=== PATIENT | male | born 1980 | race Two or more races ===

== ENCOUNTER 2018-06-10 12:41 | Emergency (ER) | payer MEDICAID ==
[~2018-06-10] VITALS: Ht 182.9 cm; Wt 82.0 kg
[2018-06-10] MEDS ORDERED: NOVOLIN 70/30 (13:50)
[2018-06-10 14:15] VITALS: BP 127/81
== END 2018-06-10 14:19 | disposition home or self-care (01) ==
LOC: ED 14:05
DX: G56.03 Carpal tunnel syndrome, bilateral upper limbs (principal); E11.65 Type 2 diabetes mellitus with hyperglycemia
CPT/HCPCS: 99283

== ENCOUNTER 2018-09-06 01:28 | Inpatient (IN) | payer MEDICAID ==
[~2018-09-06] VITALS: Ht 185.4 cm; Wt 76.1 kg
[~2018-09-06 01:28] MED LIST: NOVOLIN 70/30
[2018-09-06] MEDS ORDERED: SODIUM CHLORIDE 0.9% 1,000ML IVBOLUS ONE ×2 (01:30→05:00)
[2018-09-06] MEDS ORDERED: SODIUM CHLORIDE FLUSH 10ML SYR IVF ONE (01:30)
[2018-09-06] MEDS ORDERED: SODIUM BICARB 8.4%, 50ML SYRINGE ONE ×2 (01:36→14:07)
[2018-09-06] MEDS ORDERED: CALCIUM CHLORIDE 10%, 10ML SYR ONE (01:42)
[2018-09-06] MEDS ORDERED: DEXTROSE 50%, 50ML SYRINGE ONE (01:53)
[2018-09-06] MEDS ORDERED: ALBUTEROL 0.5%, 20ML ONE (01:54)
[2018-09-06] MEDS ORDERED: ALBUTEROL 0.5%, 20ML NPPB ONE (02:00)
[2018-09-06] MEDS ORDERED: CALCIUM CHLORIDE 10%, 10ML SYR IVPush ONE (02:00)
[2018-09-06] MEDS ORDERED: SODIUM BICARB 8.4%, 50ML SYRINGE IVPush ONE (02:00)
[2018-09-06 02:03] LABS: ALANINE AMINOTRANSFERASE 33 U/L (12-78); ALBUMIN 2.9 g/dL (3.4-5.0); ANION GAP 40 mmol/L (5-15); CALCIUM 8.1 mg/dL (8.5-10.1); CHLORIDE 84 mmol/L (98-107); CREATININE 4.02 mg/dL (0.7-1.3)
[2018-09-06 02:06] LABS: ALKALINE PHOSPHATASE 122 U/L (45-117); BILIRUBIN,TOTAL 0.5 mg/dL (0.2-1.0); CREATINE KINASE, TOTAL 136 U/L (39-308); TOTAL PROTEIN 6.2 g/dL (6.4-8.2)
[2018-09-06 02:13] LABS: ACETONE, SERUM Large (80mg/dL) mg/dL (Negative); MEAN CORPUSCULAR HEMOGLOBIN 30.2 pg (27.5-34.5); MEAN CORPUSCULAR HGB CONC 31.5 g/dL (33.2-36.2); MEAN CORPUSCULAR VOLUME 95.8 fL (81-97); MEAN PLATELET VOLUME 10.3 fL (7.4-10.4); PLATELET COUNT 254 x10^3/uL (130-400); RED BLOOD COUNT 4.47 x10^6/uL (4.38-5.82); RED CELL DISTRIBUTION WIDTH 15.3 % (9.4-14.8)
[2018-09-06 02:15] LABS: MICROSCOPIC NOT IND
[2018-09-06 02:16] LABS: CULTURE INDICATED? NO
[2018-09-06 02:30] LABS: BASOPHILS # (AUTO) 0.05 x10^3/uL (0-0.1); BASOPHILS % (AUTO) 0 % (0-1); EOSINOPHILS # (AUTO) 0.01 x10^3/uL (0-0.4); EOSINOPHILS % (AUTO) 0 % (1-7); LYMPHOCYTES # (AUTO) 1.49 x10^3/uL (1-3.4); LYMPHOCYTES % (AUTO) 7 % (22-44); MD SCAN; MONOCYTES # (AUTO) 1.09 x10^3/uL (0.2-0.8); MONOCYTES % (AUTO) 5 % (2-9); NEUTROPHILS # (AUTO) 19.33 x10^3/uL (1.8-6.8); NEUTROPHILS % (AUTO) 88 % (42-75)
[2018-09-06] MEDS ORDERED: MIDAZOLAM 1 MG/ML, 2ML IVPush ONE (02:30)
[2018-09-06] MEDS ORDERED: ETOMIDATE 20 MG/10 ML IVPush ONE (02:30)
[2018-09-06] MEDS ORDERED: ROCURONIUM 10 MG/ML,10ML IVPush ONE (02:30)
[2018-09-06] MEDS: MIDAZOLAM HCL 25 MG in SODIUM CHLORIDE 0.9% 245 ML IV PRN ×2 (02:46→06:45)
[2018-09-06] MEDS: REGULAR INSULIN 62.5 UNITS in SODIUM CHLORIDE 0.9% 249.375 ML IV PRN ×2 (02:49→03:14)
[2018-09-06 02:51] LABS: AMPHETAMINE SCREEN, URINE Positive (Negative); BARBITURATE SCREEN, URINE Negative (Negative); BENZODIAZEPINE SCREEN, URINE Negative (Negative); CANNABINOID SCREEN, URINE Negative (Negative); COCAINE SCREEN, URINE Negative (Negative); METHADONE SCREEN, URINE Negative (Negative); OPIATE SCREEN, URINE Negative (Negative)
[2018-09-06] MEDS ORDERED: REGULAR INSULIN 62.5 UNITS in SODIUM CHLORIDE 0.9% 249.375 ML IV PRN ×2 (03:11→08:30)
[2018-09-06] MEDS ORDERED: D5%-0.45% NACL 1,000 ML IV PRN (03:11)
[2018-09-06] MEDS ORDERED: ONDANSETRON 2MG/ML, 2ML IVPush PRN (03:30)
[2018-09-06 03:52] LABS: HEMOGLOBIN A1C 13.8 % (4.2-6.3)
[2018-09-06] MEDS: SODIUM CHLORIDE 0.9% 1,000 ML IV SCH ×3 (04:15→16:33)
[2018-09-06 04:54] LABS: MEAN CORPUSCULAR HEMOGLOBIN 29.5 pg (27.5-34.5); MEAN CORPUSCULAR HGB CONC 32.2 g/dL (33.2-36.2); MEAN CORPUSCULAR VOLUME 91.6 fL (81-97); MEAN PLATELET VOLUME 9.2 fL (7.4-10.4); PLATELET COUNT 313 x10^3/uL (130-400); RED BLOOD COUNT 4.53 x10^6/uL (4.38-5.82); RED CELL DISTRIBUTION WIDTH 14.3 % (9.4-14.8)
[2018-09-06 04:56] LABS: CHLORIDE 99 mmol/L (98-107); CREATININE 3.59 mg/dL (0.7-1.3)
[2018-09-06] MEDS ORDERED: NOREPINEPHRINE 4 MG in SODIUM CHLORIDE 0.9% 246 ML IV PRN (05:00)
[2018-09-06 05:05] LABS: CALCIUM 8.1 mg/dL (8.5-10.1)
[2018-09-06 05:06] LABS: ANION GAP 33 mmol/L (5-15)
[2018-09-06 05:16] LABS: BASOPHILS # (AUTO) 0.03 x10^3/uL (0-0.1); BASOPHILS % (AUTO) 0 % (0-1); EOSINOPHILS % (AUTO) 0 % (1-7); LYMPHOCYTES # (AUTO) 2.89 x10^3/uL (1-3.4); LYMPHOCYTES % (AUTO) 13 % (22-44); MD SCAN; MONOCYTES # (AUTO) 1.47 x10^3/uL (0.2-0.8); MONOCYTES % (AUTO) 7 % (2-9); NEUTROPHILS % (AUTO) 81 % (42-75)
[2018-09-06 06:15] VITALS: BP 95/55
[2018-09-06 07:02] VITALS: BP 87/43
[2018-09-06 07:54] LABS: ANION GAP 24 mmol/L (5-15); CALCIUM 8.3 mg/dL (8.5-10.1); CHLORIDE 108 mmol/L (98-107)
[2018-09-06] MEDS ORDERED: PHARMACY MAY ADJ FOR RENAL FX MC SCH (08:00)
[2018-09-06] MEDS ORDERED: PROPOFOL 0 ML IV ONE (08:05)
[2018-09-06] MEDS ORDERED: VANCOMYCIN PER PHARMACY MC PRN (08:30)
[2018-09-06] MEDS: PROPOFOL 100 ML IV PRN ×2 (08:57→13:58)
[2018-09-06] MEDS: ACETAMINOPHEN 325 MG TABLET PO PRN ×3 (08:58→17:50)
[2018-09-06] MEDS ORDERED: PHARMACOKINETIC MONITORING MC PRN (10:00)
[2018-09-06] MEDS ORDERED: VANCOMYCIN 1,400 MG in SODIUM CHLORIDE 0.9% 250 ML IV ONE (10:00)
[2018-09-06 11:48] LABS: ANION GAP 11 mmol/L (5-15); CALCIUM 8.3 mg/dL (8.5-10.1); CHLORIDE 114 mmol/L (98-107); CREATININE 2.84 mg/dL (0.7-1.3)
[2018-09-06] MEDS: LIDOCAINE-MPF 1%, 2ML ENDO PRN ×2 (13:02→17:36)
[2018-09-06] MEDS ORDERED: MORPHINE SULFATE 4 MG/ML, 1ML IVPush PRN (13:30)
[2018-09-06] MEDS ORDERED: ETOMIDATE 20 MG/10 ML ONE (15:16)
[2018-09-06] MEDS ORDERED: MIDAZOLAM 1 MG/ML, 5ML ONE (15:16)
[2018-09-06] MEDS ORDERED: ROCURONIUM 10MG/ML,5ML ONE (15:16)
[2018-09-06 15:56] LABS: ANION GAP 11 mmol/L (5-15); CALCIUM 8.4 mg/dL (8.5-10.1); CHLORIDE 117 mmol/L (98-107); CREATININE 2.42 mg/dL (0.7-1.3)
[2018-09-06] MEDS: MORPHINE SULFATE 4 MG/ML, 1ML IVPush PRN ×2 (16:43→17:39)
[2018-09-06] MEDS: DEXTROSE 5% 1,000 ML IV SCH (17:17)
[2018-09-06 19:58] LABS: ANION GAP 10 mmol/L (5-15); CALCIUM 8.4 mg/dL (8.5-10.1); CHLORIDE 118 mmol/L (98-107); CREATININE 2.04 mg/dL (0.7-1.3)
[2018-09-06] MEDS: PANTOPRAZOLE 40 MG IV IVPush SCH (23:04)
[2018-09-06 23:30] LABS: ANION GAP 9 mmol/L (5-15); CALCIUM 8.7 mg/dL (8.5-10.1); CHLORIDE 120 mmol/L (98-107); CREATININE 1.73 mg/dL (0.7-1.3)
[2018-09-07] MEDS ORDERED: DEXTROSE 4 GM TAB.CHEW PO PRN
[2018-09-07] MEDS ORDERED: DEXTROSE 50%, 50ML SYRINGE IVPush PRN
[2018-09-07] MEDS ORDERED: GLUCAGON 1 MG IM PRN
[2018-09-07] MEDS: PROPOFOL 100 ML IV PRN ×4 (00:21→22:18)
[2018-09-07] MEDS: INSULIN GLARGINE 100 UNITS/ML, PEN SQ-INSULIN SCH ×2 (00:26→13:38)
[2018-09-07 03:49] LABS: MEAN CORPUSCULAR HEMOGLOBIN 29.9 pg (27.5-34.5); MEAN CORPUSCULAR HGB CONC 33.7 g/dL (33.2-36.2); MEAN CORPUSCULAR VOLUME 88.6 fL (81-97); MEAN PLATELET VOLUME 8.5 fL (7.4-10.4); PLATELET COUNT 244 x10^3/uL (130-400); RED BLOOD COUNT 4.81 x10^6/uL (4.38-5.82)
[2018-09-07 03:52] LABS: ANION GAP 13 mmol/L (5-15); CALCIUM 8.6 mg/dL (8.5-10.1); CHLORIDE 117 mmol/L (98-107); CREATININE 1.56 mg/dL (0.7-1.3)
[2018-09-07 03:53] LABS: VANCOMYCIN,RANDOM 5.5 mcg/mL
[2018-09-07 04:20] LABS: MD YES
[2018-09-07 04:22] LABS: <PLATELET ESTIMATE> ADEQUATE; <PLT MORPHOLOGY> NORMAL PLT MORPH; <RBC MORPHOLOGY> NORMAL; BAND#(MANUAL) 0.16 x10^3/uL; BANDS%(MANUAL) 1 % (0-7); LYMPH#(MANUAL) 1.44 x10^3/uL (1-3.4); LYMPHS% (MANUAL) 9 % (22-44); MONOS#(MANUAL) 1.12 x10^3/uL (0.3-2.7); MONOS% (MANUAL) 7 % (2-9); SEG#(MANUAL) 13.28 x10^3/uL (1.8-6.8); SEGS% (MANUAL) 83 % (42-75)
[2018-09-07] MEDS: INSULIN LISPRO 100 UNITS/ML, PEN SQ-INSULIN SCH ×5 (06:28→22:17)
[2018-09-07] MEDS: DEXTROSE 5% 1,000 ML IV SCH (07:09)
[2018-09-07] MEDS: SODIUM CHLORIDE FLUSH 10ML SYR IVF SCH ×2 (09:04→19:57)
[2018-09-07] MEDS: PANTOPRAZOLE 40 MG IV IVPush SCH ×2 (09:04→19:57)
[2018-09-07 10:27] LABS: ANION GAP 12 mmol/L (5-15); CALCIUM 8.4 mg/dL (8.5-10.1); CHLORIDE 114 mmol/L (98-107)
[2018-09-07 10:28] LABS: CREATININE 1.57 mg/dL (0.7-1.3)
[2018-09-07] MEDS: SODIUM CHLORIDE 0.45% 1,000 ML IV SCH (13:38)
[2018-09-07 16:26] LABS: ANION GAP 10 mmol/L (5-15); CALCIUM 8.9 mg/dL (8.5-10.1); CHLORIDE 113 mmol/L (98-107); CREATININE 1.25 mg/dL (0.7-1.3)
[2018-09-07 21:46] LABS: ANION GAP 11 mmol/L (5-15); CALCIUM 8.7 mg/dL (8.5-10.1); CHLORIDE 107 mmol/L (98-107); CREATININE 1.14 mg/dL (0.7-1.3)
[2018-09-08] MEDS: INSULIN GLARGINE 100 UNITS/ML, PEN SQ-INSULIN SCH ×2 (00:58→11:36)
[2018-09-08] MEDS: INSULIN LISPRO 100 UNITS/ML, PEN SQ-INSULIN SCH ×6 (02:42→21:35)
[2018-09-08] MEDS: SODIUM CHLORIDE 0.45% 1,000 ML IV SCH ×2 (02:43→20:34)
[2018-09-08 03:50] LABS: MEAN CORPUSCULAR HEMOGLOBIN 29.5 pg (27.5-34.5); MEAN CORPUSCULAR HGB CONC 33.6 g/dL (33.2-36.2); MEAN CORPUSCULAR VOLUME 87.6 fL (81-97); MEAN PLATELET VOLUME 8.1 fL (7.4-10.4); PLATELET COUNT 210 x10^3/uL (130-400); RED CELL DISTRIBUTION WIDTH 14.1 % (9.4-14.8)
[2018-09-08 04:02] LABS: ALANINE AMINOTRANSFERASE 31 U/L (12-78); ALBUMIN 2.8 g/dL (3.4-5.0); ANION GAP 10 mmol/L (5-15); CALCIUM 8.8 mg/dL (8.5-10.1); CHLORIDE 105 mmol/L (98-107)
[2018-09-08 04:04] LABS: ALKALINE PHOSPHATASE 106 U/L (45-117); BILIRUBIN,TOTAL 0.9 mg/dL (0.2-1.0); TOTAL PROTEIN 6.6 g/dL (6.4-8.2)
[2018-09-08 04:26] LABS: BASOPHILS # (AUTO) 0.02 x10^3/uL (0-0.1); BASOPHILS % (AUTO) 0 % (0-1); EOSINOPHILS % (AUTO) 0 % (1-7); LYMPHOCYTES # (AUTO) 1.71 x10^3/uL (1-3.4); LYMPHOCYTES % (AUTO) 12 % (22-44); MD SCAN; MONOCYTES # (AUTO) 0.84 x10^3/uL (0.2-0.8); MONOCYTES % (AUTO) 6 % (2-9); NEUTROPHILS # (AUTO) 12.12 x10^3/uL (1.8-6.8); NEUTROPHILS % (AUTO) 83 % (42-75)
[2018-09-08] MEDS ORDERED: POTASSIUM PHOSPHATE 44 MEQ in SODIUM CHLORIDE 0.9% 500 ML IV ONE (08:00)
[2018-09-08] MEDS ORDERED: ALBUTEROL/IPRATROPIUM 2.5MG/0.5MG, 3 ML NPPB PRN (11:00)
[2018-09-08] MEDS: SODIUM CHLORIDE FLUSH 10ML SYR IVF SCH ×2 (11:33→21:00)
[2018-09-08] MEDS: ENOXAPARIN 40 MG/0.4 ML SQ SCH (14:30)
[2018-09-08 20:47] VITALS: BP 120/82
[2018-09-08 21:59] VITALS: BP 108/70
[2018-09-08] MEDS ORDERED: SODIUM CHLORIDE 0.45%, 1,000ML IVBOLUS ONE (22:30)
[2018-09-09 01:03] VITALS: BP 113/71
[2018-09-09] MEDS: INSULIN GLARGINE 100 UNITS/ML, PEN SQ-INSULIN SCH ×3 (01:28→23:26)
[2018-09-09] MEDS: SODIUM CHLORIDE 0.45% 1,000 ML IV SCH (05:23)
[2018-09-09 05:24] LABS: BASOPHILS # (AUTO) 0.04 x10^3/uL (0-0.1); BASOPHILS % (AUTO) 0 % (0-1); EOSINOPHILS # (AUTO) 0.02 x10^3/uL (0-0.4); EOSINOPHILS % (AUTO) 0 % (1-7); LYMPHOCYTES # (AUTO) 1.73 x10^3/uL (1-3.4); LYMPHOCYTES % (AUTO) 17 % (22-44); MD NO; MEAN CORPUSCULAR HEMOGLOBIN 29.6 pg (27.5-34.5); MEAN CORPUSCULAR HGB CONC 33.1 g/dL (33.2-36.2); MEAN CORPUSCULAR VOLUME 89.4 fL (81-97); MEAN PLATELET VOLUME 8.8 fL (7.4-10.4); MONOCYTES # (AUTO) 0.55 x10^3/uL (0.2-0.8); MONOCYTES % (AUTO) 5 % (2-9); NEUTROPHILS # (AUTO) 7.92 x10^3/uL (1.8-6.8); NEUTROPHILS % (AUTO) 77 % (42-75); PLATELET COUNT 184 x10^3/uL (130-400); RED BLOOD COUNT 5.01 x10^6/uL (4.38-5.82); RED CELL DISTRIBUTION WIDTH 13.7 % (9.4-14.8)
[2018-09-09] MEDS: INSULIN LISPRO 100 UNITS/ML, PEN SQ-INSULIN SCH ×4 (07:00→21:00)
[2018-09-09] MEDS: ENOXAPARIN 40 MG/0.4 ML SQ SCH (07:39)
[2018-09-09 07:48] VITALS: BP 107/71
[2018-09-09] MEDS: SODIUM CHLORIDE FLUSH 10ML SYR IVF SCH ×2 (08:13→21:53)
[2018-09-09 14:06] VITALS: BP 102/68
[2018-09-09 18:42] VITALS: BP 122/84
[2018-09-09] MEDS: ACETAMINOPHEN 325 MG TABLET PO PRN (22:22)
[2018-09-10 01:11] VITALS: BP 94/60
[2018-09-10] MEDS: INSULIN LISPRO 100 UNITS/ML, PEN SQ-INSULIN SCH ×4 (07:00→19:43)
[2018-09-10 07:17] VITALS: BP 124/79
[2018-09-10] MEDS: SODIUM CHLORIDE FLUSH 10ML SYR IVF SCH ×2 (09:00→19:31)
[2018-09-10] MEDS: ENOXAPARIN 40 MG/0.4 ML SQ SCH (09:05)
[2018-09-10] MEDS: INSULIN GLARGINE 100 UNITS/ML, PEN SQ-INSULIN SCH ×2 (11:00→22:43)
[2018-09-10] MEDS ORDERED: LIDOCAINE 2% VISCOUS, 100ML MM PRN ×2 (11:00)
[2018-09-10] MEDS ORDERED: LIDOCAINE 2% VISCOUS 15 ML UDC MM PRN (13:30)
[2018-09-10 13:50] VITALS: BP 109/73
[2018-09-10 19:03] VITALS: BP 112/75
[2018-09-11 03:42] VITALS: BP 113/80
[2018-09-11] MEDS: INSULIN LISPRO 100 UNITS/ML, PEN SQ-INSULIN SCH ×4 (07:00→19:56)
[2018-09-11] MEDS ORDERED: PLEASE ENTER HEIGHT AND WEIGHT MC SCH (07:00)
[2018-09-11] MEDS: ENOXAPARIN 40 MG/0.4 ML SQ SCH (07:35)
[2018-09-11] MEDS: SODIUM CHLORIDE FLUSH 10ML SYR IVF SCH ×2 (07:36→19:46)
[2018-09-11 08:30] VITALS: BP 113/76
[2018-09-11] MEDS: INSULIN GLARGINE 100 UNITS/ML, PEN SQ-INSULIN SCH ×2 (12:20→22:39)
[2018-09-11 14:30] VITALS: BP 101/58
[2018-09-11 19:41] VITALS: BP 118/76
[2018-09-12 00:46] VITALS: BP 116/73
[2018-09-12 05:45] LABS: BASOPHILS # (AUTO) 0.02 x10^3/uL (0-0.1); BASOPHILS % (AUTO) 0 % (0-1); EOSINOPHILS % (AUTO) 1 % (1-7); LYMPHOCYTES # (AUTO) 1.83 x10^3/uL (1-3.4); LYMPHOCYTES % (AUTO) 24 % (22-44); MD NO; MEAN CORPUSCULAR HEMOGLOBIN 29.8 pg (27.5-34.5); MEAN CORPUSCULAR HGB CONC 33.9 g/dL (33.2-36.2); MEAN CORPUSCULAR VOLUME 87.9 fL (81-97); MEAN PLATELET VOLUME 8.3 fL (7.4-10.4); MONOCYTES # (AUTO) 0.96 x10^3/uL (0.2-0.8); MONOCYTES % (AUTO) 12 % (2-9); NEUTROPHILS # (AUTO) 4.86 x10^3/uL (1.8-6.8); NEUTROPHILS % (AUTO) 63 % (42-75); PLATELET COUNT 293 x10^3/uL (130-400); RED BLOOD COUNT 4.41 x10^6/uL (4.38-5.82)
[2018-09-12 06:42] LABS: ALBUMIN 2.3 g/dL (3.4-5.0); ANION GAP 8 mmol/L (5-15); CALCIUM 8.2 mg/dL (8.5-10.1); CHLORIDE 108 mmol/L (98-107)
[2018-09-12 06:44] LABS: CREATININE 0.61 mg/dL (0.7-1.3)
[2018-09-12] MEDS: INSULIN LISPRO 100 UNITS/ML, PEN SQ-INSULIN SCH ×2 (07:00→11:00)
[2018-09-12] MEDS: ENOXAPARIN 40 MG/0.4 ML SQ SCH (08:10)
[2018-09-12] MEDS: SODIUM CHLORIDE FLUSH 10ML SYR IVF SCH (08:11)
[2018-09-12 08:30] VITALS: BP 127/80
[2018-09-12] MEDS ORDERED: LACTOBACILLUS 1GM/ PACKET PO SCH (09:00)
[2018-09-12] MEDS ORDERED: CIPROFLOXACIN 500 MG TABLET PO SCH (09:00)
[2018-09-12] MEDS ORDERED: KETOROLAC 30 MG/1 ML IVPush SCH (09:30)
[2018-09-12] MEDS: INSULIN GLARGINE 100 UNITS/ML, PEN SQ-INSULIN SCH (12:20)
[2018-09-12] MEDS ORDERED: INSU100I13 SQ-INSULIN (12:30)
[2018-09-12] MEDS ORDERED: ACID1GRA3 PO (12:30)
[2018-09-12] MEDS ORDERED: CIPR500T87 PO (12:30)
[2018-09-12] MEDS ORDERED: KETO10TA PO (12:31)
== END 2018-09-12 14:30 | disposition home or self-care (01) | DRG 208 ==
LOC: ED 02:30 → MERGE 02:31 → EDIP 02:31 → EDBD 02:31 → ED 02:38 → CCU 03:49 → 5SO 09-08 18:34 → 3NE 09-09 17:06 → DCLOUNGE 09-12 14:13
PROVIDERS: ADMIT Hospitalist; ATTEND Hospitalist
PROC: 5A1945Z Respiratory Ventilation, 24-96 Consecutive Hours (ICD-10-PCS; principal; 2018-09-06)
PROC: 02HV33Z Insertion of Infusion Device into Superior Vena Cava, Percutaneous Approach (ICD-10-PCS; 2018-09-06)
PROC: 0BH17EZ Insertion of Endotracheal Airway into Trachea, Via Natural or Artificial Opening (ICD-10-PCS; 2018-09-06)
PROC: BD11YZZ Fluoroscopy of Esophagus using Other Contrast (ICD-10-PCS; 2018-09-12)
DX: J96.00 Acute respiratory failure, unspecified whether with hypoxia or hypercapnia (principal); E11.10 Type 2 diabetes mellitus with ketoacidosis without coma; G92 Toxic encephalopathy; N17.0 Acute kidney failure with tubular necrosis; E87.0 Hyperosmolality and hypernatremia; E87.1 Hypo-osmolality and hyponatremia; R65.10 Systemic inflammatory response syndrome (SIRS) of non-infectious origin without acute organ dysfunction; Z99.11 Dependence on respirator [ventilator] status; E83.51 Hypocalcemia; E86.0 Dehydration; E87.5 Hyperkalemia; J02.9 Acute pharyngitis, unspecified; E87.8 Other disorders of electrolyte and fluid balance, not elsewhere classified; F15.10 Other stimulant abuse, uncomplicated; Z51.5 Encounter for palliative care; Z87.828 Personal history of other (healed) physical injury and trauma; Z91.19 Patient's noncompliance with other medical treatment and regimen; Z23 Encounter for immunization
CPT/HCPCS: 31500; 36415; 36556; 36600; 71045; 74220; 76770; 80047; 80048; 80053; 80074; 80202; 80307; 81003; 82010; 82040; 82550; 82803; 82805; 82947; 82962; 83036; 83690; 83735; 84100; 84478; 85025; 86803; 87040; 87070; 87077; 87081; 87147; 87205; 87806; 90656; 93005; 93306; 94002; 94003; 96374; 96375; 99291; G0378; J1650; J1815; J1885; J2250; J2704; J3370; J3490; J7070; C9113; G0475; J7030; J7040; J7050

== ENCOUNTER 2018-09-22 21:35 | Emergency (ER) | payer MEDICAID ==
[~2018-09-22] VITALS: Ht 185.4 cm; Wt 85.0 kg
[~2018-09-22 21:35] MED LIST changes: +ACID1GRA3 PO; +CIPR500T87 PO; +INSU100I13 SQ-INSULIN; +KETO10TA PO
[2018-09-22 22:26] LABS: BASOPHILS # (AUTO) 0.04 x10^3/uL (0-0.1); BASOPHILS % (AUTO) 0 % (0-1); EOSINOPHILS # (AUTO) 0.02 x10^3/uL (0-0.4); EOSINOPHILS % (AUTO) 0 % (1-7); LYMPHOCYTES # (AUTO) 2.06 x10^3/uL (1-3.4); LYMPHOCYTES % (AUTO) 21 % (22-44); MD NO; MEAN CORPUSCULAR HEMOGLOBIN 30.1 pg (27.5-34.5); MEAN CORPUSCULAR HGB CONC 34.1 g/dL (33.2-36.2); MEAN CORPUSCULAR VOLUME 88.3 fL (81-97); MEAN PLATELET VOLUME 7.5 fL (7.4-10.4); MONOCYTES # (AUTO) 0.66 x10^3/uL (0.2-0.8); MONOCYTES % (AUTO) 7 % (2-9); NEUTROPHILS # (AUTO) 7.28 x10^3/uL (1.8-6.8); NEUTROPHILS % (AUTO) 72 % (42-75); PLATELET COUNT 456 x10^3/uL (130-400); RED BLOOD COUNT 4.03 x10^6/uL (4.38-5.82); RED CELL DISTRIBUTION WIDTH 14.6 % (9.4-14.8)
[2018-09-22] MEDS ORDERED: ONDANSETRON ODT 4 MG ONE (22:28)
[2018-09-22] MEDS ORDERED: ONDANSETRON ODT 4 MG PO ONE (22:30)
[2018-09-22 22:39] LABS: ALANINE AMINOTRANSFERASE 57 U/L (12-78); ALBUMIN 2.8 g/dL (3.4-5.0); ANION GAP 10 mmol/L (5-15); CALCIUM 8.4 mg/dL (8.5-10.1); CHLORIDE 97 mmol/L (98-107)
[2018-09-22 22:41] LABS: TROPONIN I < 0.015 ng/mL (0.000-0.045)
[2018-09-22 22:43] LABS: ALKALINE PHOSPHATASE 119 U/L (45-117); BILIRUBIN,TOTAL 0.4 mg/dL (0.2-1.0); TOTAL PROTEIN 6.6 g/dL (6.4-8.2)
[2018-09-22 23:34] VITALS: BP 115/76
== END 2018-09-22 23:36 | disposition home or self-care (01) ==
LOC: ED 23:17
DX: R11.2 Nausea with vomiting, unspecified (principal); R19.7 Diarrhea, unspecified; R10.84 Generalized abdominal pain; R07.2 Precordial pain; E11.65 Type 2 diabetes mellitus with hyperglycemia
CPT/HCPCS: 36415; 71045; 80053; 82962; 83690; 83880; 84484; 85025; 93005; 99285; Q0162

== ENCOUNTER 2019-02-24 17:48 | Emergency (ER) | payer MEDICAID ==
[~2019-02-24] VITALS: Ht 182.9 cm; Wt 86.0 kg
[2019-02-24 18:01] VITALS: BP 124/73
[2019-02-24] MEDS ORDERED: PROPARACAINE OPHTH 0.5%, 15ML EACHEYE ONE (18:30)
[2019-02-24] MEDS ORDERED: FLUORESCEIN OPHTHALMIC 1 MG STRIP EACHEYE ONE (18:30)
--- NOTE | 2019-02-24 20:13 | NUR ---
pt not in lobby when called to room
--- NOTE | 2019-02-24 20:16 | NUR ---
pt called, not in lobby
--- NOTE | 2019-02-24 20:45 | NUR ---
not in lobby
== END 2019-02-24 20:47 | disposition left against medical advice (07) ==
LOC: ED 20:41
DX: H57.89 Other specified disorders of eye and adnexa (principal)
CPT/HCPCS: 99282

== ENCOUNTER 2019-03-22 05:42 | Emergency (ER) | payer MEDICAID ==
[~2019-03-22] VITALS: Ht 182.9 cm; Wt 91.0 kg
[2019-03-22 05:50] VITALS: BP 114/78
[2019-03-22 06:49] LABS: ALBUMIN 4.2 g/dL (3.4-5.0); ANION GAP 7 mmol/L (5-15); CALCIUM 9.8 mg/dL (8.5-10.1); CHLORIDE 95 mmol/L (98-107); CREATININE 1.22 mg/dL (0.7-1.3)
--- NOTE | 2019-03-22 06:55 | NUR ---
REPORT RECEIVED, CARE ASSUMED.
--- NOTE | 2019-03-22 08:11 | NUR ---
PT MOSTLY SLEEPING, AROUSES TO NAME. NO ACUTE DISTRESS NOTED. NO IV TO DC. REVIEWED DC INSTRUCTIONS WITH PT. UNDERSTANDING VERBALIZED. PT LEFT AMB. GAIT SLOW AND STEADY.
== END 2019-03-22 08:14 | disposition home or self-care (01) ==
LOC: ED 06:05
DX: F15.129 Other stimulant abuse with intoxication, unspecified (principal); E87.1 Hypo-osmolality and hyponatremia; E11.65 Type 2 diabetes mellitus with hyperglycemia
CPT/HCPCS: 80048; 82040; 82962; 83735; 99283

== ENCOUNTER 2019-04-28 12:14 | Emergency (ER) | payer OTHER, MEDICAID ==
[~2019-04-28] VITALS: Ht 182.9 cm; Wt 75.0 kg
[2019-04-28] MEDS ORDERED: INSU100C5 SQ-INSULIN (12:37)
[2019-04-28] MEDS ORDERED: GABA600T7 PO (12:37)
[2019-04-28] MEDS ORDERED: KEPPRA (12:37)
[2019-04-28 12:54] LABS: BASOPHILS % (AUTO) 0 % (0-1); EOSINOPHILS # (AUTO) 0.01 x10^3/uL (0-0.4); EOSINOPHILS % (AUTO) 0 % (1-7); LYMPHOCYTES % (AUTO) 7 % (22-44); MD NO; MEAN CORPUSCULAR HEMOGLOBIN 30.2 pg (27.5-34.5); MEAN CORPUSCULAR HGB CONC 32.9 g/dL (33.2-36.2); MEAN CORPUSCULAR VOLUME 91.7 fL (81-97); MEAN PLATELET VOLUME 7.7 fL (7.4-10.4); MONOCYTES # (AUTO) 0.78 x10^3/uL (0.2-0.8); MONOCYTES % (AUTO) 5 % (2-9); NEUTROPHILS # (AUTO) 14.34 x10^3/uL (1.8-6.8); NEUTROPHILS % (AUTO) 88 % (42-75); PLATELET COUNT 341 x10^3/uL (130-400); RED BLOOD COUNT 5.15 x10^6/uL (4.38-5.82); RED CELL DISTRIBUTION WIDTH 15.1 % (9.4-14.8)
[2019-04-28 13:03] LABS: ALBUMIN 3.8 g/dL (3.4-5.0); ANION GAP 5 mmol/L (5-15); CALCIUM 9.1 mg/dL (8.5-10.1); CHLORIDE 104 mmol/L (98-107); CREATININE 0.78 mg/dL (0.7-1.3)
--- NOTE | 2019-04-28 14:09 | NUR ---
PT LAYING ON GURNEY AWAKE & COMFORTABLE, WATCHING TV, RESPONDS APPROP TO STAFF, NAD, COMFORT MEASURES PROVIDED, WCSO AT BS, CALL LIGHT WITHIN REACH.
--- NOTE | 2019-04-28 14:56 | NUR ---
report given to Bushra
--- NOTE | 2019-04-28 15:06 | NUR ---
report from sabra franks. diet tray provided. no other needs at this time. awaiting further orders.
--- NOTE | 2019-04-28 15:13 | NUR ---
pt resting in room eating diet tray with devendra at bs. vss. no needs expressed. awaiting further orders.
[2019-04-28 16:28] VITALS: BP 111/74
--- NOTE | 2019-04-28 16:28 | NUR ---
pt resting in room with devendra at bs. vss. warm broth provided. dc instructions given and paperwork signed by devendra.
== END 2019-04-28 17:08 | disposition home or self-care (01) ==
LOC: ED 13:49
DX: E10.649 Type 1 diabetes mellitus with hypoglycemia without coma (principal); Z79.4 Long term (current) use of insulin; Z88.0 Allergy status to penicillin
CPT/HCPCS: 80048; 80307; 82040; 82962; 85025; 99283

== ENCOUNTER 2019-06-05 02:07 | Inpatient (IN) | payer MEDICAID ==
[~2019-06-05] VITALS: Ht 185.4 cm; Wt 78.2 kg
[2019-06-08 13:38] VITALS: BP 106/66
== END 2019-06-08 18:00 | disposition home or self-care (01) | DRG 683 ==
LOC: EDBD → MERGE 09:57 → ED 09:57 → OBSVTOIN 10:30 → EDIP 10:30 → INTOOBSV 10:30 → 3NE 11:19
PROVIDERS: ADMIT Internal Medicine; ATTEND Internal Medicine
DX: N17.9 Acute kidney failure, unspecified (principal); E46 Unspecified protein-calorie malnutrition; E11.65 Type 2 diabetes mellitus with hyperglycemia; E86.0 Dehydration; E87.5 Hyperkalemia; E87.6 Hypokalemia; F10.10 Alcohol abuse, uncomplicated; Y90.9 Presence of alcohol in blood, level not specified; Z63.8 Other specified problems related to primary support group; G40.909 Epilepsy, unspecified, not intractable, without status epilepticus; F15.10 Other stimulant abuse, uncomplicated; Z88.0 Allergy status to penicillin; Z68.22 Body mass index [BMI] 22.0-22.9, adult
CPT/HCPCS: 36415; 80048; 80053; 80069; 80307; 81003; 82947; 82962; 83735; 85025; 93005; 96361; 96374; 96375; 96376; G0378; J1815; J2405; J3411; J3475; J3480; J7030; J7050; J7120

== ENCOUNTER → 2019-12-22 | Outpatient (CLI) | payer OTHER ==
[~2019-12-22] MED LIST changes: +GABA600T7 PO; +INSU100C5 SQ-INSULIN; +INSU100V34 SQ-INSULIN; +KEPPRA
== END | disposition home or self-care (01) ==
LOC: RAD 10:04
PROVIDERS: ATTEND Internal Medicine Endocrinology, Diabetes & Metabolism
DX: S93.402A Sprain of unspecified ligament of left ankle, initial encounter (principal); M19.072 Primary osteoarthritis, left ankle and foot; E10.65 Type 1 diabetes mellitus with hyperglycemia; M79.89 Other specified soft tissue disorders; M25.78 Osteophyte, vertebrae; J00 Acute nasopharyngitis [common cold]; X58.XXXA Exposure to other specified factors, initial encounter; Y92.89 Other specified places as the place of occurrence of the external cause; Y93.89 Activity, other specified; Y99.8 Other external cause status

== ENCOUNTER 2020-02-01 13:20 | Inpatient (IN) | payer MEDICAID, OTHER ==
[~2020-02-01] VITALS: Ht 185.4 cm; Wt 88.5 kg
[2020-02-01] MEDS ORDERED: SODIUM CHLORIDE 0.9% 1,000ML IVBOLUS ONE ×3 (13:30→15:00)
[2020-02-01] MEDS ORDERED: PROMETHAZINE 25 MG/ML, 1ML IM ONE (13:30)
[2020-02-01 13:56] LABS: MEAN CORPUSCULAR HEMOGLOBIN 29.7 pg (27.5-34.5); MEAN CORPUSCULAR HGB CONC 33.4 g/dL (33.2-36.2); MEAN PLATELET VOLUME 8.8 fL (7.4-10.4); PH, VENOUS 7.215 pH (7.320-7.420); PLATELET COUNT 264 x10^3/uL (130-400); RED BLOOD COUNT 5.39 x10^6/uL (4.38-5.82); RED CELL DISTRIBUTION WIDTH 13.6 % (9.4-14.8)
[2020-02-01 13:57] LABS: FIO2 ROOM AIR %
[2020-02-01 14:08] LABS: ALANINE AMINOTRANSFERASE 73 U/L (12-78); ALBUMIN 4.6 g/dL (3.4-5.0); ANION GAP 24 mmol/L (5-15); CALCIUM 9.7 mg/dL (8.5-10.1); CHLORIDE 94 mmol/L (98-107); CREATININE 1.47 mg/dL (0.7-1.3)
--- NOTE | 2020-02-01 14:09 | NUR ---
TASK RN: PT MEDICATED PER EMAR FOR NAUSEA. EMESIS BAG DISPOSED. APPROX 150ML RED EMESIS NOTED. ERP AWARE
[2020-02-01 14:10] LABS: ALKALINE PHOSPHATASE 90 U/L (45-117); BILIRUBIN,TOTAL 0.8 mg/dL (0.2-1.0); TOTAL PROTEIN 8.7 g/dL (6.4-8.2)
[2020-02-01] MEDS ORDERED: PANTOPRAZOLE 40 MG IV ONE (14:16)
[2020-02-01] MEDS ORDERED: METOCLOPRAMIDE 5 MG/ML, 2ML IVPush ONE (14:30)
[2020-02-01 14:38] LABS: MD YES
[2020-02-01 14:39] LABS: ACETONE, SERUM Large (80mg/dL) (Negative)
[2020-02-01] MEDS ORDERED: METOCLOPRAMIDE 5 MG/ML, 2ML ONE (14:40)
[2020-02-01] MEDS ORDERED: D5%-0.45NACL+KCL 20MEQ 1,000 ML IV SCH (14:42)
--- NOTE | 2020-02-01 14:44 | NUR ---
TBADM ICU FOR DKA. LAW IN ROOM FOR REEVAL. VOMITING EVEN AFTER MEDS. MORE MEDS ORDERED. UA SENT
[2020-02-01] MEDS ORDERED: LABETALOL 5MG/ML, 20ML IVPush PRN (15:00)
[2020-02-01] MEDS ORDERED: ACETAMINOPHEN 325 MG TABLET PO PRN (15:00)
[2020-02-01] MEDS ORDERED: POLYETHYLENE GLYCOL 17 GM PACKET PO PRN (15:00)
[2020-02-01] MEDS ORDERED: BISACODYL 10 MG SUPP PR PRN (15:00)
[2020-02-01] MEDS ORDERED: DOCUSATE 100 MG CAPSULE PO PRN (15:00)
[2020-02-01] MEDS ORDERED: ONDANSETRON 2MG/ML, 2ML IV PRN (15:00)
[2020-02-01 15:09] LABS: MICROSCOPIC NOT IND
--- NOTE | 2020-02-01 15:29 | NUR ---
REPORT TO SWETA HARTMAN
[2020-02-01 15:34] LABS: ALANINE AMINOTRANSFERASE 67 U/L (12-78); ALBUMIN 4.2 g/dL (3.4-5.0); ANION GAP 21 mmol/L (5-15); CALCIUM 8.8 mg/dL (8.5-10.1); CHLORIDE 100 mmol/L (98-107)
[2020-02-01 15:37] LABS: ALKALINE PHOSPHATASE 82 U/L (45-117); BILIRUBIN,TOTAL 0.9 mg/dL (0.2-1.0); CREATININE 1.53 mg/dL (0.7-1.3); TOTAL PROTEIN 7.9 g/dL (6.4-8.2)
[2020-02-01 15:40] LABS: CULTURE INDICATED? NO
[2020-02-01 15:43] LABS: BAND#(MANUAL) 1.26 x10^3/uL; BANDS%(MANUAL) 6 % (0-7); LYMPH#(MANUAL) 0.84 x10^3/uL (1-3.4); LYMPHS% (MANUAL) 4 % (22-44); MONOS#(MANUAL) 0.42 x10^3/uL (0.3-2.7); MONOS% (MANUAL) 2 % (2-9); SEG#(MANUAL) 18.48 x10^3/uL (1.8-6.8); SEGS% (MANUAL) 88 % (42-75)
[2020-02-01 15:44] LABS: <PLATELET ESTIMATE> ADEQUATE; <PLT MORPHOLOGY> NORMAL PLT MORPH; <RBC MORPHOLOGY> NORMAL
[2020-02-01] MEDS: REGULAR INSULIN 100 UNITS in SODIUM CHLORIDE 0.9% 99 ML IV PRN ×2 (16:18→23:01)
[2020-02-01] MEDS: PANTOPRAZOLE 40 MG IV IVPush SCH (16:30)
[2020-02-01] MEDS: SODIUM CHLORIDE 0.9% 1,000 ML IV SCH ×2 (17:27→23:00)
[2020-02-01] MEDS: ENOXAPARIN 40 MG/0.4 ML SQ SCH (17:30)
[2020-02-01 21:24] VITALS: BP 116/55
[2020-02-01 21:52] LABS: ANION GAP 15 mmol/L (5-15); CALCIUM 8.5 mg/dL (8.5-10.1); CHLORIDE 110 mmol/L (98-107); CREATININE 1.53 mg/dL (0.7-1.3)
[2020-02-02 00:41] LABS: ANION GAP 8 mmol/L (5-15); CALCIUM 8.7 mg/dL (8.5-10.1); CHLORIDE 113 mmol/L (98-107); CREATININE 1.49 mg/dL (0.7-1.3)
[2020-02-02 04:00] VITALS: BP 122/68
[2020-02-02 04:27] LABS: CALCIUM 8.8 mg/dL (8.5-10.1); CREATININE 1.48 mg/dL (0.7-1.3)
[2020-02-02 04:38] LABS: ANION GAP 6 mmol/L (5-15); CHLORIDE 115 mmol/L (98-107)
[2020-02-02] MEDS: PANTOPRAZOLE 40 MG IV IVPush SCH (05:15)
[2020-02-02] MEDS: SODIUM CHLORIDE 0.9% 1,000 ML IV SCH ×2 (08:10→18:54)
[2020-02-02] MEDS: METOCLOPRAMIDE 5 MG/ML, 2ML IVPush SCH ×3 (08:10→20:51)
[2020-02-02] MEDS: INSULIN LISPRO 100 UNITS/ML, PEN SQ-INSULIN SCH ×4 (08:14→20:54)
[2020-02-02] MEDS: INSULIN GLARGINE 100 UNITS/ML, PEN SQ-INSULIN SCH ×2 (08:15→20:52)
[2020-02-02] MEDS ORDERED: INSULIN GLARGINE 100 UNITS/ML, PEN SQ-INSULIN SCH (09:00)
[2020-02-02] MEDS ORDERED: PANTOPRAZOLE 40 MG IV IVPush SCH (09:00)
[2020-02-02 10:40] VITALS: BP 110/71
[2020-02-02 14:35] VITALS: BP 103/61
[2020-02-02] MEDS: ENOXAPARIN 40 MG/0.4 ML SQ SCH (16:32)
[2020-02-02 19:26] VITALS: BP 103/66
[2020-02-03] MEDS: SODIUM CHLORIDE 0.9% 1,000 ML IV SCH ×3 (01:28→23:59)
[2020-02-03 01:42] VITALS: BP 132/80
[2020-02-03] MEDS: METOCLOPRAMIDE 5 MG/ML, 2ML IVPush SCH ×4 (02:03→20:28)
[2020-02-03 05:21] LABS: BASOPHILS # (AUTO) 0.03 x10^3/uL (0-0.1); BASOPHILS % (AUTO) 0 % (0-1); EOSINOPHILS % (AUTO) 0 % (1-7); LYMPHOCYTES # (AUTO) 2.22 x10^3/uL (1-3.4); LYMPHOCYTES % (AUTO) 19 % (22-44); MD NO; MEAN CORPUSCULAR HEMOGLOBIN 29.8 pg (27.5-34.5); MEAN CORPUSCULAR HGB CONC 33.8 g/dL (33.2-36.2); MEAN CORPUSCULAR VOLUME 88.1 fL (81-97); MONOCYTES # (AUTO) 0.68 x10^3/uL (0.2-0.8); MONOCYTES % (AUTO) 6 % (2-9); NEUTROPHILS # (AUTO) 8.67 x10^3/uL (1.8-6.8); NEUTROPHILS % (AUTO) 75 % (42-75); PLATELET COUNT 221 x10^3/uL (130-400); RED BLOOD COUNT 4.33 x10^6/uL (4.38-5.82); RED CELL DISTRIBUTION WIDTH 13.3 % (9.4-14.8)
[2020-02-03 05:30] LABS: ANION GAP 6 mmol/L (5-15); CALCIUM 8.5 mg/dL (8.5-10.1); CHLORIDE 107 mmol/L (98-107)
[2020-02-03 05:33] LABS: CREATININE 1.04 mg/dL (0.7-1.3)
[2020-02-03 08:05] VITALS: BP 129/76
[2020-02-03] MEDS: INSULIN LISPRO 100 UNITS/ML, PEN SQ-INSULIN SCH ×4 (08:08→21:00)
[2020-02-03] MEDS: INSULIN GLARGINE 100 UNITS/ML, PEN SQ-INSULIN SCH ×2 (08:09→20:28)
[2020-02-03] MEDS: ENOXAPARIN 40 MG/0.4 ML SQ SCH (14:27)
[2020-02-03 14:47] VITALS: BP 108/70
[2020-02-03 18:43] VITALS: BP 115/66
[2020-02-04 01:46] VITALS: BP 124/80
[2020-02-04] MEDS: METOCLOPRAMIDE 5 MG/ML, 2ML IVPush SCH ×4 (01:59→20:30)
[2020-02-04 05:34] LABS: BASOPHILS # (AUTO) 0.02 x10^3/uL (0-0.1); BASOPHILS % (AUTO) 0 % (0-1); EOSINOPHILS # (AUTO) 0.02 x10^3/uL (0-0.4); EOSINOPHILS % (AUTO) 0 % (1-7); LYMPHOCYTES # (AUTO) 2.43 x10^3/uL (1-3.4); LYMPHOCYTES % (AUTO) 39 % (22-44); MD NO; MEAN CORPUSCULAR HEMOGLOBIN 29.4 pg (27.5-34.5); MEAN CORPUSCULAR HGB CONC 33.4 g/dL (33.2-36.2); MEAN CORPUSCULAR VOLUME 88.1 fL (81-97); MEAN PLATELET VOLUME 8.1 fL (7.4-10.4); MONOCYTES # (AUTO) 0.41 x10^3/uL (0.2-0.8); MONOCYTES % (AUTO) 7 % (2-9); NEUTROPHILS # (AUTO) 3.41 x10^3/uL (1.8-6.8); NEUTROPHILS % (AUTO) 54 % (42-75); PLATELET COUNT 208 x10^3/uL (130-400); RED BLOOD COUNT 4.49 x10^6/uL (4.38-5.82); RED CELL DISTRIBUTION WIDTH 13.3 % (9.4-14.8)
[2020-02-04 05:42] LABS: ANION GAP 6 mmol/L (5-15); CALCIUM 8.4 mg/dL (8.5-10.1); CHLORIDE 104 mmol/L (98-107)
[2020-02-04 05:44] LABS: CREATININE 0.75 mg/dL (0.7-1.3)
[2020-02-04] MEDS: INSULIN LISPRO 100 UNITS/ML, PEN SQ-INSULIN SCH ×5 (07:57→20:30)
[2020-02-04] MEDS: INSULIN GLARGINE 100 UNITS/ML, PEN SQ-INSULIN SCH ×2 (07:58→20:30)
[2020-02-04 09:24] VITALS: BP 111/70
[2020-02-04] MEDS: SODIUM CHLORIDE 0.9% 1,000 ML IV SCH (10:47)
[2020-02-04] MEDS: PANTOPRAZOLE 20MG TABLET PO SCH (12:30)
[2020-02-04 13:01] VITALS: BP 103/51
[2020-02-04] MEDS: ENOXAPARIN 40 MG/0.4 ML SQ SCH (15:02)
[2020-02-04 20:02] VITALS: BP 117/79
[2020-02-05] MEDS: PANTOPRAZOLE 20MG TABLET PO SCH (00:17)
[2020-02-05 01:30] VITALS: BP 119/74
[2020-02-05] MEDS: METOCLOPRAMIDE 5 MG/ML, 2ML IVPush SCH ×2 (01:48→07:44)
[2020-02-05 06:03] LABS: MEAN CORPUSCULAR HEMOGLOBIN 29.4 pg (27.5-34.5); MEAN CORPUSCULAR HGB CONC 33.3 g/dL (33.2-36.2); MEAN CORPUSCULAR VOLUME 88.3 fL (81-97); MEAN PLATELET VOLUME 7.7 fL (7.4-10.4); PLATELET COUNT 193 x10^3/uL (130-400); RED BLOOD COUNT 4.55 x10^6/uL (4.38-5.82); RED CELL DISTRIBUTION WIDTH 13.2 % (9.4-14.8)
[2020-02-05 06:17] LABS: ANION GAP 5 mmol/L (5-15); CALCIUM 8.5 mg/dL (8.5-10.1); CHLORIDE 106 mmol/L (98-107); CREATININE 0.67 mg/dL (0.7-1.3)
[2020-02-05 06:28] LABS: BASOPHILS # (AUTO) 0.02 x10^3/uL (0-0.1); BASOPHILS % (AUTO) 0 % (0-1); EOSINOPHILS # (AUTO) 0.05 x10^3/uL (0-0.4); EOSINOPHILS % (AUTO) 1 % (1-7); LYMPHOCYTES # (AUTO) 2.17 x10^3/uL (1-3.4); LYMPHOCYTES % (AUTO) 55 % (22-44); MD SCAN; MONOCYTES # (AUTO) 0.25 x10^3/uL (0.2-0.8); MONOCYTES % (AUTO) 7 % (2-9); NEUTROPHILS # (AUTO) 1.44 x10^3/uL (1.8-6.8); NEUTROPHILS % (AUTO) 37 % (42-75)
[2020-02-05] MEDS: INSULIN LISPRO 100 UNITS/ML, PEN SQ-INSULIN SCH ×2 (07:00→12:29)
[2020-02-05 07:33] VITALS: BP 128/83
[2020-02-05] MEDS: INSULIN GLARGINE 100 UNITS/ML, PEN SQ-INSULIN SCH (08:20)
[2020-02-05] MEDS ORDERED: PANT20TA3 PO (11:01)
[2020-02-05] MEDS ORDERED: ACET325T26 PO (11:01)
[2020-02-05] MEDS ORDERED: FLU VACC QS2019-20 36MOS UP/PF 0.5 ML IM-VACC ONE (12:00)
== END 2020-02-05 13:35 | disposition home or self-care (01) | DRG 377 ==
LOC: ED 13:31 → EDIP 14:39 → CCU 15:47 → 3N 02-02 09:46
PROVIDERS: ADMIT Internal Medicine; ATTEND Hospitalist
DX: K92.0 Hematemesis (principal); E10.10 Type 1 diabetes mellitus with ketoacidosis without coma; N17.0 Acute kidney failure with tubular necrosis; E87.1 Hypo-osmolality and hyponatremia; E87.5 Hyperkalemia; G40.909 Epilepsy, unspecified, not intractable, without status epilepticus; E87.6 Hypokalemia; E83.39 Other disorders of phosphorus metabolism; D72.828 Other elevated white blood cell count; L98.499 Non-pressure chronic ulcer of skin of other sites with unspecified severity; Z91.14 Patient's other noncompliance with medication regimen
CPT/HCPCS: 36415; 71045; 76700; 80048; 80053; 81003; 82010; 82803; 82962; 83036; 83690; 83735; 84100; 85025; 87081; 90686; 93005; 96374; 96375; G0378; J1650; J1815; J2405; J2550; C9113; J2765; J3480; J7030

== ENCOUNTER 2020-02-08 10:23 | Inpatient (IN) | payer MEDICAID, OTHER ==
[~2020-02-08] VITALS: Ht 180.3 cm; Wt 88.7 kg
[~2020-02-08 10:23] MED LIST changes: +ACET325T26 PO; +PANT20TA3 PO
[2020-02-08] MEDS ORDERED: SODIUM CHLORIDE 0.9% 1,000 ML IV ONE (10:28)
[2020-02-08] MEDS ORDERED: SODIUM CHLORIDE 0.9% 1,000ML IVBOLUS ONE ×3 (10:30→13:00)
[2020-02-08] MEDS ORDERED: SODIUM CHLORIDE FLUSH 10ML SYR IVF ONE (10:30)
[2020-02-08] MEDS ORDERED: ONDANSETRON 2MG/ML, 2ML IVPush ONE (10:30)
--- NOTE | 2020-02-08 10:40 | NUR ---
Code Cardiac called via code phone @[address] Michael All laborer rags members in house per code phone @1033 Cards Called @1035 Dr. Veronica came down from upstairs within 2 min
[2020-02-08] MEDS ORDERED: LIDOCAINE 1%, 20ML ONE (10:41)
[2020-02-08] MEDS ORDERED: BIVALIRUDIN 250 MG ONE (10:41)
[2020-02-08] MEDS ORDERED: VERAPAMIL 2.5 MG/ML, 2ML ONE (10:41)
[2020-02-08] MEDS ORDERED: HEPARIN 1,000 UNITS/ML, 10ML ONE (10:41)
[2020-02-08] MEDS ORDERED: MIDAZOLAM 1 MG/ML, 5ML ONE (10:41)
[2020-02-08] MEDS ORDERED: FENTANYL PF 100 MCG/2ML ONE (10:41)
--- NOTE | 2020-02-08 10:50 | NUR ---
Code Cardiac called @1034 per DEVAN Yap
[2020-02-08] MEDS ORDERED: SODIUM CHLORIDE FLUSH 10ML SYR IVF PRN (11:00)
[2020-02-08] MEDS ORDERED: PLEASE ENTER HEIGHT AND WEIGHT MC SCH (11:00)
[2020-02-08 11:03] LABS: MEAN CORPUSCULAR HEMOGLOBIN 29.7 pg (27.5-34.5); MEAN CORPUSCULAR HGB CONC 31.2 g/dL (33.2-36.2); MEAN CORPUSCULAR VOLUME 95.1 fL (81-97); MEAN PLATELET VOLUME 10.1 fL (7.4-10.4); PLATELET COUNT 307 x10^3/uL (130-400); RED BLOOD COUNT 4.29 x10^6/uL (4.38-5.82); RED CELL DISTRIBUTION WIDTH 14.3 % (9.4-14.8)
[2020-02-08 11:12] LABS: INTERNATIONAL NORMALIZED RATIO 1.05 (0.93-1.1); PROTHROMBIN TIME 11.1 Seconds (9.6-11.5)
[2020-02-08 11:14] LABS: ALANINE AMINOTRANSFERASE 34 U/L (12-78); ALBUMIN 3.3 g/dL (3.4-5.0); ANION GAP 37 mmol/L (5-15); CALCIUM 7.8 mg/dL (8.5-10.1); CHLORIDE 81 mmol/L (98-107); CREATININE 4.15 mg/dL (0.7-1.3)
--- NOTE | 2020-02-08 11:16 | NUR ---
CHINYERE SAINI FROM [facility]ISON d/t high blood sugar coffee ground emesis non compliant diabetic tx. per prison report pt's ekg was WDL vss was stable but per remsa arrival , pt's bp 81/40 pt's hr was tachy up to 130's . pt c/o pain at abdomen and chest ekg was done dr león called code cardiac. iv was started given 2 nd liter ns bolus bp is still low up to 74/41 dr inman at bedside laborer ship[facility] was ready pt was transferred to [facility] sterling ( critical care sup) at bed side pt was transferred to [facility] lab at 1054
[2020-02-08 11:19] LABS: ALKALINE PHOSPHATASE 75 U/L (45-117); BILIRUBIN,TOTAL 0.6 mg/dL (0.2-1.0); TOTAL PROTEIN 6.4 g/dL (6.4-8.2); TROPONIN I 0.027 ng/mL (0.000-0.045)
[2020-02-08] MEDS ORDERED: SODIUM CHLORIDE 0.9% 1,000 ML IV SCH (11:22)
[2020-02-08 11:27] LABS: MD YES
[2020-02-08] MEDS ORDERED: PANTOPRAZOLE 80 MG in SODIUM CHLORIDE 0.9% 50 ML IVPB ONE (11:29)
[2020-02-08 11:31] LABS: BAND#(MANUAL) 0.55 x10^3/uL; BANDS%(MANUAL) 2 % (0-7); LYMPH#(MANUAL) 2.48 x10^3/uL (1-3.4); LYMPHS% (MANUAL) 9 % (22-44); MONOS#(MANUAL) 2.48 x10^3/uL (0.3-2.7); MONOS% (MANUAL) 9 % (2-9); SEGS% (MANUAL) 80 % (42-75)
[2020-02-08 11:32] LABS: <PLATELET ESTIMATE> ADEQUATE; <PLT MORPHOLOGY> NORMAL PLT MORPH; POLYCHROMASIA 1+
[2020-02-08 11:32] LABS: PH, VENOUS 7.073 pH (7.320-7.420)
--- NOTE | 2020-02-08 11:34 | NUR ---
critical lab result reported to dr lenó and critical care sup ( ph 7.1 bicarb 6 glucose 1208 ph 7.07 PCO2 165 bicarb 4.6
[2020-02-08 11:35] LABS: GASTRIC OCCULT BLD POSITIVE (NEGATIVE); GASTRIC PH 2 (1-7)
[2020-02-08] MEDS ORDERED: PHENYLEPHRINE 10 MG/ML ONE (11:40)
[2020-02-08] MEDS: PANTOPRAZOLE 80 MG in SODIUM CHLORIDE 0.9% 100 ML IV SCH ×2 (12:00→12:29)
--- NOTE | 2020-02-08 12:08 | NUR ---
correct critical lab value of PCO2 16.2 per lab
[2020-02-08] MEDS ORDERED: INSU100I13 SQ (12:17)
[2020-02-08] MEDS ORDERED: GABA300C10 PO (12:17)
[2020-02-08] MEDS ORDERED: CEPH-368 PO (12:17)
[2020-02-08] MEDS ORDERED: MECO0.5P PO (12:18)
[2020-02-08] MEDS ORDERED: LEVE500T8 PO (12:18)
[2020-02-08] MEDS ORDERED: PANT40TA5 PO (12:18)
[2020-02-08] MEDS ORDERED: INSU100C5 SQ-INSULIN (12:18)
[2020-02-08] MEDS ORDERED: SULF1TAB24 PO (12:18)
--- NOTE | 2020-02-08 12:20 | NUR ---
home med rec was all updated per ferrara document
[2020-02-08] MEDS: REGULAR INSULIN 100 UNITS in SODIUM CHLORIDE 0.9% 99 ML IV PRN ×2 (12:30→20:51)
[2020-02-08 12:31] LABS: ACETONE, SERUM Large (80mg/dL) (Negative)
[2020-02-08 12:36] LABS: MICROSCOPIC NOT IND
[2020-02-08 12:38] LABS: CULTURE INDICATED? NO
[2020-02-08] MEDS: SODIUM CHLORIDE 0.9% 1,000 ML IV SCH ×4 (12:52→23:41)
[2020-02-08] MEDS: D5%-0.45NACL+KCL 20MEQ 1,000 ML IV SCH ×2 (12:52→20:53)
[2020-02-08] MEDS ORDERED: DOCUSATE 100 MG CAPSULE PO PRN (13:00)
[2020-02-08] MEDS ORDERED: LACTULOSE 10 GM/15 ML UDC PO PRN (13:00)
[2020-02-08] MEDS: HEPARIN 5,000 UNITS/ML, 1ML SQ SCH ×2 (13:34→20:36)
[2020-02-08] MEDS: ONDANSETRON 2MG/ML, 2ML IV PRN (17:37)
[2020-02-08] MEDS ORDERED: FAMOTIDINE 20 MG TABLET PO SCH (21:00)
[2020-02-09 00:22] LABS: ANION GAP 12 mmol/L (5-15); CALCIUM 7.6 mg/dL (8.5-10.1); CHLORIDE 107 mmol/L (98-107); CREATININE 1.53 mg/dL (0.7-1.3)
[2020-02-09 04:09] VITALS: BP 120/70
[2020-02-09] MEDS: HEPARIN 5,000 UNITS/ML, 1ML SQ SCH ×3 (04:50→20:15)
[2020-02-09] MEDS: D5%-0.45NACL+KCL 20MEQ 1,000 ML IV SCH (04:50)
[2020-02-09] MEDS: SODIUM CHLORIDE 0.9% 1,000 ML IV SCH (04:50)
[2020-02-09 04:58] LABS: MEAN CORPUSCULAR HEMOGLOBIN 29.5 pg (27.5-34.5); MEAN CORPUSCULAR HGB CONC 33.5 g/dL (33.2-36.2); MEAN PLATELET VOLUME 8.5 fL (7.4-10.4); PLATELET COUNT 301 x10^3/uL (130-400); RED BLOOD COUNT 4.23 x10^6/uL (4.38-5.82); RED CELL DISTRIBUTION WIDTH 13.6 % (9.4-14.8)
[2020-02-09 05:10] LABS: ANION GAP 14 mmol/L (5-15); CALCIUM 7.9 mg/dL (8.5-10.1); CHLORIDE 107 mmol/L (98-107); CREATININE 1.55 mg/dL (0.7-1.3)
[2020-02-09 05:48] LABS: BASOPHILS # (AUTO) 0.08 x10^3/uL (0-0.1); BASOPHILS % (AUTO) 1 % (0-1); EOSINOPHILS % (AUTO) 0 % (1-7); LYMPHOCYTES # (AUTO) 1.42 x10^3/uL (1-3.4); LYMPHOCYTES % (AUTO) 9 % (22-44); MD SCAN; MONOCYTES # (AUTO) 0.44 x10^3/uL (0.2-0.8); MONOCYTES % (AUTO) 3 % (2-9); NEUTROPHILS # (AUTO) 14.63 x10^3/uL (1.8-6.8); NEUTROPHILS % (AUTO) 88 % (42-75)
[2020-02-09] MEDS: ONDANSETRON 2MG/ML, 2ML IV PRN ×2 (06:39→13:25)
[2020-02-09] MEDS: INSULIN LISPRO 100 UNITS/ML, PEN SQ-INSULIN SCH ×4 (08:03→20:15)
[2020-02-09] MEDS: INSULIN GLARGINE 100 UNITS/ML, PEN SQ-INSULIN SCH ×2 (08:04→20:16)
[2020-02-09] MEDS ORDERED: SODIUM CHLORIDE 0.9% 1,000 ML IV SCH (12:52)
[2020-02-09 13:48] VITALS: BP 113/73
[2020-02-09] MEDS: METOCLOPRAMIDE 5 MG/ML, 2ML IVPush SCH ×2 (16:31→22:15)
[2020-02-09 19:26] VITALS: BP 128/76
[2020-02-10 00:36] VITALS: BP 133/75
[2020-02-10] MEDS: HEPARIN 5,000 UNITS/ML, 1ML SQ SCH ×2 (04:39→12:45)
[2020-02-10] MEDS: METOCLOPRAMIDE 5 MG/ML, 2ML IVPush SCH ×4 (04:39→23:12)
[2020-02-10 05:23] LABS: MEAN CORPUSCULAR HEMOGLOBIN 29.4 pg (27.5-34.5); MEAN CORPUSCULAR HGB CONC 33.6 g/dL (33.2-36.2); MEAN CORPUSCULAR VOLUME 87.2 fL (81-97); MEAN PLATELET VOLUME 8.3 fL (7.4-10.4); PLATELET COUNT 233 x10^3/uL (130-400); RED BLOOD COUNT 4.79 x10^6/uL (4.38-5.82); RED CELL DISTRIBUTION WIDTH 14.1 % (9.4-14.8)
[2020-02-10 05:31] LABS: CALCIUM 8.9 mg/dL (8.5-10.1); CREATININE 1.07 mg/dL (0.7-1.3)
[2020-02-10 05:48] LABS: MD YES
[2020-02-10 05:49] LABS: BAND#(MANUAL) 0.34 x10^3/uL; BANDS%(MANUAL) 3 % (0-7); LYMPH#(MANUAL) 1.36 x10^3/uL (1-3.4); LYMPHS% (MANUAL) 12 % (22-44); MONOS#(MANUAL) 0.45 x10^3/uL (0.3-2.7); MONOS% (MANUAL) 4 % (2-9); SEG#(MANUAL) 9.15 x10^3/uL (1.8-6.8); SEGS% (MANUAL) 81 % (42-75)
[2020-02-10 05:50] LABS: <PLATELET ESTIMATE> ADEQUATE; <PLT MORPHOLOGY> NORMAL PLT MORPH; <RBC MORPHOLOGY> NORMAL
[2020-02-10 06:31] LABS: ANION GAP 6 mmol/L (5-15); CHLORIDE 97 mmol/L (98-107)
[2020-02-10 08:13] VITALS: BP 125/79
[2020-02-10] MEDS: INSULIN GLARGINE 100 UNITS/ML, PEN SQ-INSULIN SCH ×2 (09:23→20:44)
[2020-02-10] MEDS: INSULIN LISPRO 100 UNITS/ML, PEN SQ-INSULIN SCH ×4 (09:23→20:44)
[2020-02-10] MEDS ORDERED: PROMETHAZINE 25 MG/ML, 1ML IM PRN (11:30)
[2020-02-10] MEDS: SODIUM CHLORIDE 0.9% 1,000 ML IV SCH (12:44)
[2020-02-10] MEDS: POTASSIUM CHLORIDE 20 MEQ TAB.ER.PRT PO ONE ×2 (12:45→14:37)
[2020-02-10 14:09] VITALS: BP 124/83
[2020-02-10] MEDS: OMEPRAZOLE 20 MG CAPSULE.DR PO SCH (18:15)
[2020-02-10] MEDS: SUCRALFATE 1 GM/10 ML UDC PO SCH ×2 (18:15→20:43)
[2020-02-10 20:01] VITALS: BP 136/81
[2020-02-10] MEDS: LEVETIRACETAM 500 MG TABLET PO SCH (20:43)
[2020-02-11] MEDS: SODIUM CHLORIDE 0.9% 1,000 ML IV SCH ×2 (00:03→13:39)
[2020-02-11 00:54] VITALS: BP 115/75
[2020-02-11] MEDS: METOCLOPRAMIDE 5 MG/ML, 2ML IVPush SCH ×5 (04:30→21:53)
[2020-02-11] MEDS: OMEPRAZOLE 20 MG CAPSULE.DR PO SCH ×2 (05:14→17:17)
[2020-02-11 05:46] LABS: BASOPHILS # (AUTO) 0.01 x10^3/uL (0-0.1); BASOPHILS % (AUTO) 0 % (0-1); EOSINOPHILS % (AUTO) 0 % (1-7); LYMPHOCYTES % (AUTO) 30 % (22-44); MD NO; MEAN CORPUSCULAR HEMOGLOBIN 29.4 pg (27.5-34.5); MEAN CORPUSCULAR HGB CONC 33.7 g/dL (33.2-36.2); MEAN PLATELET VOLUME 8.6 fL (7.4-10.4); MONOCYTES # (AUTO) 0.68 x10^3/uL (0.2-0.8); MONOCYTES % (AUTO) 10 % (2-9); NEUTROPHILS # (AUTO) 3.93 x10^3/uL (1.8-6.8); NEUTROPHILS % (AUTO) 59 % (42-75); PLATELET COUNT 218 x10^3/uL (130-400); RED BLOOD COUNT 4.76 x10^6/uL (4.38-5.82); RED CELL DISTRIBUTION WIDTH 13.5 % (9.4-14.8)
[2020-02-11 05:53] LABS: ANION GAP 8 mmol/L (5-15); CALCIUM 8.6 mg/dL (8.5-10.1); CHLORIDE 100 mmol/L (98-107)
[2020-02-11 05:56] LABS: ALANINE AMINOTRANSFERASE 25 U/L (12-78); ALKALINE PHOSPHATASE 75 U/L (45-117); CREATININE 0.99 mg/dL (0.7-1.3); TOTAL PROTEIN 6.6 g/dL (6.4-8.2)
[2020-02-11 07:15] VITALS: BP 127/78
[2020-02-11] MEDS: POTASSIUM CHLORIDE 20 MEQ TAB.ER.PRT PO SCH ×2 (08:00→16:46)
[2020-02-11] MEDS: SUCRALFATE 1 GM/10 ML UDC PO SCH ×5 (08:05→21:11)
[2020-02-11] MEDS: LEVETIRACETAM 500 MG TABLET PO SCH ×2 (08:05→21:08)
[2020-02-11] MEDS: INSULIN GLARGINE 100 UNITS/ML, PEN SQ-INSULIN SCH ×2 (08:06→21:09)
[2020-02-11] MEDS: INSULIN LISPRO 100 UNITS/ML, PEN SQ-INSULIN SCH ×4 (08:06→20:05)
[2020-02-11] MEDS ORDERED: DEXTROSE 4 GM TAB.CHEW PO PRN (12:30)
[2020-02-11] MEDS ORDERED: DEXTROSE 50%, 50ML SYRINGE IVPush PRN (12:30)
[2020-02-11] MEDS ORDERED: GLUCAGON 1 MG IM PRN (12:30)
[2020-02-11 13:28] VITALS: BP 125/87
[2020-02-11] MEDS: D5%-0.9% NACL+KCL 20MEQ 1,000 ML IV SCH (18:14)
[2020-02-11 18:54] VITALS: BP 113/75
[2020-02-11] MEDS: SODIUM CHLORIDE FLUSH 10ML SYR IVF SCH (21:09)
[2020-02-12 01:25] VITALS: BP 123/85
[2020-02-12] MEDS: D5%-0.9% NACL+KCL 20MEQ 1,000 ML IV SCH ×2 (03:50→16:05)
[2020-02-12] MEDS: METOCLOPRAMIDE 5 MG/ML, 2ML IVPush SCH ×4 (03:50→22:31)
[2020-02-12] MEDS: OMEPRAZOLE 20 MG CAPSULE.DR PO SCH (05:07)
[2020-02-12 05:46] LABS: BASOPHILS # (AUTO) 0.04 x10^3/uL (0-0.1); BASOPHILS % (AUTO) 1 % (0-1); EOSINOPHILS # (AUTO) 0.03 x10^3/uL (0-0.4); EOSINOPHILS % (AUTO) 0 % (1-7); LYMPHOCYTES % (AUTO) 30 % (22-44); MD NO; MEAN CORPUSCULAR HGB CONC 33.1 g/dL (33.2-36.2); MEAN CORPUSCULAR VOLUME 87.8 fL (81-97); MEAN PLATELET VOLUME 8.6 fL (7.4-10.4); MONOCYTES # (AUTO) 0.65 x10^3/uL (0.2-0.8); MONOCYTES % (AUTO) 10 % (2-9); NEUTROPHILS # (AUTO) 3.76 x10^3/uL (1.8-6.8); NEUTROPHILS % (AUTO) 59 % (42-75); PLATELET COUNT 239 x10^3/uL (130-400); RED BLOOD COUNT 4.92 x10^6/uL (4.38-5.82)
[2020-02-12 05:53] LABS: ANION GAP 5 mmol/L (5-15); CALCIUM 8.4 mg/dL (8.5-10.1); CHLORIDE 104 mmol/L (98-107)
[2020-02-12 05:57] LABS: ALANINE AMINOTRANSFERASE 22 U/L (12-78); ALKALINE PHOSPHATASE 72 U/L (45-117); TOTAL PROTEIN 6.4 g/dL (6.4-8.2)
[2020-02-12] MEDS: INSULIN LISPRO 100 UNITS/ML, PEN SQ-INSULIN SCH ×4 (07:00→22:32)
[2020-02-12] MEDS: SUCRALFATE 1 GM/10 ML UDC PO SCH ×3 (07:00→16:05)
[2020-02-12 07:24] VITALS: BP 124/82
[2020-02-12] MEDS: POTASSIUM CHLORIDE 20 MEQ TAB.ER.PRT PO SCH ×2 (08:00→16:07)
[2020-02-12] MEDS: INSULIN GLARGINE 100 UNITS/ML, PEN SQ-INSULIN SCH ×2 (08:06→22:32)
[2020-02-12] MEDS: LEVETIRACETAM 500 MG TABLET PO SCH ×2 (09:00→22:31)
[2020-02-12] MEDS ORDERED: MIDAZOLAM 1 MG/ML, 2ML ONE (10:03)
[2020-02-12] MEDS ORDERED: FENTANYL PF 100 MCG/2ML ONE ×2 (10:03→10:25)
[2020-02-12] MEDS ORDERED: ONDANSETRON 2MG/ML, 2ML ONE (10:08)
[2020-02-12] MEDS ORDERED: SUCCINYLCHOLINE 20 MG/ML, 10ML ONE (10:08)
[2020-02-12] MEDS ORDERED: DEXAMETHASONE 4 MG/ML, 1ML ONE (10:08)
[2020-02-12] MEDS ORDERED: PROPOFOL 10 MG/ML, 20ML ONE (10:08)
[2020-02-12] MEDS ORDERED: ONDANSETRON 2MG/ML, 2ML IV PRN (10:30)
[2020-02-12] MEDS ORDERED: HYDROmorphone 2 MG/ML, 1ML IVPush PRN (10:30)
[2020-02-12] MEDS ORDERED: OXYcodone 5 MG/5 ML ORAL.SOL UDC PO PRN (10:30)
[2020-02-12] MEDS ORDERED: MEPERIDINE/PF 25MG/ML,1ML IVPush PRN (10:30)
[2020-02-12] MEDS ORDERED: PROMETHAZINE 25 MG/ML, 1ML IV PRN (10:30)
[2020-02-12] MEDS ORDERED: EPHEDRINE 50 MG/ML, 1ML IVPush PRN (10:30)
[2020-02-12] MEDS ORDERED: ACETAMINOPHEN 325 MG TABLET PO PRN (10:30)
[2020-02-12] MEDS ORDERED: LABETALOL 5MG/ML, 20ML IV PRN (10:30)
[2020-02-12] MEDS ORDERED: FENTANYL PF 100 MCG/2ML IV PRN (10:30)
[2020-02-12] MEDS ORDERED: hydrALAzine 20 MG/ML, 1ML IV PRN (10:30)
[2020-02-12] MEDS: SODIUM CHLORIDE FLUSH 10ML SYR IVF SCH ×2 (10:35→21:00)
[2020-02-12] MEDS ORDERED: FLUCONAZOLE 200 MG/100 ML 100 ML IV ONE (11:30)
[2020-02-12 11:55] VITALS: BP 116/76
[2020-02-12] MEDS: PANTOPRAZOLE 40 MG IV IVPush SCH (13:02)
[2020-02-12 13:11] VITALS: BP 105/74
[2020-02-12 13:38] LABS: INTERNATIONAL NORMALIZED RATIO 1.01 (0.93-1.1); PROTHROMBIN TIME 10.7 Seconds (9.6-11.5)
[2020-02-12 19:22] VITALS: BP 93/62
[2020-02-13 00:27] VITALS: BP 100/68
[2020-02-13] MEDS: PANTOPRAZOLE 40 MG IV IVPush SCH ×2 (01:24→13:08)
[2020-02-13] MEDS ORDERED: D5%-0.9% NACL+KCL 20MEQ 1,000 ML IV SCH ×2 (02:00→17:30)
[2020-02-13] MEDS: METOCLOPRAMIDE 5 MG/ML, 2ML IVPush SCH ×4 (04:56→22:45)
[2020-02-13 05:37] LABS: BASOPHILS # (AUTO) 0.03 x10^3/uL (0-0.1); BASOPHILS % (AUTO) 0 % (0-1); EOSINOPHILS % (AUTO) 0 % (1-7); LYMPHOCYTES # (AUTO) 2.36 x10^3/uL (1-3.4); LYMPHOCYTES % (AUTO) 25 % (22-44); MD NO; MEAN CORPUSCULAR HEMOGLOBIN 29.2 pg (27.5-34.5); MEAN CORPUSCULAR HGB CONC 33.3 g/dL (33.2-36.2); MEAN CORPUSCULAR VOLUME 87.5 fL (81-97); MEAN PLATELET VOLUME 8.9 fL (7.4-10.4); MONOCYTES # (AUTO) 0.81 x10^3/uL (0.2-0.8); MONOCYTES % (AUTO) 9 % (2-9); NEUTROPHILS % (AUTO) 66 % (42-75); PLATELET COUNT 240 x10^3/uL (130-400); RED BLOOD COUNT 4.54 x10^6/uL (4.38-5.82); RED CELL DISTRIBUTION WIDTH 13.2 % (9.4-14.8)
[2020-02-13 05:48] LABS: ANION GAP 6 mmol/L (5-15); CALCIUM 8.3 mg/dL (8.5-10.1); CHLORIDE 104 mmol/L (98-107); CREATININE 0.83 mg/dL (0.7-1.3)
[2020-02-13] MEDS: SUCRALFATE 1 GM/10 ML UDC PO SCH ×3 (06:24→16:16)
[2020-02-13 06:53] VITALS: BP 98/60
[2020-02-13] MEDS: POTASSIUM CHLORIDE 20 MEQ TAB.ER.PRT PO SCH ×2 (08:00→16:17)
[2020-02-13] MEDS: LEVETIRACETAM 500 MG TABLET PO SCH ×2 (08:13→20:55)
[2020-02-13] MEDS: SODIUM CHLORIDE FLUSH 10ML SYR IVF SCH ×2 (08:13→20:55)
[2020-02-13] MEDS: INSULIN LISPRO 100 UNITS/ML, PEN SQ-INSULIN SCH ×4 (08:14→20:56)
[2020-02-13] MEDS: INSULIN GLARGINE 100 UNITS/ML, PEN SQ-INSULIN SCH ×2 (08:15→20:55)
[2020-02-13] MEDS ORDERED: FLUCONAZOLE 200 MG/100 ML 50 ML IV SCH (11:00)
[2020-02-13] MEDS: FLUCONAZOLE IV SCH (11:16)
[2020-02-13] MEDS: NS + 20MEQ KCL 1,000 ML IV SCH ×2 (12:32→20:55)
[2020-02-13 14:06] VITALS: BP 103/71
[2020-02-13 19:54] VITALS: BP 114/76
[2020-02-13] MEDS: ACETAMINOPHEN 325 MG TABLET PO PRN (20:55)
[2020-02-14 01:02] VITALS: BP 118/80
[2020-02-14] MEDS: PANTOPRAZOLE 40 MG IV IVPush SCH ×2 (01:29→13:08)
[2020-02-14] MEDS: NS + 20MEQ KCL 1,000 ML IV SCH ×2 (03:45→16:33)
[2020-02-14] MEDS: METOCLOPRAMIDE 5 MG/ML, 2ML IVPush SCH ×4 (03:51→22:50)
[2020-02-14 05:26] LABS: BASOPHILS # (AUTO) 0.02 x10^3/uL (0-0.1); BASOPHILS % (AUTO) 0 % (0-1); EOSINOPHILS # (AUTO) 0.02 x10^3/uL (0-0.4); EOSINOPHILS % (AUTO) 0 % (1-7); LYMPHOCYTES # (AUTO) 1.96 x10^3/uL (1-3.4); LYMPHOCYTES % (AUTO) 28 % (22-44); MD NO; MEAN CORPUSCULAR VOLUME 87.8 fL (81-97); MEAN PLATELET VOLUME 8.3 fL (7.4-10.4); MONOCYTES # (AUTO) 0.74 x10^3/uL (0.2-0.8); MONOCYTES % (AUTO) 11 % (2-9); NEUTROPHILS # (AUTO) 4.16 x10^3/uL (1.8-6.8); NEUTROPHILS % (AUTO) 60 % (42-75); PLATELET COUNT 295 x10^3/uL (130-400)
[2020-02-14 05:35] LABS: ANION GAP 5 mmol/L (5-15); CALCIUM 8.3 mg/dL (8.5-10.1); CHLORIDE 105 mmol/L (98-107); CREATININE 0.68 mg/dL (0.7-1.3)
[2020-02-14] MEDS: SUCRALFATE 1 GM/10 ML UDC PO SCH ×3 (06:01→16:33)
[2020-02-14] MEDS: INSULIN LISPRO 100 UNITS/ML, PEN SQ-INSULIN SCH ×4 (07:00→21:00)
[2020-02-14] MEDS: INSULIN GLARGINE 100 UNITS/ML, PEN SQ-INSULIN SCH ×2 (09:00→21:28)
[2020-02-14] MEDS: POTASSIUM CHLORIDE 20 MEQ TAB.ER.PRT PO SCH ×2 (10:51→11:57)
[2020-02-14] MEDS: LEVETIRACETAM 500 MG TABLET PO SCH ×2 (10:51→21:20)
[2020-02-14] MEDS: SODIUM CHLORIDE FLUSH 10ML SYR IVF SCH ×2 (10:52→21:21)
[2020-02-14 11:00] VITALS: BP 116/77
[2020-02-14] MEDS: FLUCONAZOLE IV SCH (13:08)
[2020-02-14] MEDS: ACETAMINOPHEN 325 MG TABLET PO PRN (16:33)
[2020-02-14 16:52] VITALS: BP 113/79
[2020-02-14] MEDS ORDERED: ACETAMINOPHEN 650 MG/20.3 ML UDC ONE (21:11)
[2020-02-14 21:30] VITALS: BP 118/69
[2020-02-15] MEDS: NS + 20MEQ KCL 1,000 ML IV SCH ×2 (00:47→10:31)
[2020-02-15] MEDS: PANTOPRAZOLE 40 MG IV IVPush SCH (00:47)
[2020-02-15 01:04] VITALS: BP 118/29
[2020-02-15] MEDS: METOCLOPRAMIDE 5 MG/ML, 2ML IVPush SCH ×4 (04:21→22:46)
[2020-02-15 04:56] LABS: BASOPHILS # (AUTO) 0.03 x10^3/uL (0-0.1); BASOPHILS % (AUTO) 1 % (0-1); EOSINOPHILS # (AUTO) 0.07 x10^3/uL (0-0.4); EOSINOPHILS % (AUTO) 1 % (1-7); LYMPHOCYTES # (AUTO) 2.07 x10^3/uL (1-3.4); LYMPHOCYTES % (AUTO) 28 % (22-44); MD NO; MEAN CORPUSCULAR HGB CONC 33.4 g/dL (33.2-36.2); MEAN CORPUSCULAR VOLUME 86.7 fL (81-97); MEAN PLATELET VOLUME 8.1 fL (7.4-10.4); MONOCYTES # (AUTO) 0.91 x10^3/uL (0.2-0.8); MONOCYTES % (AUTO) 12 % (2-9); NEUTROPHILS # (AUTO) 4.36 x10^3/uL (1.8-6.8); NEUTROPHILS % (AUTO) 59 % (42-75); PLATELET COUNT 317 x10^3/uL (130-400); RED BLOOD COUNT 4.47 x10^6/uL (4.38-5.82); RED CELL DISTRIBUTION WIDTH 13.1 % (9.4-14.8)
[2020-02-15 05:12] LABS: ALBUMIN 2.8 g/dL (3.4-5.0); ANION GAP 7 mmol/L (5-15); CALCIUM 8.5 mg/dL (8.5-10.1); CHLORIDE 105 mmol/L (98-107)
[2020-02-15 05:15] LABS: ALANINE AMINOTRANSFERASE 19 U/L (12-78); ALKALINE PHOSPHATASE 59 U/L (45-117); BILIRUBIN,TOTAL 0.6 mg/dL (0.2-1.0); TOTAL PROTEIN 6.2 g/dL (6.4-8.2)
[2020-02-15] MEDS: INSULIN LISPRO 100 UNITS/ML, PEN SQ-INSULIN SCH ×4 (07:33→21:53)
[2020-02-15] MEDS: SUCRALFATE 1 GM/10 ML UDC PO SCH ×3 (07:57→16:30)
[2020-02-15] MEDS: LEVETIRACETAM 500 MG TABLET PO SCH ×2 (07:57→20:13)
[2020-02-15] MEDS: POTASSIUM CHLORIDE 20 MEQ TAB.ER.PRT PO ONE ×2 (07:57→08:13)
[2020-02-15 08:00] VITALS: BP 101/81
[2020-02-15] MEDS: POTASSIUM CHLORIDE 20 MEQ TAB.ER.PRT PO SCH ×2 (08:13→16:30)
[2020-02-15] MEDS: SODIUM CHLORIDE FLUSH 10ML SYR IVF SCH ×2 (08:13→20:13)
[2020-02-15] MEDS: INSULIN GLARGINE 100 UNITS/ML, PEN SQ-INSULIN SCH ×2 (10:58→21:53)
[2020-02-15] MEDS: FLUCONAZOLE IV SCH (12:09)
[2020-02-15] MEDS ORDERED: POTASSIUM CHLORIDE 40 MEQ in SODIUM CHLORIDE 0.9% 500 ML IV ONE (15:30)
[2020-02-15 15:44] VITALS: BP 118/82
[2020-02-15] MEDS: PANTOPRAZOLE 40MG TABLET PO SCH (16:30)
[2020-02-15 19:00] VITALS: BP 125/79
[2020-02-15 21:31] LABS: TROPONIN I 0.158 ng/mL (0.000-0.045)
[2020-02-15] MEDS ORDERED: ASPIRIN 325 MG TABLET PO ONE (22:00)
[2020-02-15 23:42] VITALS: BP 108/71
[2020-02-16] MEDS ORDERED: NITROGLYCERIN 0.4 MG BOTTLE (25 TABS) SL PRN
[2020-02-16] MEDS: NS + 20MEQ KCL 1,000 ML IV SCH (02:50)
[2020-02-16 03:50] LABS: TROPONIN I 0.175 ng/mL (0.000-0.045)
[2020-02-16] MEDS: METOCLOPRAMIDE 5 MG/ML, 2ML IVPush SCH ×2 (04:49→10:39)
[2020-02-16] MEDS: PANTOPRAZOLE 40MG TABLET PO SCH (06:23)
[2020-02-16] MEDS: SUCRALFATE 1 GM/10 ML UDC PO SCH ×2 (06:23→10:39)
[2020-02-16 07:25] VITALS: BP 111/74
[2020-02-16] MEDS: POTASSIUM CHLORIDE 20 MEQ TAB.ER.PRT PO SCH ×2 (08:00→08:44)
[2020-02-16] MEDS: LEVETIRACETAM 500 MG TABLET PO SCH (08:43)
[2020-02-16] MEDS: INSULIN LISPRO 100 UNITS/ML, PEN SQ-INSULIN SCH ×2 (08:45→11:24)
[2020-02-16] MEDS: INSULIN GLARGINE 100 UNITS/ML, PEN SQ-INSULIN SCH (08:45)
[2020-02-16] MEDS: SODIUM CHLORIDE FLUSH 10ML SYR IVF SCH (08:46)
[2020-02-16 09:04] LABS: BASOPHILS # (AUTO) 0.03 x10^3/uL (0-0.1); BASOPHILS % (AUTO) 1 % (0-1); EOSINOPHILS # (AUTO) 0.09 x10^3/uL (0-0.4); EOSINOPHILS % (AUTO) 1 % (1-7); LYMPHOCYTES # (AUTO) 1.69 x10^3/uL (1-3.4); LYMPHOCYTES % (AUTO) 24 % (22-44); MD NO; MEAN CORPUSCULAR HGB CONC 32.8 g/dL (33.2-36.2); MEAN CORPUSCULAR VOLUME 88.6 fL (81-97); MEAN PLATELET VOLUME 7.6 fL (7.4-10.4); MONOCYTES # (AUTO) 0.92 x10^3/uL (0.2-0.8); MONOCYTES % (AUTO) 13 % (2-9); NEUTROPHILS # (AUTO) 4.28 x10^3/uL (1.8-6.8); NEUTROPHILS % (AUTO) 61 % (42-75); PLATELET COUNT 367 x10^3/uL (130-400)
[2020-02-16 09:12] LABS: ALBUMIN 2.6 g/dL (3.4-5.0); ANION GAP 5 mmol/L (5-15); CALCIUM 8.3 mg/dL (8.5-10.1); CHLORIDE 101 mmol/L (98-107)
[2020-02-16 09:18] LABS: ALANINE AMINOTRANSFERASE 16 U/L (12-78); ALKALINE PHOSPHATASE 58 U/L (45-117); BILIRUBIN,TOTAL 0.6 mg/dL (0.2-1.0); CREATININE 0.68 mg/dL (0.7-1.3); TROPONIN I 0.143 ng/mL (0.000-0.045)
[2020-02-16] MEDS ORDERED: FLUCONAZOLE 100 MG TABLET PO SCH (13:30)
[2020-02-16] MEDS ORDERED: SUCR1ORA5 PO (13:34)
[2020-02-16] MEDS ORDERED: INSU100I13 SQ-INSULIN (13:34)
[2020-02-16 13:47] VITALS: BP 98/60
[2020-02-16] MEDS ORDERED: FLUCONAZOLE 200 MG TABLET ONE (13:52)
[2020-02-16] MEDS ORDERED: FLUC100T4 PO (15:01)
[2020-02-16] MEDS ORDERED: INSU100C SQ-INSULIN (15:02)
[2020-02-16] MEDS ORDERED: OMEP-110 PO (15:03)
[2020-02-17] MEDS ORDERED: GABA300C10 PO (22:53)
[2020-02-17] MEDS ORDERED: SUCR1TAB PO (22:53)
[2020-02-17] MEDS ORDERED: INSU100C5 SQ-INSULIN (22:53)
[2020-02-17] MEDS ORDERED: INSU100I13 SC (22:53)
[2020-02-17] MEDS ORDERED: PANT40TA5 PO (22:53)
[2020-02-17] MEDS ORDERED: MECO0.5P PO (22:53)
[2020-02-17] MEDS ORDERED: LEVE500T22 PO (22:53)
[2020-02-17] MEDS ORDERED: ACET-1770 PO (22:53)
[2020-02-17] MEDS ORDERED: FLUC100T4 PO (22:53)
== END 2020-02-16 15:37 | disposition home or self-care (01) | DRG 280 ==
LOC: ED 11:07 → EDIP 11:17 → CCU 11:29 → 3N 02-09 09:55 → 3WST 02-14 08:11 → 3N 02-15 17:50 → 5SO 02-15 23:25
PROVIDERS: ADMIT Internal Medicine; ATTEND Family Medicine
PROC: 4A023N7 Measurement of Cardiac Sampling and Pressure, Left Heart, Percutaneous Approach (ICD-10-PCS; 2020-02-08)
PROC: B215YZZ Fluoroscopy of Left Heart using Other Contrast (ICD-10-PCS; 2020-02-08)
PROC: B211YZZ Fluoroscopy of Multiple Coronary Arteries using Other Contrast (ICD-10-PCS; 2020-02-08)
PROC: 02HV33Z Insertion of Infusion Device into Superior Vena Cava, Percutaneous Approach (ICD-10-PCS; 2020-02-08)
PROC: B548ZZA Ultrasonography of Superior Vena Cava, Guidance (ICD-10-PCS; 2020-02-08)
PROC: 0DB78ZX Excision of Stomach, Pylorus, Via Natural or Artificial Opening Endoscopic, Diagnostic (ICD-10-PCS; principal; 2020-02-12 10:00)
DX: I21.09 ST elevation (STEMI) myocardial infarction involving other coronary artery of anterior wall (principal); E10.10 Type 1 diabetes mellitus with ketoacidosis without coma; N17.0 Acute kidney failure with tubular necrosis; K85.90 Acute pancreatitis without necrosis or infection, unspecified; R57.1 Hypovolemic shock; K29.71 Gastritis, unspecified, with bleeding; E87.1 Hypo-osmolality and hyponatremia; R65.10 Systemic inflammatory response syndrome (SIRS) of non-infectious origin without acute organ dysfunction; B37.81 Candidal esophagitis; E87.5 Hyperkalemia; D72.828 Other elevated white blood cell count; E83.39 Other disorders of phosphorus metabolism; G40.909 Epilepsy, unspecified, not intractable, without status epilepticus; I10 Essential (primary) hypertension; K21.0 Gastro-esophageal reflux disease with esophagitis; Z20.828 Contact with and (suspected) exposure to other viral communicable diseases; D64.9 Anemia, unspecified; Z88.0 Allergy status to penicillin; Z79.4 Long term (current) use of insulin; Z91.19 Patient's noncompliance with other medical treatment and regimen; Z79.899 Other long term (current) drug therapy
CPT/HCPCS: 36415; 74018; 77001; 84145; 93458; 99285; J3490; 36556; 71045; 76937; 80047; 80048; 80053; 81003; 82010; 82271; 82803; 82962; 83690; 83735; 84100; 84484; 85025; 85610; 85730; 86705; 86706; 86850; 86900; 87040; 87081; 87340; 88305; 90935; 93005; 93306; 99156; C1769; C1894; G0378; J0583; J1100; J1644; J2250; J2405; J2550; J2704; J3010; J3480; C1751; C1887; C9113; J0330; J1450; J1642; J1815; J2370; J2765; J7030; J7040; Q9967

== ENCOUNTER 2020-02-17 20:31 | Inpatient (IN) | payer MEDICAID, OTHER ==
[~2020-02-17] VITALS: Ht 185.4 cm; Wt 80.3 kg
[~2020-02-17 20:31] MED LIST changes: +CEPH-368 PO; +FLUC100T4 PO; +GABA300C10 PO; +INSU100C SQ-INSULIN; +INSU100I13 SQ; +LEVE500T8 PO; +MECO0.5P PO; +OMEP-110 PO; +PANT40TA5 PO; +SUCR1ORA5 PO; +SULF1TAB24 PO
[2020-02-17] MEDS ORDERED: SODIUM CHLORIDE 0.9% 1,000ML IVBOLUS ONE ×2 (21:00→23:00)
[2020-02-17] MEDS ORDERED: PLEASE ENTER ALLERGIES MC SCH (21:00)
--- NOTE | 2020-02-17 21:14 | NUR ---
[facility] right sided chest pain. fsbg upon arrival 301. pt placed on all monitors. ekg done and piv attempted 3 times with no success. another rn at bedside to place piv. md at bedside
[2020-02-17 22:21] LABS: BASOPHILS # (AUTO) 0.05 x10^3/uL (0-0.1); BASOPHILS % (AUTO) 0 % (0-1); EOSINOPHILS # (AUTO) 0.01 x10^3/uL (0-0.4); EOSINOPHILS % (AUTO) 0 % (1-7); LYMPHOCYTES # (AUTO) 1.37 x10^3/uL (1-3.4); LYMPHOCYTES % (AUTO) 10 % (22-44); MD NO; MEAN CORPUSCULAR HEMOGLOBIN 29.4 pg (27.5-34.5); MEAN CORPUSCULAR HGB CONC 33.2 g/dL (33.2-36.2); MEAN CORPUSCULAR VOLUME 88.6 fL (81-97); MEAN PLATELET VOLUME 8.3 fL (7.4-10.4); MONOCYTES # (AUTO) 0.77 x10^3/uL (0.2-0.8); MONOCYTES % (AUTO) 6 % (2-9); NEUTROPHILS # (AUTO) 11.71 x10^3/uL (1.8-6.8); NEUTROPHILS % (AUTO) 84 % (42-75); PLATELET COUNT 475 x10^3/uL (130-400); RED BLOOD COUNT 4.97 x10^6/uL (4.38-5.82); RED CELL DISTRIBUTION WIDTH 13.6 % (9.4-14.8)
[2020-02-17 22:28] LABS: ALANINE AMINOTRANSFERASE 17 U/L (12-78); ALBUMIN 3.1 g/dL (3.4-5.0); ANION GAP 22 mmol/L (5-15); CHLORIDE 97 mmol/L (98-107); CREATININE 1.23 mg/dL (0.7-1.3)
[2020-02-17 22:31] LABS: ALKALINE PHOSPHATASE 75 U/L (45-117); BILIRUBIN,TOTAL 0.7 mg/dL (0.2-1.0); TOTAL PROTEIN 7.1 g/dL (6.4-8.2)
[2020-02-17] MEDS ORDERED: REGULAR INSULIN 100 UNITS in SODIUM CHLORIDE 0.9% 99 ML IV PRN ×2 (22:34→22:49)
[2020-02-17] MEDS ORDERED: D5%-0.45NACL+KCL 20MEQ 1,000 ML IV SCH (22:49)
[2020-02-17] MEDS ORDERED: SODIUM CHLORIDE 0.9% 1,000 ML IV SCH (22:49)
[2020-02-17] MEDS ORDERED: INSU100I13 SC (22:53)
[2020-02-17] MEDS ORDERED: PANT40TA5 PO (22:53)
[2020-02-17] MEDS ORDERED: GABA300C10 PO (22:53)
[2020-02-17] MEDS ORDERED: INSU100C5 SQ-INSULIN (22:53)
[2020-02-17] MEDS ORDERED: SUCR1TAB PO (22:53)
[2020-02-17] MEDS ORDERED: FLUC100T4 PO (22:53)
[2020-02-17] MEDS ORDERED: ACET-1770 PO (22:53)
[2020-02-17] MEDS ORDERED: MECO0.5P PO (22:53)
[2020-02-17] MEDS ORDERED: LEVE500T22 PO (22:53)
[2020-02-17] MEDS ORDERED: hydrALAzine 20 MG/ML, 1ML IVPush PRN (23:00)
[2020-02-17] MEDS ORDERED: ONDANSETRON 2MG/ML, 2ML IV PRN (23:00)
[2020-02-17 23:15] LABS: O2 FLOW ROOM AIR L/min
[2020-02-17 23:25] LABS: ANION GAP 24 mmol/L (5-15); CALCIUM 8.6 mg/dL (8.5-10.1); CHLORIDE 100 mmol/L (98-107); CREATININE 1.11 mg/dL (0.7-1.3)
[2020-02-17] MEDS ORDERED: FLUCONAZOLE 100MG/50ML 100 MG in BAG 1 EACH IV SCH (23:30)
[2020-02-18] MEDS: LEVETIRACETAM 500 MG in SODIUM CHLORIDE 0.9% 100 ML IV SCH ×3 (00:13→23:30)
[2020-02-18 00:25] VITALS: BP 117/77
[2020-02-18] MEDS ORDERED: FLUCONAZOLE MC SCH (00:30)
[2020-02-18] MEDS: PANTOPRAZOLE 40 MG IV IVPush SCH ×2 (01:01→12:34)
[2020-02-18 01:18] LABS: MICROSCOPIC AUTO
[2020-02-18 01:27] LABS: AMPHETAMINE SCREEN, URINE Negative (Negative); BARBITURATE SCREEN, URINE Negative (Negative); BENZODIAZEPINE SCREEN, URINE Negative (Negative); CANNABINOID SCREEN, URINE Negative (Negative); COCAINE SCREEN, URINE Negative (Negative); METHADONE SCREEN, URINE Negative (Negative); OPIATE SCREEN, URINE Negative (Negative)
[2020-02-18 02:08] VITALS: BP 117/77
[2020-02-18 03:36] LABS: ANION GAP 19 mmol/L (5-15); CALCIUM 8.1 mg/dL (8.5-10.1); CHLORIDE 107 mmol/L (98-107); CREATININE 1.11 mg/dL (0.7-1.3)
[2020-02-18 04:00] VITALS: BP 90/57
[2020-02-18] MEDS ORDERED: SODIUM BICARBONATE 1 MEQ/ML, 50ML VIAL IVPush ONE (06:00)
[2020-02-18] MEDS: FLUCONAZOLE 200 MG/100 ML 100 ML IV SCH (06:42)
[2020-02-18] MEDS: SUCRALFATE 1 GM/10 ML UDC PO SCH ×3 (07:00→16:09)
[2020-02-18 07:45] LABS: ANION GAP 12 mmol/L (5-15); CALCIUM 8.2 mg/dL (8.5-10.1); CHLORIDE 109 mmol/L (98-107)
[2020-02-18] MEDS ORDERED: PANTOPRAZOLE 40 MG IV IVPush SCH (09:00)
[2020-02-18] MEDS ORDERED: SUCRALFATE 1 GM TABLET PO SCH (09:00)
[2020-02-18 11:30] LABS: CHLORIDE 112 mmol/L (98-107)
[2020-02-18 11:35] LABS: ANION GAP 8 mmol/L (5-15); CREATININE 1.11 mg/dL (0.7-1.3)
[2020-02-18] MEDS: SODIUM CHLORIDE 0.9% 1,000 ML IV SCH ×2 (14:29→21:33)
[2020-02-18] MEDS: INSULIN GLARGINE 100 UNITS/ML, PEN SQ-INSULIN SCH ×2 (14:49→21:33)
[2020-02-18] MEDS: INSULIN LISPRO 100 UNITS/ML, PEN SQ-INSULIN SCH ×2 (16:00→21:34)
[2020-02-18 19:24] VITALS: BP 99/64
[2020-02-18] MEDS: PANTOPRAZOLE 40MG TABLET PO SCH (19:59)
[2020-02-19 01:02] VITALS: BP 97/60
[2020-02-19] MEDS: SODIUM CHLORIDE 0.9% 1,000 ML IV SCH ×2 (04:45→15:43)
[2020-02-19 06:31] LABS: ANION GAP 7 mmol/L (5-15); CALCIUM 7.9 mg/dL (8.5-10.1); CHLORIDE 108 mmol/L (98-107); CREATININE 0.91 mg/dL (0.7-1.3)
[2020-02-19] MEDS: FLUCONAZOLE 200 MG/100 ML 100 ML IV SCH (06:37)
[2020-02-19] MEDS: INSULIN LISPRO 100 UNITS/ML, PEN SQ-INSULIN SCH ×4 (07:00→20:09)
[2020-02-19 07:11] VITALS: BP 103/58
[2020-02-19] MEDS ORDERED: DEXTROSE 50%, 50ML SYRINGE IVPush PRN (07:30)
[2020-02-19] MEDS ORDERED: GLUCAGON 1 MG IM PRN (07:30)
[2020-02-19] MEDS ORDERED: DEXTROSE 4 GM TAB.CHEW PO PRN (07:30)
[2020-02-19] MEDS: SUCRALFATE 1 GM/10 ML UDC PO SCH ×3 (08:01→15:43)
[2020-02-19] MEDS: SODIUM CHLORIDE FLUSH 10ML SYR IVF SCH ×2 (08:01→20:02)
[2020-02-19] MEDS: INSULIN GLARGINE 100 UNITS/ML, PEN SQ-INSULIN SCH ×2 (09:00→20:09)
[2020-02-19] MEDS: PANTOPRAZOLE 40MG TABLET PO SCH ×2 (10:16→20:01)
[2020-02-19] MEDS: LEVETIRACETAM 500 MG in SODIUM CHLORIDE 0.9% 100 ML IV SCH ×2 (11:22→23:45)
[2020-02-19 15:39] VITALS: BP 116/71
[2020-02-19 19:00] VITALS: BP 112/71
[2020-02-20 01:27] VITALS: BP 113/76
[2020-02-20 04:23] LABS: BASOPHILS # (AUTO) 0.03 x10^3/uL (0-0.1); BASOPHILS % (AUTO) 0 % (0-1); EOSINOPHILS # (AUTO) 0.02 x10^3/uL (0-0.4); EOSINOPHILS % (AUTO) 0 % (1-7); LYMPHOCYTES # (AUTO) 2.25 x10^3/uL (1-3.4); LYMPHOCYTES % (AUTO) 32 % (22-44); MD NO; MEAN CORPUSCULAR HEMOGLOBIN 29.3 pg (27.5-34.5); MEAN CORPUSCULAR HGB CONC 33.1 g/dL (33.2-36.2); MEAN CORPUSCULAR VOLUME 88.5 fL (81-97); MEAN PLATELET VOLUME 7.7 fL (7.4-10.4); MONOCYTES # (AUTO) 0.56 x10^3/uL (0.2-0.8); MONOCYTES % (AUTO) 8 % (2-9); NEUTROPHILS # (AUTO) 4.13 x10^3/uL (1.8-6.8); NEUTROPHILS % (AUTO) 59 % (42-75); PLATELET COUNT 423 x10^3/uL (130-400); RED BLOOD COUNT 4.04 x10^6/uL (4.38-5.82); RED CELL DISTRIBUTION WIDTH 13.9 % (9.4-14.8)
[2020-02-20 04:31] LABS: ANION GAP 6 mmol/L (5-15); CALCIUM 8.1 mg/dL (8.5-10.1); CHLORIDE 105 mmol/L (98-107)
[2020-02-20] MEDS: FLUCONAZOLE 200 MG/100 ML 100 ML IV SCH (06:34)
[2020-02-20 06:51] VITALS: BP 118/76
[2020-02-20] MEDS: SUCRALFATE 1 GM/10 ML UDC PO SCH ×3 (07:34→16:24)
[2020-02-20] MEDS: INSULIN LISPRO 100 UNITS/ML, PEN SQ-INSULIN SCH ×4 (07:47→20:42)
[2020-02-20] MEDS: SODIUM CHLORIDE FLUSH 10ML SYR IVF SCH ×2 (09:00→20:30)
[2020-02-20] MEDS: INSULIN GLARGINE 100 UNITS/ML, PEN SQ-INSULIN SCH ×2 (09:46→20:42)
[2020-02-20] MEDS: SODIUM CHLORIDE 0.9% 1,000 ML IV SCH (09:46)
[2020-02-20] MEDS: PANTOPRAZOLE 40MG TABLET PO SCH ×2 (09:46→20:30)
[2020-02-20] MEDS: LEVETIRACETAM 500 MG in SODIUM CHLORIDE 0.9% 100 ML IV SCH (11:35)
[2020-02-20 12:57] VITALS: BP 96/57
[2020-02-20 18:39] VITALS: BP 102/64
[2020-02-20] MEDS: LEVETIRACETAM 500 MG TABLET PO SCH (20:30)
[2020-02-21 01:12] VITALS: BP 105/69
[2020-02-21 05:18] LABS: BASOPHILS # (AUTO) 0.04 x10^3/uL (0-0.1); BASOPHILS % (AUTO) 1 % (0-1); EOSINOPHILS # (AUTO) 0.01 x10^3/uL (0-0.4); EOSINOPHILS % (AUTO) 0 % (1-7); LYMPHOCYTES # (AUTO) 2.54 x10^3/uL (1-3.4); LYMPHOCYTES % (AUTO) 40 % (22-44); MD NO; MEAN CORPUSCULAR HEMOGLOBIN 29.2 pg (27.5-34.5); MEAN CORPUSCULAR HGB CONC 33.1 g/dL (33.2-36.2); MEAN CORPUSCULAR VOLUME 88.1 fL (81-97); MEAN PLATELET VOLUME 7.5 fL (7.4-10.4); MONOCYTES # (AUTO) 0.47 x10^3/uL (0.2-0.8); MONOCYTES % (AUTO) 7 % (2-9); NEUTROPHILS # (AUTO) 3.24 x10^3/uL (1.8-6.8); NEUTROPHILS % (AUTO) 52 % (42-75); PLATELET COUNT 403 x10^3/uL (130-400); RED BLOOD COUNT 4.15 x10^6/uL (4.38-5.82)
[2020-02-21 05:30] LABS: ANION GAP 4 mmol/L (5-15); CALCIUM 8.4 mg/dL (8.5-10.1); CHLORIDE 105 mmol/L (98-107)
[2020-02-21] MEDS: SODIUM CHLORIDE 0.9% 1,000 ML IV SCH (06:09)
[2020-02-21] MEDS: FLUCONAZOLE 200 MG/100 ML 100 ML IV SCH (06:09)
[2020-02-21 06:44] VITALS: BP 119/78
[2020-02-21] MEDS: SUCRALFATE 1 GM/10 ML UDC PO SCH ×2 (07:17→11:25)
[2020-02-21] MEDS: INSULIN LISPRO 100 UNITS/ML, PEN SQ-INSULIN SCH ×2 (07:18→11:00)
[2020-02-21] MEDS: LEVETIRACETAM 500 MG TABLET PO SCH (08:46)
[2020-02-21] MEDS: PANTOPRAZOLE 40MG TABLET PO SCH (08:46)
[2020-02-21] MEDS: INSULIN GLARGINE 100 UNITS/ML, PEN SQ-INSULIN SCH (08:49)
[2020-02-21] MEDS: SODIUM CHLORIDE FLUSH 10ML SYR IVF SCH (08:50)
[2020-02-21 13:45] VITALS: BP 101/66
[2020-02-21] MEDS ORDERED: FLUC100T4 PO (14:31)
[2020-02-21] MEDS ORDERED: INSU100I13 SQ-INSULIN (14:31)
== END 2020-02-21 15:42 | disposition home or self-care (01) | DRG 639 ==
LOC: ED 21:16 → MERGE 21:16 → 5SO 02-18 00:25 → ED 02-18 01:09 → EDIP 02-18 01:10 → 5SO 02-18 02:02 → 3N 02-18 15:14
PROVIDERS: ADMIT Internal Medicine; ATTEND Hospitalist
DX: E10.10 Type 1 diabetes mellitus with ketoacidosis without coma (principal); E86.0 Dehydration; R13.10 Dysphagia, unspecified; G40.909 Epilepsy, unspecified, not intractable, without status epilepticus; E87.5 Hyperkalemia; D72.828 Other elevated white blood cell count; K21.0 Gastro-esophageal reflux disease with esophagitis; Z91.19 Patient's noncompliance with other medical treatment and regimen; Z87.19 Personal history of other diseases of the digestive system
CPT/HCPCS: 36415; 71045; 80048; 80053; 80307; 81001; 82803; 82947; 82962; 83036; 83690; 83735; 83930; 84100; 85025; 93005; 96361; 96374; G0378; J1815; J1953; C9113; J1450; J3480; J7030

== ENCOUNTER 2020-02-23 15:26 | Inpatient (IN) | payer MEDICAID, OTHER ==
[~2020-02-23] VITALS: Ht 185.4 cm; Wt 83.6 kg
[~2020-02-23 15:26] MED LIST changes: +ACET-1770 PO; +INSU100I13 SC; +LEVE500T22 PO; +SUCR1TAB PO
[2020-02-23] MEDS ORDERED: INSU100V8 SQ (15:49)
[2020-02-23] MEDS ORDERED: MECO1POW4 PO (15:49)
--- NOTE | 2020-02-23 15:52 | NUR ---
PER REPORT FROM THIS IS AN ONGOING ISSUE WITH PT. STATED HE HAS BEEN REFUSING HIS MEDICATION FOR WEEKS AND "NOT EATING CORRECTLY. PT GETS ADMITTED TO THE HOSPITAL BACK ON THE RIGHT TRACK THEN DOES IT ALL OVER AGAIN." REPORT TO PRIMARY RN ASHER.
[2020-02-23] MEDS ORDERED: SODIUM CHLORIDE 0.9% 1,000ML IVBOLUS ONE ×4 (16:00→22:30)
[2020-02-23] MEDS ORDERED: REGULAR INSULIN 100 UNITS in SODIUM CHLORIDE 0.9% 99 ML IV PRN (16:01)
[2020-02-23 16:25] LABS: ALANINE AMINOTRANSFERASE 24 U/L (12-78); ALBUMIN 3.3 g/dL (3.4-5.0); ANION GAP 16 mmol/L (5-15); CALCIUM 9.4 mg/dL (8.5-10.1); CHLORIDE 97 mmol/L (98-107); CREATININE 1.04 mg/dL (0.7-1.3)
[2020-02-23 16:27] LABS: ALKALINE PHOSPHATASE 74 U/L (45-117); BILIRUBIN,TOTAL 0.6 mg/dL (0.2-1.0); TOTAL PROTEIN 7.1 g/dL (6.4-8.2)
[2020-02-23] MEDS ORDERED: LACTULOSE 10 GM/15 ML UDC PO PRN (16:30)
[2020-02-23] MEDS ORDERED: LABETALOL 5MG/ML, 20ML IVPush PRN (16:30)
[2020-02-23] MEDS ORDERED: ENALAPRILAT 1.25 MG/ML, 2ML IVPush PRN (16:30)
[2020-02-23] MEDS ORDERED: ONDANSETRON 2MG/ML, 2ML IV PRN (16:30)
[2020-02-23 16:38] LABS: O2 FLOW ROOM AIR L/min
[2020-02-23 16:47] LABS: ACETONE, SERUM Moderate(40mg/dL) (Negative)
--- NOTE | 2020-02-23 16:50 | NUR ---
REPORT OF PT FROM DEVAN FAIRCHILD. IV ACCESS ATTEMPTED X 4. VASCULAR ACCESS DIFFICULT AT THIS TIME. WAS ABLE TO PLACE AN EXTERNAL JUGULAR CATHETER. CHANGE NUMBER OPERATOR LINSEY NOTIFIED OF NEED FOR ANOTHER IV. PER PT, US IV USUALLY INDICATED. YELLOW LAB SLIP SENT TO PHARMACY AT THIS TIME FOR INSULIN DRIP. AWAITING MEDS TO ARRIVE.
--- NOTE | 2020-02-23 16:56 | NUR ---
REPORT OF PT TO DEVAN WOODSON. ALL QUESTIONS ANSWERED. PER CHINTAN, THEY WILL START 2ND IV UPSTAIRS. AWAITING INSULIN DRIP FROM PHARMACY AT THIS TIME.
--- NOTE | 2020-02-23 17:22 | NUR ---
PT MEDICATED PER JAN. UPDATE OF REPORT CALLED TO DEVAN WOODSON. ALL QUESTIONS ANSWERED. TECH PAGED FOR TRANSPORT OF PT FROM ED TO FLOOR AT THIS TIME.
--- NOTE | 2020-02-23 18:01 | NUR ---
PT TRANSPORTED TO ICU IN [facility] WITH FARRUKH SAMUELS, AT THIS TIME.
[2020-02-23] MEDS: HEPARIN 5,000 UNITS/ML, 1ML SQ SCH (18:04)
[2020-02-23] MEDS: SODIUM CHLORIDE 0.9% 1,000 ML IV SCH ×2 (18:05→22:02)
[2020-02-23 19:32] LABS: BASOPHILS # (AUTO) 0.05 x10^3/uL (0-0.1); BASOPHILS % (AUTO) 1 % (0-1); EOSINOPHILS % (AUTO) 0 % (1-7); LYMPHOCYTES % (AUTO) 14 % (22-44); MD NO; MEAN CORPUSCULAR HEMOGLOBIN 28.9 pg (27.5-34.5); MEAN CORPUSCULAR HGB CONC 32.6 g/dL (33.2-36.2); MEAN CORPUSCULAR VOLUME 88.6 fL (81-97); MEAN PLATELET VOLUME 8.2 fL (7.4-10.4); MONOCYTES # (AUTO) 0.22 x10^3/uL (0.2-0.8); MONOCYTES % (AUTO) 3 % (2-9); NEUTROPHILS # (AUTO) 7.21 x10^3/uL (1.8-6.8); NEUTROPHILS % (AUTO) 83 % (42-75); PLATELET COUNT 471 x10^3/uL (130-400); RED BLOOD COUNT 4.77 x10^6/uL (4.38-5.82); RED CELL DISTRIBUTION WIDTH 13.9 % (9.4-14.8)
[2020-02-23 20:23] LABS: ANION GAP 16 mmol/L (5-15); CALCIUM 8.7 mg/dL (8.5-10.1); CHLORIDE 102 mmol/L (98-107); CREATININE 1.01 mg/dL (0.7-1.3)
[2020-02-23] MEDS: D5%-0.45NACL+KCL 20MEQ 1,000 ML IV SCH (22:01)
[2020-02-23 23:31] LABS: MICROSCOPIC AUTO
[2020-02-23 23:35] LABS: CULTURE INDICATED? NO
[2020-02-24 00:47] LABS: BASOPHILS # (AUTO) 0.03 x10^3/uL (0-0.1); BASOPHILS % (AUTO) 0 % (0-1); EOSINOPHILS % (AUTO) 0 % (1-7); LYMPHOCYTES # (AUTO) 2.38 x10^3/uL (1-3.4); LYMPHOCYTES % (AUTO) 31 % (22-44); MD NO; MEAN CORPUSCULAR HEMOGLOBIN 29.2 pg (27.5-34.5); MEAN CORPUSCULAR HGB CONC 33.3 g/dL (33.2-36.2); MEAN CORPUSCULAR VOLUME 87.5 fL (81-97); MEAN PLATELET VOLUME 7.4 fL (7.4-10.4); MONOCYTES # (AUTO) 0.55 x10^3/uL (0.2-0.8); MONOCYTES % (AUTO) 7 % (2-9); NEUTROPHILS # (AUTO) 4.72 x10^3/uL (1.8-6.8); NEUTROPHILS % (AUTO) 61 % (42-75); PLATELET COUNT 441 x10^3/uL (130-400); RED BLOOD COUNT 3.54 x10^6/uL (4.38-5.82); RED CELL DISTRIBUTION WIDTH 14.2 % (9.4-14.8)
[2020-02-24 00:56] LABS: ANION GAP 8 mmol/L (5-15); CALCIUM 7.4 mg/dL (8.5-10.1); CHLORIDE 109 mmol/L (98-107); CREATININE 0.84 mg/dL (0.7-1.3)
[2020-02-24] MEDS: HEPARIN 5,000 UNITS/ML, 1ML SQ SCH ×3 (01:04→16:55)
[2020-02-24] MEDS ORDERED: PANTOPRAZOLE 40 MG IV IVPush SCH (02:00)
[2020-02-24] MEDS: D5%-0.45NACL+KCL 20MEQ 1,000 ML IV SCH (04:02)
[2020-02-24 04:34] LABS: ANION GAP 6 mmol/L (5-15); CALCIUM 7.5 mg/dL (8.5-10.1); CHLORIDE 108 mmol/L (98-107); CREATININE 0.82 mg/dL (0.7-1.3)
[2020-02-24 06:32] LABS: BASOPHILS # (AUTO) 0.06 x10^3/uL (0-0.1); BASOPHILS % (AUTO) 1 % (0-1); EOSINOPHILS % (AUTO) 0 % (1-7); LYMPHOCYTES # (AUTO) 2.93 x10^3/uL (1-3.4); LYMPHOCYTES % (AUTO) 39 % (22-44); MD NO; MEAN CORPUSCULAR HEMOGLOBIN 29.7 pg (27.5-34.5); MEAN CORPUSCULAR HGB CONC 33.7 g/dL (33.2-36.2); MEAN CORPUSCULAR VOLUME 88.2 fL (81-97); MEAN PLATELET VOLUME 8.7 fL (7.4-10.4); MONOCYTES # (AUTO) 0.44 x10^3/uL (0.2-0.8); MONOCYTES % (AUTO) 6 % (2-9); NEUTROPHILS # (AUTO) 4.06 x10^3/uL (1.8-6.8); NEUTROPHILS % (AUTO) 54 % (42-75); PLATELET COUNT 422 x10^3/uL (130-400); RED CELL DISTRIBUTION WIDTH 14.1 % (9.4-14.8)
[2020-02-24] MEDS: INSULIN LISPRO 100 UNITS/ML, PEN SQ-INSULIN SCH ×4 (07:00→21:11)
[2020-02-24] MEDS: SODIUM CHLORIDE 0.9% 1,000 ML IV SCH ×2 (07:13→16:53)
[2020-02-24 08:00] LABS: ANION GAP 5 mmol/L (5-15); CALCIUM 7.8 mg/dL (8.5-10.1); CHLORIDE 108 mmol/L (98-107); CREATININE 0.85 mg/dL (0.7-1.3)
[2020-02-24] MEDS: GABAPENTIN 300 MG CAPSULE PO SCH ×3 (08:42→21:00)
[2020-02-24] MEDS: INSULIN GLARGINE 100 UNITS/ML, PEN SQ-INSULIN SCH ×3 (08:43→21:12)
[2020-02-24] MEDS: LEVETIRACETAM 500 MG TABLET PO SCH ×2 (08:43→21:10)
[2020-02-24] MEDS: PANTOPRAZOLE 40MG TABLET PO SCH ×3 (08:43→16:53)
[2020-02-24] MEDS: FLUCONAZOLE 200 MG/100 ML 100 ML IV SCH ×2 (09:20→21:12)
[2020-02-24 09:43] VITALS: BP 105/65
[2020-02-24 12:35] LABS: CHLORIDE 106 mmol/L (98-107)
[2020-02-24 12:39] LABS: ANION GAP 9 mmol/L (5-15); CALCIUM 7.8 mg/dL (8.5-10.1); CREATININE 0.91 mg/dL (0.7-1.3)
[2020-02-24] MEDS ORDERED: D5%-0.45NACL+KCL 20MEQ 1,000 ML IV SCH (16:01)
[2020-02-24 16:09] LABS: ANION GAP 5 mmol/L (5-15); CALCIUM 7.6 mg/dL (8.5-10.1); CHLORIDE 105 mmol/L (98-107); CREATININE 0.83 mg/dL (0.7-1.3)
[2020-02-24 18:23] VITALS: BP 108/63
[2020-02-24 20:00] LABS: ANION GAP 7 mmol/L (5-15); CALCIUM 7.8 mg/dL (8.5-10.1); CHLORIDE 106 mmol/L (98-107); CREATININE 0.98 mg/dL (0.7-1.3)
[2020-02-25] VITALS (7 sets, daily range): BP systolic 106–135; BP diastolic 62–79
[2020-02-25 00:36] LABS: ANION GAP 6 mmol/L (5-15); CALCIUM 8.2 mg/dL (8.5-10.1); CHLORIDE 109 mmol/L (98-107); CREATININE 0.77 mg/dL (0.7-1.3)
[2020-02-25] MEDS: HEPARIN 5,000 UNITS/ML, 1ML SQ SCH ×3 (00:55→16:17)
[2020-02-25] MEDS: SODIUM CHLORIDE 0.9% 1,000 ML IV SCH (00:55)
[2020-02-25] MEDS ORDERED: GLUCAGON 1 MG IM PRN (04:30)
[2020-02-25] MEDS ORDERED: DEXTROSE 4 GM TAB.CHEW PO PRN (04:30)
[2020-02-25] MEDS ORDERED: DEXTROSE 50%, 50ML SYRINGE IVPush PRN (04:30)
[2020-02-25] MEDS: PANTOPRAZOLE 40MG TABLET PO SCH ×3 (04:33→16:17)
[2020-02-25] MEDS: D5%-0.45% NACL 1,000 ML IV SCH ×2 (05:08→11:47)
[2020-02-25 05:33] LABS: ANION GAP 6 mmol/L (5-15); CHLORIDE 108 mmol/L (98-107); CREATININE 0.85 mg/dL (0.7-1.3)
[2020-02-25] MEDS: INSULIN LISPRO 100 UNITS/ML, PEN SQ-INSULIN SCH ×4 (07:00→22:16)
[2020-02-25] MEDS ORDERED: POTASSIUM CHLORIDE 20 MEQ TAB.ER.PRT PO ONE (08:00)
[2020-02-25 08:38] LABS: ANION GAP 6 mmol/L (5-15); CALCIUM 7.8 mg/dL (8.5-10.1); CHLORIDE 107 mmol/L (98-107); CREATININE 0.76 mg/dL (0.7-1.3)
[2020-02-25] MEDS: SODIUM CHLORIDE FLUSH 10ML SYR IVF SCH ×2 (08:48→21:00)
[2020-02-25] MEDS: GABAPENTIN 300 MG CAPSULE PO SCH ×2 (08:48→21:00)
[2020-02-25] MEDS: LEVETIRACETAM 500 MG TABLET PO SCH ×2 (08:49→22:14)
[2020-02-25] MEDS: INSULIN GLARGINE 100 UNITS/ML, PEN SQ-INSULIN SCH (08:49)
[2020-02-25] MEDS ORDERED: POTASSIUM CHLORIDE 40 MEQ in SODIUM CHLORIDE 0.9% 500 ML IV ONE (09:30)
[2020-02-25] MEDS: SUCRALFATE 1 GM/10 ML UDC PO SCH ×2 (16:17→22:13)
[2020-02-25] MEDS ORDERED: INSULIN GLARGINE 100 UNITS/ML, PEN SQ-INSULIN SCH (21:00)
[2020-02-25] MEDS: FLUCONAZOLE 200 MG TABLET PO SCH (21:00)
[2020-02-25 22:53] LABS: TROPONIN I < 0.015 ng/mL (0.000-0.045)
[2020-02-25] MEDS ORDERED: MAGNESIUM SULFATE PMX 2GM/50ML 50 ML IV ONE (23:30)
[2020-02-26 00:26] VITALS: BP 120/76
[2020-02-26] MEDS: HEPARIN 5,000 UNITS/ML, 1ML SQ SCH ×3 (01:24→16:05)
[2020-02-26] MEDS ORDERED: MAGNESIUM SULFATE PMX 2GM/50ML 50 ML IV ONE (06:00)
[2020-02-26] MEDS: PANTOPRAZOLE 40MG TABLET PO SCH ×2 (06:27→16:06)
[2020-02-26] MEDS: SUCRALFATE 1 GM/10 ML UDC PO SCH ×4 (06:27→21:00)
[2020-02-26 06:50] VITALS: BP 119/72
[2020-02-26] MEDS: INSULIN LISPRO 100 UNITS/ML, PEN SQ-INSULIN SCH ×4 (07:00→21:00)
[2020-02-26] MEDS: LEVETIRACETAM 500 MG TABLET PO SCH ×2 (08:57→21:00)
[2020-02-26] MEDS: GABAPENTIN 300 MG CAPSULE PO SCH ×2 (08:57→21:00)
[2020-02-26] MEDS: FLUCONAZOLE 200 MG TABLET PO SCH (08:57)
[2020-02-26] MEDS: SODIUM CHLORIDE FLUSH 10ML SYR IVF SCH ×2 (08:59→21:00)
[2020-02-26] MEDS: INSULIN GLARGINE 100 UNITS/ML, PEN SQ-INSULIN SCH ×2 (08:59→21:00)
[2020-02-26] MEDS ORDERED: ALUMINUM/MAG/SIMETHICONE 30 ML UDC PO PRN (13:00)
[2020-02-26 14:01] VITALS: BP 115/77
[2020-02-26 19:10] VITALS: BP 111/68
[2020-02-27 00:06] VITALS: BP 112/61
[2020-02-27] MEDS: HEPARIN 5,000 UNITS/ML, 1ML SQ SCH ×2 (00:30→09:07)
[2020-02-27] MEDS: PANTOPRAZOLE 40MG TABLET PO SCH (06:00)
[2020-02-27] MEDS: INSULIN LISPRO 100 UNITS/ML, PEN SQ-INSULIN SCH ×2 (07:00→11:00)
[2020-02-27 07:01] VITALS: BP 110/74
[2020-02-27] MEDS: SUCRALFATE 1 GM/10 ML UDC PO SCH ×2 (07:41→11:34)
[2020-02-27] MEDS ORDERED: INSULIN GLARGINE 100 UNITS/ML, PEN SQ-INSULIN SCH (09:00)
[2020-02-27] MEDS: FLUCONAZOLE 200 MG TABLET PO SCH (09:07)
[2020-02-27] MEDS: GABAPENTIN 300 MG CAPSULE PO SCH (09:07)
[2020-02-27] MEDS: SODIUM CHLORIDE FLUSH 10ML SYR IVF SCH (09:07)
[2020-02-27] MEDS: LEVETIRACETAM 500 MG TABLET PO SCH (09:08)
[2020-02-27] MEDS ORDERED: FLUC100T4 PO (11:04)
[2020-02-27] MEDS ORDERED: PANT40TA5 PO (11:04)
[2020-02-27] MEDS ORDERED: INSU100V8 SQ (11:04)
[2020-02-27 13:18] VITALS: BP 117/72
== END 2020-02-27 14:52 | DRG 638 ==
LOC: ED 16:12 → EDIP 16:15 → CCU 17:52 → 3N 02-24 09:40
PROVIDERS: ADMIT Internal Medicine; ATTEND Internal Medicine
DX: E10.10 Type 1 diabetes mellitus with ketoacidosis without coma (principal); E87.1 Hypo-osmolality and hyponatremia; K22.10 Ulcer of esophagus without bleeding; B37.81 Candidal esophagitis; E87.5 Hyperkalemia; K21.0 Gastro-esophageal reflux disease with esophagitis; G56.00 Carpal tunnel syndrome, unspecified upper limb; G40.909 Epilepsy, unspecified, not intractable, without status epilepticus; I25.2 Old myocardial infarction; Z79.4 Long term (current) use of insulin; Z91.19 Patient's noncompliance with other medical treatment and regimen; Z88.0 Allergy status to penicillin
CPT/HCPCS: 36415; 36600; 71045; 80048; 80053; 81001; 82010; 82533; 82803; 82962; 83735; 84100; 84145; 84484; 85025; 87081; 93005; 96361; 96374; 96375; G0378; J1644; J2405; J3480; C9113; J1450; J1815; J3475; J7030; J7040

== ENCOUNTER 2020-02-28 11:06 | Inpatient (IN) | payer MEDICAID, OTHER ==
[~2020-02-28] VITALS: Ht 185.4 cm; Wt 78.4 kg
[~2020-02-28 11:06] MED LIST changes: +INSU100V8 SQ; +MECO1POW4 PO
--- NOTE | 2020-02-28 11:22 | NUR ---
IV ATTEMPTED X1 PER DEVAN PENALOZA
[2020-02-28] MEDS ORDERED: SODIUM CHLORIDE FLUSH 10ML SYR IVF ONE (11:30)
[2020-02-28] MEDS ORDERED: SODIUM CHLORIDE 0.9% 1,000ML IVBOLUS ONE ×3 (11:30→16:30)
--- NOTE | 2020-02-28 11:40 | NUR ---
PT INFORMED OF NEED FOR URINE SPECIMEN. URINAL PROVIDED.
[2020-02-28 11:47] LABS: PH, VENOUS 7.276 pH (7.320-7.420)
[2020-02-28 11:49] LABS: BASOPHILS % (AUTO) 0 % (0-1); EOSINOPHILS % (AUTO) 0 % (1-7); LYMPHOCYTES # (AUTO) 0.95 x10^3/uL (1-3.4); LYMPHOCYTES % (AUTO) 7 % (22-44); MD NO; MEAN CORPUSCULAR HEMOGLOBIN 29.3 pg (27.5-34.5); MEAN CORPUSCULAR HGB CONC 32.8 g/dL (33.2-36.2); MEAN CORPUSCULAR VOLUME 89.3 fL (81-97); MEAN PLATELET VOLUME 8.7 fL (7.4-10.4); MONOCYTES # (AUTO) 0.07 x10^3/uL (0.2-0.8); MONOCYTES % (AUTO) 1 % (2-9); NEUTROPHILS # (AUTO) 13.06 x10^3/uL (1.8-6.8); NEUTROPHILS % (AUTO) 93 % (42-75); PLATELET COUNT 393 x10^3/uL (130-400); RED BLOOD COUNT 4.51 x10^6/uL (4.38-5.82); RED CELL DISTRIBUTION WIDTH 15.3 % (9.4-14.8)
[2020-02-28 12:02] LABS: ALANINE AMINOTRANSFERASE 24 U/L (12-78); ALBUMIN 3.5 g/dL (3.4-5.0); ANION GAP 20 mmol/L (5-15); CALCIUM 9.4 mg/dL (8.5-10.1); CHLORIDE 96 mmol/L (98-107); CREATININE 1.14 mg/dL (0.7-1.3)
[2020-02-28 12:03] LABS: ALKALINE PHOSPHATASE 76 U/L (45-117); TOTAL PROTEIN 7.3 g/dL (6.4-8.2)
[2020-02-28 12:09] LABS: ACETONE, SERUM Large (80mg/dL) (Negative)
[2020-02-28] MEDS ORDERED: REGULAR INSULIN 100 UNITS in SODIUM CHLORIDE 0.9% 99 ML IV PRN ×2 (12:54→13:28)
[2020-02-28] MEDS ORDERED: LACTATED RINGERS 1,000 ML IVBOLUS ONE (13:00)
[2020-02-28 13:12] LABS: MICROSCOPIC NOT IND
--- NOTE | 2020-02-28 13:12 | NUR ---
RECEIVED REPORT FROM DEVAN JAFFE.
--- NOTE | 2020-02-28 13:12 | NUR ---
PT REPORT TO DEVAN AGGARWAL. PT CARE TRANSFERRED.
[2020-02-28 13:13] LABS: CULTURE INDICATED? NO
--- NOTE | 2020-02-28 13:24 | NUR ---
MD TO BEDSIDE, PT LAYING IN BED, RESPIRATIONS EVEN AND UNLABORED, NO SIGNS OF DISTRESS. LAW ENFORCEMENT REMAINS AT BEDSIDE.
[2020-02-28] MEDS ORDERED: D5%-0.45NACL+KCL 20MEQ 1,000 ML IV SCH (13:28)
[2020-02-28] MEDS ORDERED: DEXTROSE 50%, 50ML SYRINGE IVPush PRN (13:30)
[2020-02-28] MEDS ORDERED: hydrALAzine 20 MG/ML, 1ML IVPush PRN (13:30)
[2020-02-28] MEDS ORDERED: DEXTROSE 4 GM TAB.CHEW PO PRN (13:30)
[2020-02-28] MEDS ORDERED: ONDANSETRON 2MG/ML, 2ML IV PRN (13:30)
[2020-02-28] MEDS ORDERED: HYDROcodone/APAP 5/325 TABLET PO PRN (13:30)
[2020-02-28] MEDS ORDERED: MORPHINE SULFATE 4 MG/ML, 1ML IVPush PRN (13:30)
[2020-02-28] MEDS ORDERED: GLUCAGON 1 MG IM PRN (13:30)
[2020-02-28] MEDS ORDERED: ONDANSETRON ODT 4 MG PO PRN (13:30)
[2020-02-28] MEDS ORDERED: ACETAMINOPHEN 325 MG TABLET PO PRN (13:30)
--- NOTE | 2020-02-28 13:49 | NUR ---
Break RN. Insulin gtt requested from pharmacy. U/S at bedside. Pt resting in bed, remains on monitors. Will follow orders.
--- NOTE | 2020-02-28 14:47 | NUR ---
PT LAYING IN BED, RESPIRATIONS EVEN AND UNLABORED. PT VOMITTED DARK GREEN LIQUID. HOB ELEVATED TO HELP PROTECT AIRWAY. PT MEDICATED TO MAR. OFFICERS REMAIN AT BEDSIDE.
--- NOTE | 2020-02-28 14:57 | NUR ---
REPORT GIVEN TO DEVAN FAULKNER.
--- NOTE | 2020-02-28 15:13 | NUR ---
PT STATES SOB AFTER VOMITTING, RESPIRATORY RATE 30, PT COMPLAINT WITH TAKING DEEP BREATHS, O2 STAT REMAINS ABOVE 90. PT SITTING UP HIGHER BED.
[2020-02-28 15:22] LABS: ANION GAP 22 mmol/L (5-15); CALCIUM 9.1 mg/dL (8.5-10.1); CHLORIDE 101 mmol/L (98-107); CREATININE 1.11 mg/dL (0.7-1.3)
--- NOTE | 2020-02-28 15:40 | NUR ---
pt eyes closed, respirations even and unlabored, no signs of distress, resting respiratory rate is 27.
--- NOTE | 2020-02-28 16:19 | NUR ---
Piv placed in patient and flushes without difficulty.
[2020-02-28] MEDS ORDERED: CALCIUM GLUCONATE 4.6 MEQ/10 ML IVPush ONE (16:30)
[2020-02-28] MEDS: SODIUM CHLORIDE 0.9% 1,000 ML IV SCH ×2 (16:58→20:05)
[2020-02-28] MEDS: FLUCONAZOLE 200 MG/100 ML 100 ML IV SCH (16:59)
[2020-02-28] MEDS: SUCRALFATE 1 GM TABLET PO SCH ×2 (16:59→20:48)
[2020-02-28] MEDS ORDERED: CALCIUM GLUCONATE 4.6 MEQ in SODIUM CHLORIDE 0.9% 100 ML IV ONE (17:00)
[2020-02-28] MEDS: PANTOPRAZOLE 40 MG IV IVPush SCH ×2 (17:07→20:44)
[2020-02-28 17:33] LABS: MICROSCOPIC NOT IND
[2020-02-28] MEDS ORDERED: SODIUM CHLORIDE 0.9%, 500ML IVBOLUS ONE (19:00)
[2020-02-28 19:14] LABS: ANION GAP 16 mmol/L (5-15); CALCIUM 8.7 mg/dL (8.5-10.1); CHLORIDE 107 mmol/L (98-107); CREATININE 1.15 mg/dL (0.7-1.3)
[2020-02-28 19:18] LABS: TROPONIN I < 0.015 ng/mL (0.000-0.045)
[2020-02-28] MEDS: SODIUM CHLORIDE FLUSH 10ML SYR IVF SCH (20:44)
[2020-02-28] MEDS: LEVETIRACETAM 500 MG TABLET PO SCH (20:48)
[2020-02-28] MEDS: GABAPENTIN 300 MG CAPSULE PO SCH (20:48)
[2020-02-28 23:28] LABS: ANION GAP 5 mmol/L (5-15); CALCIUM 8.7 mg/dL (8.5-10.1); CHLORIDE 111 mmol/L (98-107); CREATININE 1.11 mg/dL (0.7-1.3)
[2020-02-29] MEDS ORDERED: INSULIN GLARGINE 100 UNITS/ML, PEN SQ-INSULIN SCH (00:30)
[2020-02-29 01:23] LABS: TROPONIN I < 0.015 ng/mL (0.000-0.045)
[2020-02-29 03:27] LABS: ANION GAP 8 mmol/L (5-15); CALCIUM 8.5 mg/dL (8.5-10.1); CHLORIDE 109 mmol/L (98-107)
[2020-02-29 03:28] LABS: CREATININE 0.99 mg/dL (0.7-1.3)
[2020-02-29 07:59] LABS: ANION GAP 10 mmol/L (5-15); CALCIUM 8.6 mg/dL (8.5-10.1); CHLORIDE 108 mmol/L (98-107); CREATININE 0.96 mg/dL (0.7-1.3)
[2020-02-29] MEDS: INSULIN LISPRO 100 UNITS/ML, PEN SQ-INSULIN SCH ×4 (08:50→21:00)
[2020-02-29] MEDS: SODIUM CHLORIDE FLUSH 10ML SYR IVF SCH ×2 (08:51→20:59)
[2020-02-29] MEDS: PANTOPRAZOLE 40 MG IV IVPush SCH ×2 (08:56→20:59)
[2020-02-29] MEDS: GABAPENTIN 300 MG CAPSULE PO SCH ×2 (08:57→20:15)
[2020-02-29] MEDS: LEVETIRACETAM 500 MG TABLET PO SCH ×2 (08:57→20:14)
[2020-02-29] MEDS: SUCRALFATE 1 GM TABLET PO SCH ×3 (08:57→20:15)
[2020-02-29] MEDS ORDERED: D5%-0.45NACL+KCL 20MEQ 1,000 ML IV SCH (13:28)
[2020-02-29] MEDS: FLUCONAZOLE 200 MG/100 ML 100 ML IV SCH (14:16)
[2020-02-29 15:47] VITALS: BP 105/56
[2020-02-29 18:57] VITALS: BP 114/72
[2020-02-29] MEDS: INSULIN GLARGINE 100 UNITS/ML, PEN SQ-INSULIN SCH (21:00)
[2020-03-01 01:28] VITALS: BP 121/76
[2020-03-01 04:30] LABS: BASOPHILS # (AUTO) 0.03 x10^3/uL (0-0.1); BASOPHILS % (AUTO) 0 % (0-1); EOSINOPHILS # (AUTO) 0.03 x10^3/uL (0-0.4); EOSINOPHILS % (AUTO) 0 % (1-7); LYMPHOCYTES # (AUTO) 2.53 x10^3/uL (1-3.4); LYMPHOCYTES % (AUTO) 33 % (22-44); MD NO; MEAN CORPUSCULAR HGB CONC 34.1 g/dL (33.2-36.2); MEAN CORPUSCULAR VOLUME 87.8 fL (81-97); MEAN PLATELET VOLUME 7.7 fL (7.4-10.4); MONOCYTES # (AUTO) 0.54 x10^3/uL (0.2-0.8); MONOCYTES % (AUTO) 7 % (2-9); NEUTROPHILS # (AUTO) 4.48 x10^3/uL (1.8-6.8); NEUTROPHILS % (AUTO) 59 % (42-75); PLATELET COUNT 315 x10^3/uL (130-400); RED BLOOD COUNT 3.84 x10^6/uL (4.38-5.82); RED CELL DISTRIBUTION WIDTH 16.1 % (9.4-14.8)
[2020-03-01 04:45] LABS: ALBUMIN 2.6 g/dL (3.4-5.0); ANION GAP 3 mmol/L (5-15); CALCIUM 8.4 mg/dL (8.5-10.1); CHLORIDE 104 mmol/L (98-107)
[2020-03-01 04:49] LABS: ALANINE AMINOTRANSFERASE 18 U/L (12-78); ALKALINE PHOSPHATASE 57 U/L (45-117); BILIRUBIN,TOTAL 0.6 mg/dL (0.2-1.0); CREATININE 0.86 mg/dL (0.7-1.3); TOTAL PROTEIN 5.7 g/dL (6.4-8.2)
[2020-03-01] MEDS: INSULIN LISPRO 100 UNITS/ML, PEN SQ-INSULIN SCH ×4 (07:00→21:21)
[2020-03-01 08:11] VITALS: BP 120/69
[2020-03-01] MEDS: GABAPENTIN 300 MG CAPSULE PO SCH ×2 (09:00→21:13)
[2020-03-01] MEDS: SODIUM CHLORIDE FLUSH 10ML SYR IVF SCH ×2 (09:00→21:19)
[2020-03-01] MEDS: SUCRALFATE 1 GM TABLET PO SCH ×3 (09:00→21:13)
[2020-03-01] MEDS: LEVETIRACETAM 500 MG TABLET PO SCH ×2 (09:00→21:19)
[2020-03-01] MEDS: PANTOPRAZOLE 40 MG IV IVPush SCH ×2 (09:19→21:19)
[2020-03-01] MEDS: INSULIN GLARGINE 100 UNITS/ML, PEN SQ-INSULIN SCH ×2 (09:20→21:20)
[2020-03-01] MEDS: FLUCONAZOLE 200 MG/100 ML 100 ML IV SCH (14:00)
[2020-03-01 14:16] VITALS: BP 122/74
[2020-03-01 19:37] VITALS: BP 113/73
[2020-03-02 01:05] VITALS: BP 96/61
[2020-03-02 06:30] LABS: BASOPHILS # (AUTO) 0.03 x10^3/uL (0-0.1); BASOPHILS % (AUTO) 1 % (0-1); EOSINOPHILS # (AUTO) 0.02 x10^3/uL (0-0.4); EOSINOPHILS % (AUTO) 0 % (1-7); LYMPHOCYTES # (AUTO) 2.32 x10^3/uL (1-3.4); LYMPHOCYTES % (AUTO) 37 % (22-44); MD NO; MEAN CORPUSCULAR HEMOGLOBIN 29.5 pg (27.5-34.5); MEAN CORPUSCULAR HGB CONC 33.2 g/dL (33.2-36.2); MEAN CORPUSCULAR VOLUME 88.8 fL (81-97); MEAN PLATELET VOLUME 7.8 fL (7.4-10.4); MONOCYTES # (AUTO) 0.49 x10^3/uL (0.2-0.8); MONOCYTES % (AUTO) 8 % (2-9); NEUTROPHILS # (AUTO) 3.34 x10^3/uL (1.8-6.8); NEUTROPHILS % (AUTO) 54 % (42-75); PLATELET COUNT 292 x10^3/uL (130-400); RED BLOOD COUNT 4.02 x10^6/uL (4.38-5.82)
[2020-03-02 06:40] LABS: ALANINE AMINOTRANSFERASE 20 U/L (12-78); ALBUMIN 2.6 g/dL (3.4-5.0); ANION GAP 7 mmol/L (5-15); CALCIUM 8.6 mg/dL (8.5-10.1); CHLORIDE 102 mmol/L (98-107)
[2020-03-02 06:43] LABS: ALKALINE PHOSPHATASE 59 U/L (45-117); BILIRUBIN,TOTAL 0.5 mg/dL (0.2-1.0); CREATININE 0.82 mg/dL (0.7-1.3); TOTAL PROTEIN 5.9 g/dL (6.4-8.2)
[2020-03-02] MEDS: INSULIN LISPRO 100 UNITS/ML, PEN SQ-INSULIN SCH ×2 (07:00→11:41)
[2020-03-02 07:04] VITALS: BP 96/61
[2020-03-02] MEDS: SODIUM CHLORIDE FLUSH 10ML SYR IVF SCH (07:56)
[2020-03-02] MEDS: GABAPENTIN 300 MG CAPSULE PO SCH (07:57)
[2020-03-02] MEDS: INSULIN GLARGINE 100 UNITS/ML, PEN SQ-INSULIN SCH (07:57)
[2020-03-02] MEDS: PANTOPRAZOLE 40 MG IV IVPush SCH (07:57)
[2020-03-02] MEDS: LEVETIRACETAM 500 MG TABLET PO SCH (07:57)
[2020-03-02] MEDS: SUCRALFATE 1 GM TABLET PO SCH (07:57)
[2020-03-02] MEDS ORDERED: POTASSIUM CHLORIDE 40 MEQ in SODIUM CHLORIDE 0.9% 500 ML IV ONE (13:00)
[2020-03-02] MEDS: FLUCONAZOLE 200 MG/100 ML 100 ML IV SCH (13:33)
[2020-03-02 13:58] VITALS: BP 113/72
[2020-03-02] MEDS ORDERED: POTASSIUM CHLORIDE 20 MEQ TAB.ER.PRT PO ONE (14:00)
[2020-03-02] MEDS ORDERED: POTASSIUM CHLORIDE 10% 40 MEQ/30 ML UDC PO ONE (16:45)
== END 2020-03-02 15:08 | DRG 638 ==
LOC: ED 11:16 → EDIP 12:53 → CCU 16:34 → 3N 02-29 11:04
PROVIDERS: ADMIT Internal Medicine; ATTEND Hospitalist
DX: E10.10 Type 1 diabetes mellitus with ketoacidosis without coma (principal); E87.1 Hypo-osmolality and hyponatremia; K92.0 Hematemesis; R65.10 Systemic inflammatory response syndrome (SIRS) of non-infectious origin without acute organ dysfunction; D64.9 Anemia, unspecified; D72.829 Elevated white blood cell count, unspecified; E87.5 Hyperkalemia; G40.909 Epilepsy, unspecified, not intractable, without status epilepticus; Z79.4 Long term (current) use of insulin; Z82.49 Family history of ischemic heart disease and other diseases of the circulatory system; Z83.3 Family history of diabetes mellitus; Z86.718 Personal history of other venous thrombosis and embolism; Z91.14 Patient's other noncompliance with medication regimen; Z90.49 Acquired absence of other specified parts of digestive tract; Z90.89 Acquired absence of other organs; Z88.0 Allergy status to penicillin; Z80.8 Family history of malignant neoplasm of other organs or systems
CPT/HCPCS: 36415; 71045; 80048; 80053; 81003; 82010; 82533; 82803; 82962; 83036; 83690; 83735; 84100; 84484; 85014; 85018; 85025; 87081; 93005; 99291; G0378; J0610; C9113; J1450; J1815; J3480; J7030; J7120

== ENCOUNTER 2020-03-17 21:45 | Emergency (ER) | payer MEDICAID, OTHER ==
[~2020-03-17] VITALS: Ht 185.4 cm; Wt 70.5 kg
[2020-03-17] MEDS ORDERED: SODIUM CHLORIDE 0.9% 1,000ML IVBOLUS ONE (22:00)
[2020-03-17 22:32] LABS: PH, VENOUS 7.392 pH (7.320-7.420)
[2020-03-17 22:35] LABS: BASOPHILS # (AUTO) 0.05 x10^3/uL (0-0.1); BASOPHILS % (AUTO) 1 % (0-1); EOSINOPHILS # (AUTO) 0.03 x10^3/uL (0-0.4); EOSINOPHILS % (AUTO) 1 % (1-7); LYMPHOCYTES # (AUTO) 2.44 x10^3/uL (1-3.4); LYMPHOCYTES % (AUTO) 42 % (22-44); MD NO; MEAN CORPUSCULAR HEMOGLOBIN 29.5 pg (27.5-34.5); MEAN CORPUSCULAR HGB CONC 33.2 g/dL (33.2-36.2); MEAN PLATELET VOLUME 8.7 fL (7.4-10.4); MONOCYTES # (AUTO) 0.38 x10^3/uL (0.2-0.8); MONOCYTES % (AUTO) 7 % (2-9); NEUTROPHILS # (AUTO) 2.85 x10^3/uL (1.8-6.8); NEUTROPHILS % (AUTO) 50 % (42-75); PLATELET COUNT 335 x10^3/uL (130-400); RED BLOOD COUNT 4.46 x10^6/uL (4.38-5.82)
[2020-03-17 22:46] LABS: ALANINE AMINOTRANSFERASE 22 U/L (12-78); ALBUMIN 3.6 g/dL (3.4-5.0); ANION GAP 7 mmol/L (5-15); CALCIUM 8.9 mg/dL (8.5-10.1); CHLORIDE 95 mmol/L (98-107)
[2020-03-17 22:49] LABS: ALKALINE PHOSPHATASE 78 U/L (45-117); BILIRUBIN,TOTAL 0.3 mg/dL (0.2-1.0); CREATININE 1.02 mg/dL (0.7-1.3); TOTAL PROTEIN 7.4 g/dL (6.4-8.2)
[2020-03-17 22:56] VITALS: BP 139/89
--- NOTE | 2020-03-17 22:57 | NUR ---
PT RESTING ON [facility] WITH X2 MANAGER ONLINE AT BS. MONITORING IN PLACE.
[2020-03-17] MEDS ORDERED: INSULIN REGULAR 100 UNITS/ML, 3ML VIAL IVPush ONE (23:00)
[2020-03-17] MEDS ORDERED: INSULIN SINGLE DOSE, ER ONE (23:02)
--- NOTE | 2020-03-17 23:08 | NUR ---
PT MEDICATED PER JAN. PROVIDED WARM BLANKET, DENIES FURTHER NEEDS AT THIS TIME.
== END 2020-03-18 01:10 | disposition home or self-care (01) ==
LOC: ED 22:42
DX: E11.65 Type 2 diabetes mellitus with hyperglycemia (principal); R09.89 Other specified symptoms and signs involving the circulatory and respiratory systems; Z72.9 Problem related to lifestyle, unspecified
CPT/HCPCS: 71045; 80053; 82803; 82962; 83690; 83930; 85025; 96361; 96374; 99284; J1815; J7030

== ENCOUNTER 2020-03-26 23:46 | Inpatient (IN) | payer OTHER, MEDICAID ==
[~2020-03-26] VITALS: Ht 182.9 cm; Wt 79.3 kg
[2020-03-27] MEDS ORDERED: SODIUM CHLORIDE 0.9% 1,000ML IVBOLUS ONE
[2020-03-27] MEDS ORDERED: ONDANSETRON 2MG/ML, 2ML IVPush ONE
[2020-03-27] MEDS ORDERED: ONDANSETRON 2MG/ML, 2ML ONE (00:03)
--- NOTE | 2020-03-27 00:19 | NUR ---
FSBS GREATER THAN 600.
--- NOTE | 2020-03-27 00:35 | NUR ---
LICENSED PROSTHETIST AT BEDSIDE.
--- NOTE | 2020-03-27 00:39 | NUR ---
PER TRANSCRIBING OPERATORS SUPERVISOR UNABLE TO DRAW AT THIS TIME, WILL RETURN FOR BLOOD DRAW.
--- NOTE | 2020-03-27 00:54 | NUR ---
EDGE GLUER AT BEDSIDE.
[2020-03-27 01:16] LABS: MEAN CORPUSCULAR HEMOGLOBIN 29.5 pg (27.5-34.5); MEAN CORPUSCULAR HGB CONC 32.5 g/dL (33.2-36.2); MEAN CORPUSCULAR VOLUME 90.8 fL (81-97); MEAN PLATELET VOLUME 9.4 fL (7.4-10.4); PLATELET COUNT 282 x10^3/uL (130-400); RED CELL DISTRIBUTION WIDTH 16.7 % (9.4-14.8)
[2020-03-27 01:25] LABS: ALANINE AMINOTRANSFERASE 23 U/L (12-78); ANION GAP 19 mmol/L (5-15); CALCIUM 8.8 mg/dL (8.5-10.1); CHLORIDE 99 mmol/L (98-107); CREATININE 1.39 mg/dL (0.7-1.3)
[2020-03-27 01:29] LABS: ALKALINE PHOSPHATASE 80 U/L (45-117); BILIRUBIN,TOTAL 0.9 mg/dL (0.2-1.0); TOTAL PROTEIN 7.5 g/dL (6.4-8.2); TROPONIN I < 0.015 ng/mL (0.000-0.045)
[2020-03-27] MEDS ORDERED: SODIUM CHLORIDE 0.9% 1,000 ML IV ONE (01:44)
[2020-03-27 01:47] LABS: ACETONE, SERUM Large (80mg/dL) (Negative)
[2020-03-27 01:48] LABS: BASOPHILS # (AUTO) 0.07 x10^3/uL (0-0.1); BASOPHILS % (AUTO) 0 % (0-1); EOSINOPHILS # (AUTO) 0.02 x10^3/uL (0-0.4); EOSINOPHILS % (AUTO) 0 % (1-7); LYMPHOCYTES # (AUTO) 1.74 x10^3/uL (1-3.4); LYMPHOCYTES % (AUTO) 8 % (22-44); MD SCAN; MONOCYTES # (AUTO) 1.46 x10^3/uL (0.2-0.8); MONOCYTES % (AUTO) 6 % (2-9); NEUTROPHILS # (AUTO) 19.64 x10^3/uL (1.8-6.8); NEUTROPHILS % (AUTO) 86 % (42-75)
[2020-03-27] MEDS ORDERED: D5%-0.45NACL+KCL 20MEQ 1,000 ML IV SCH (01:50)
[2020-03-27] MEDS ORDERED: SODIUM CHLORIDE 0.9% 1,000 ML IV SCH (01:50)
[2020-03-27] MEDS ORDERED: hydrALAzine 20 MG/ML, 1ML IVPush PRN (02:00)
[2020-03-27] MEDS ORDERED: REGULAR INSULIN 100 UNITS in SODIUM CHLORIDE 0.9% 99 ML IV PRN (02:00)
[2020-03-27] MEDS: REGULAR INSULIN 100 UNITS in SODIUM CHLORIDE 0.9% 99 ML IV PRN ×2 (02:06→03:08)
[2020-03-27] MEDS ORDERED: LEVETIRACETAM 500 MG in SODIUM CHLORIDE 0.9% 100 ML IV SCH (02:30)
[2020-03-27] MEDS ORDERED: PANTOPRAZOLE 40 MG IV IVPush SCH (02:30)
[2020-03-27 02:50] LABS: ANION GAP 20 mmol/L (5-15); CHLORIDE 102 mmol/L (98-107); CREATININE 1.36 mg/dL (0.7-1.3)
[2020-03-27] MEDS ORDERED: PANTOPRAZOLE 40 MG IV ONE (02:52)
--- NOTE | 2020-03-27 03:17 | NUR ---
CALL TO PHARMACY TO REQUEST KEPPRA INFUSION.
--- NOTE | 2020-03-27 03:44 | NUR ---
LEFT VM MESSAGE FOR HOSPITALIST TO RETURN CALL.
--- NOTE | 2020-03-27 04:04 | NUR ---
ATTEMPTED TO CALL ON-CALL HOSPITALIST FOR UPDATE ON LABS AND PT TACHY SUSTAINING AT 130'S, NO ANSWER AT THIS TIME. DISCUSSED WITH ERP, PER DR. JUDE ALFOSNO TO INCREASE RATE ON MAINTENANCE FLUIDS TO 250ML, AND CONTINUE INSULIN DRIP.
--- NOTE | 2020-03-27 04:16 | NUR ---
CALL TO HOSPITALIST DR. COTTON FOR UPDATE ON PT TO REPORT HR 130'S AND IF BLOOD GAS NEEDED. PER DR. OCTTON CONTINUE FLUIDS AT MAINTENANCE RATE AND ORDER VENOUS BLOOD GAS WITH NEXT BMP. ORDER PLACED AND VERIFIED.
--- NOTE | 2020-03-27 04:59 | NUR ---
FSBS 369, NO CHANGE PER PROTOCOL AT THIS TIME.
--- NOTE | 2020-03-27 05:55 | NUR ---
PT SLEEPING, AROUSABLE TO VERBAL COMMAND. HOURLY ROUNDING, GUARDS AT BEDSIDE.
[2020-03-27 06:14] LABS: PH, VENOUS 7.357 pH (7.320-7.420)
[2020-03-27 06:15] LABS: O2 FLOW ROOM AIR L/min
[2020-03-27 06:28] LABS: CALCIUM 8.5 mg/dL (8.5-10.1); CHLORIDE 110 mmol/L (98-107)
[2020-03-27 06:31] LABS: ANION GAP 12 mmol/L (5-15); CREATININE 1.36 mg/dL (0.7-1.3)
--- NOTE | 2020-03-27 07:02 | NUR ---
BEDSIDE REPORT GIVEN TO JOSIAS HARTMAN.
--- NOTE | 2020-03-27 07:08 | NUR ---
REPORT RECEIVED FROM MARCO ANTONIO HARTMAN.
--- NOTE | 2020-03-27 07:38 | NUR ---
REPORT GIVEN TO ONOFRE ADHIKARI RN. ALL QUESTIONS ANSWERED.
[2020-03-27 08:09] VITALS: BP 91/52
[2020-03-27] MEDS: SODIUM CHLORIDE 0.9% 1,000 ML IV SCH ×2 (08:28→18:35)
[2020-03-27] MEDS: PANTOPRAZOLE 40MG TABLET PO SCH ×2 (08:29→16:00)
[2020-03-27] MEDS: GABAPENTIN 300 MG CAPSULE PO SCH ×2 (08:30→20:42)
[2020-03-27] MEDS ORDERED: LEVETIRACETAM 500 MG TABLET PO SCH (09:00)
[2020-03-27] MEDS: LEVETIRACETAM 100 MG/ML ORAL SOL PO SCH ×3 (10:02→20:45)
[2020-03-27] MEDS: INSULIN GLARGINE 100 UNITS/ML, PEN SQ-INSULIN SCH ×2 (10:02→20:42)
[2020-03-27] MEDS: INSULIN LISPRO 100 UNITS/ML, PEN SQ-INSULIN SCH ×4 (10:02→20:41)
[2020-03-27] MEDS: SUCRALFATE 1 GM TABLET PO SCH ×2 (11:00→16:00)
[2020-03-27 12:20] VITALS: BP 111/73
[2020-03-27 12:41] LABS: MICROSCOPIC NOT IND
[2020-03-27 20:03] VITALS: BP 108/66
[2020-03-28 01:34] VITALS: BP 110/75
[2020-03-28] MEDS: SODIUM CHLORIDE 0.9% 1,000 ML IV SCH (04:31)
[2020-03-28] MEDS: PANTOPRAZOLE 40MG TABLET PO SCH ×3 (04:43→20:53)
[2020-03-28 05:56] LABS: BASOPHILS # (AUTO) 0.04 x10^3/uL (0-0.1); BASOPHILS % (AUTO) 0 % (0-1); EOSINOPHILS # (AUTO) 0.01 x10^3/uL (0-0.4); EOSINOPHILS % (AUTO) 0 % (1-7); LYMPHOCYTES # (AUTO) 1.78 x10^3/uL (1-3.4); LYMPHOCYTES % (AUTO) 13 % (22-44); MD NO; MEAN CORPUSCULAR HEMOGLOBIN 29.4 pg (27.5-34.5); MEAN CORPUSCULAR HGB CONC 32.7 g/dL (33.2-36.2); MEAN CORPUSCULAR VOLUME 89.8 fL (81-97); MEAN PLATELET VOLUME 8.5 fL (7.4-10.4); MONOCYTES # (AUTO) 0.68 x10^3/uL (0.2-0.8); MONOCYTES % (AUTO) 5 % (2-9); NEUTROPHILS # (AUTO) 11.66 x10^3/uL (1.8-6.8); NEUTROPHILS % (AUTO) 82 % (42-75); PLATELET COUNT 263 x10^3/uL (130-400); RED BLOOD COUNT 4.26 x10^6/uL (4.38-5.82); RED CELL DISTRIBUTION WIDTH 16.5 % (9.4-14.8)
[2020-03-28 06:00] LABS: ANION GAP 5 mmol/L (5-15); CALCIUM 8.3 mg/dL (8.5-10.1); CHLORIDE 107 mmol/L (98-107); CREATININE 0.93 mg/dL (0.7-1.3)
[2020-03-28] MEDS: SUCRALFATE 1 GM TABLET PO SCH (06:38)
[2020-03-28 06:51] VITALS: BP 137/86
[2020-03-28] MEDS: INSULIN LISPRO 100 UNITS/ML, PEN SQ-INSULIN SCH ×4 (07:00→20:52)
[2020-03-28] MEDS ORDERED: ACETAMINOPHEN 325 MG TABLET PO PRN (07:30)
[2020-03-28] MEDS: INSULIN GLARGINE 100 UNITS/ML, PEN SQ-INSULIN SCH ×2 (08:06→20:53)
[2020-03-28] MEDS: LEVETIRACETAM 100 MG/ML ORAL SOL PO SCH ×2 (08:06→20:52)
[2020-03-28] MEDS: GABAPENTIN 300 MG CAPSULE PO SCH ×2 (08:07→20:52)
[2020-03-28] MEDS: LACTOBACILLUS CHEW TABLET PO SCH ×3 (08:08→20:52)
[2020-03-28] MEDS: ENOXAPARIN 40 MG/0.4 ML SQ SCH ×2 (08:08→08:10)
[2020-03-28] MEDS: SUCRALFATE 1 GM/10 ML UDC PO SCH ×3 (10:58→20:53)
[2020-03-28 12:11] VITALS: BP 121/75
[2020-03-28 18:21] VITALS: BP 119/78
[2020-03-29 01:19] VITALS: BP 127/79
[2020-03-29] MEDS: ENOXAPARIN 40 MG/0.4 ML SQ SCH (03:22)
[2020-03-29 06:01] LABS: BASOPHILS # (AUTO) 0.01 x10^3/uL (0-0.1); BASOPHILS % (AUTO) 0 % (0-1); EOSINOPHILS # (AUTO) 0.01 x10^3/uL (0-0.4); EOSINOPHILS % (AUTO) 0 % (1-7); LYMPHOCYTES # (AUTO) 1.99 x10^3/uL (1-3.4); LYMPHOCYTES % (AUTO) 24 % (22-44); MD NO; MEAN CORPUSCULAR HEMOGLOBIN 29.5 pg (27.5-34.5); MEAN CORPUSCULAR VOLUME 89.3 fL (81-97); MEAN PLATELET VOLUME 8.6 fL (7.4-10.4); MONOCYTES % (AUTO) 7 % (2-9); NEUTROPHILS # (AUTO) 5.55 x10^3/uL (1.8-6.8); NEUTROPHILS % (AUTO) 68 % (42-75); PLATELET COUNT 252 x10^3/uL (130-400); RED BLOOD COUNT 4.54 x10^6/uL (4.38-5.82); RED CELL DISTRIBUTION WIDTH 16.1 % (9.4-14.8)
[2020-03-29 06:04] LABS: % IRON SATURATION 70 % (20-55); IRON LEVEL 176 mcg/dL (65-175); TOTAL IRON BINDING CAPACITY 251 mcg/dL (250-450)
[2020-03-29] MEDS: SODIUM CHLORIDE 0.9% 1,000 ML IV SCH ×2 (06:24→20:19)
[2020-03-29 06:52] VITALS: BP 135/82
[2020-03-29] MEDS: INSULIN LISPRO 100 UNITS/ML, PEN SQ-INSULIN SCH ×4 (07:00→20:18)
[2020-03-29] MEDS: LEVETIRACETAM 100 MG/ML ORAL SOL PO SCH ×2 (08:13→19:55)
[2020-03-29] MEDS: GABAPENTIN 300 MG CAPSULE PO SCH ×2 (08:13→19:55)
[2020-03-29] MEDS: LACTOBACILLUS CHEW TABLET PO SCH ×3 (08:13→19:55)
[2020-03-29] MEDS ORDERED: CHLORHEXIDINE 15 ML UDC ONE (08:24)
[2020-03-29] MEDS ORDERED: FENTANYL PF 100 MCG/2ML ONE ×2 (08:59→09:41)
[2020-03-29] MEDS ORDERED: MIDAZOLAM 1 MG/ML, 2ML ONE (08:59)
[2020-03-29] MEDS ORDERED: PROPOFOL 10 MG/ML, 20ML ONE (09:00)
[2020-03-29] MEDS ORDERED: SUCCINYLCHOLINE 20 MG/ML, 10ML ONE (09:00)
[2020-03-29] MEDS ORDERED: FENTANYL PF 100 MCG/2ML IV PRN (09:30)
[2020-03-29] MEDS ORDERED: ONDANSETRON 2MG/ML, 2ML IVPush PRN (09:30)
[2020-03-29] MEDS: INSULIN GLARGINE 100 UNITS/ML, PEN SQ-INSULIN SCH ×2 (10:17→20:19)
[2020-03-29] MEDS: SUCRALFATE 1 GM/10 ML UDC PO SCH ×2 (11:00→16:00)
[2020-03-29 14:14] VITALS: BP 131/88
[2020-03-29] MEDS: PANTOPRAZOLE 40MG TABLET PO SCH (15:44)
[2020-03-29 19:56] VITALS: BP 107/74
[2020-03-30 02:26] VITALS: BP 116/77
[2020-03-30 05:00] LABS: ANION GAP 7 mmol/L (5-15); CALCIUM 8.8 mg/dL (8.5-10.1); CHLORIDE 106 mmol/L (98-107)
[2020-03-30] MEDS: PANTOPRAZOLE 40MG TABLET PO SCH ×2 (05:01→15:59)
[2020-03-30 05:02] LABS: CREATININE 0.63 mg/dL (0.7-1.3)
[2020-03-30 06:46] VITALS: BP 127/84
[2020-03-30] MEDS: INSULIN LISPRO 100 UNITS/ML, PEN SQ-INSULIN SCH ×3 (07:00→16:25)
[2020-03-30] MEDS: ENOXAPARIN 40 MG/0.4 ML SQ SCH (08:07)
[2020-03-30] MEDS: SUCRALFATE 1 GM/10 ML UDC PO SCH ×3 (08:07→15:50)
[2020-03-30] MEDS: LEVETIRACETAM 100 MG/ML ORAL SOL PO SCH (08:07)
[2020-03-30] MEDS: INSULIN GLARGINE 100 UNITS/ML, PEN SQ-INSULIN SCH (08:07)
[2020-03-30] MEDS: GABAPENTIN 300 MG CAPSULE PO SCH (08:54)
[2020-03-30] MEDS: LACTOBACILLUS CHEW TABLET PO SCH ×2 (08:54→15:59)
[2020-03-30] MEDS ORDERED: ACID1TAB7 PO (10:57)
[2020-03-30] MEDS ORDERED: POTASSIUM CHLORIDE 40 MEQ in SODIUM CHLORIDE 0.9% 500 ML IV ONE (11:00)
[2020-03-30] MEDS: SODIUM CHLORIDE 0.9% 1,000 ML IV SCH (11:25)
[2020-03-30 12:05] VITALS: BP 120/82
== END 2020-03-30 18:10 | disposition home or self-care (01) | DRG 377 ==
LOC: ED 23:58 → EDIP 03-27 01:44 → 3N 03-27 08:06
PROVIDERS: ADMIT Internal Medicine; ATTEND Hospitalist
PROC: 0DB68ZX Excision of Stomach, Via Natural or Artificial Opening Endoscopic, Diagnostic (ICD-10-PCS; 2020-03-29)
PROC: 0DB58ZX Excision of Esophagus, Via Natural or Artificial Opening Endoscopic, Diagnostic (ICD-10-PCS; principal; 2020-03-29 16:00)
DX: K92.2 Gastrointestinal hemorrhage, unspecified (principal); E10.10 Type 1 diabetes mellitus with ketoacidosis without coma; N17.9 Acute kidney failure, unspecified; K21.0 Gastro-esophageal reflux disease with esophagitis; G40.909 Epilepsy, unspecified, not intractable, without status epilepticus; E87.5 Hyperkalemia; D72.829 Elevated white blood cell count, unspecified; K31.9 Disease of stomach and duodenum, unspecified; Z83.3 Family history of diabetes mellitus; Z82.49 Family history of ischemic heart disease and other diseases of the circulatory system; Z79.4 Long term (current) use of insulin; Z87.19 Personal history of other diseases of the digestive system; Z91.14 Patient's other noncompliance with medication regimen; Z91.19 Patient's noncompliance with other medical treatment and regimen; Z88.0 Allergy status to penicillin; Z90.49 Acquired absence of other specified parts of digestive tract; Z90.89 Acquired absence of other organs
CPT/HCPCS: 36415; 72110; 80048; 80053; 81003; 82010; 82803; 82962; 83036; 83540; 83550; 83690; 83735; 84100; 84484; 85025; 88305; 93005; 96361; 96374; 96375; 96376; G0378; J1650; J1815; J1953; J2250; J2405; J2704; J3010; J3480; C9113; J0330; J7030; J7040

== ENCOUNTER 2020-05-27 12:55 | Inpatient (IN) | payer MEDICAID, OTHER ==
[~2020-05-27] VITALS: Ht 175.3 cm; Wt 79.9 kg
[~2020-05-27 12:55] MED LIST changes: +ACID1TAB7 PO
[2020-05-27] MEDS ORDERED: TRAZ-175 PO (13:09)
[2020-05-27] MEDS ORDERED: SODIUM CHLORIDE 0.9% 1,000ML IVBOLUS ONE (13:30)
[2020-05-27 13:42] LABS: PH, VENOUS 7.311 pH (7.320-7.420)
[2020-05-27 13:43] LABS: FIO2 RA %
[2020-05-27] MEDS ORDERED: ONDANSETRON 2MG/ML, 2ML ONE ×2 (13:45→16:03)
[2020-05-27 13:54] LABS: ALANINE AMINOTRANSFERASE 35 U/L (12-78); ALBUMIN 4.6 g/dL (3.4-5.0); ANION GAP 18 mmol/L (5-15); CALCIUM 9.5 mg/dL (8.5-10.1); CHLORIDE 95 mmol/L (98-107); CREATININE 1.41 mg/dL (0.7-1.3)
--- NOTE | 2020-05-27 13:54 | NUR ---
Pt provided with Zofran, blanket and urinal. Fluids infusing. Guards at bedside.
[2020-05-27 13:56] LABS: ALKALINE PHOSPHATASE 81 U/L (45-117); BILIRUBIN,TOTAL 1.1 mg/dL (0.2-1.0); TOTAL PROTEIN 8.3 g/dL (6.4-8.2)
[2020-05-27] MEDS ORDERED: ONDANSETRON 2MG/ML, 2ML IVPush ONE (14:00)
[2020-05-27 14:03] LABS: BASOPHILS % (AUTO) 0 % (0-1); EOSINOPHILS % (AUTO) 0 % (1-7); LYMPHOCYTES # (AUTO) 1.29 x10^3/uL (1-3.4); LYMPHOCYTES % (AUTO) 9 % (22-44); MD NO; MEAN CORPUSCULAR HEMOGLOBIN 29.8 pg (27.5-34.5); MEAN CORPUSCULAR HGB CONC 33.7 g/dL (33.2-36.2); MEAN CORPUSCULAR VOLUME 88.5 fL (81-97); MEAN PLATELET VOLUME 10.1 fL (7.4-10.4); MONOCYTES # (AUTO) 0.45 x10^3/uL (0.2-0.8); MONOCYTES % (AUTO) 3 % (2-9); NEUTROPHILS # (AUTO) 12.94 x10^3/uL (1.8-6.8); NEUTROPHILS % (AUTO) 88 % (42-75); PLATELET COUNT 212 x10^3/uL (130-400); RED BLOOD COUNT 5.37 x10^6/uL (4.38-5.82); RED CELL DISTRIBUTION WIDTH 13.5 % (9.4-14.8)
--- NOTE | 2020-05-27 14:03 | NUR ---
EMS BG 546
[2020-05-27 14:30] LABS: MICROSCOPIC NOT IND
[2020-05-27 14:35] LABS: ACETONE, SERUM Large (80mg/dL) (Negative)
--- NOTE | 2020-05-27 14:55 | NUR ---
BG 537. Pt states nausea improved, still having mild emesis. Fluids infusing.
[2020-05-27] MEDS ORDERED: MELATONIN 5 MG TABLET PO PRN (15:30)
[2020-05-27] MEDS ORDERED: ACETAMINOPHEN 325 MG TABLET PO PRN (15:30)
[2020-05-27] MEDS ORDERED: hydrALAzine 20 MG/ML, 1ML IVPush PRN (15:30)
[2020-05-27] MEDS ORDERED: HYDROcodone/APAP 5/325 TABLET PO PRN (15:30)
[2020-05-27] MEDS ORDERED: POLYETHYLENE GLYCOL 17 GM PACKET PO PRN (15:30)
[2020-05-27] MEDS ORDERED: INSULIN REGULAR 100 UNITS/ML, 3ML VIAL IVPush ONE ×2 (15:30→18:00)
[2020-05-27] MEDS ORDERED: BISACODYL 10 MG SUPP PR PRN (15:30)
[2020-05-27] MEDS ORDERED: ONDANSETRON 2MG/ML, 2ML IVPush PRN (15:30)
[2020-05-27] MEDS ORDERED: INSULIN LISPRO 100 UNITS/ML, PEN SQ-INSULIN SCH ×2 (16:00→21:00)
[2020-05-27] MEDS ORDERED: SUCRALFATE 1 GM TABLET PO SCH (16:00)
[2020-05-27] MEDS ORDERED: HEPARIN 5,000 UNITS/ML, 1ML ONE (16:01)
[2020-05-27 16:03] LABS: ANION GAP 20 mmol/L (5-15); CALCIUM 9.8 mg/dL (8.5-10.1); CHLORIDE 99 mmol/L (98-107)
[2020-05-27] MEDS: SODIUM CHLORIDE 0.9% 1,000 ML IV SCH (16:06)
[2020-05-27] MEDS: HEPARIN 5,000 UNITS/ML, 1ML SQ SCH ×2 (16:06→23:31)
[2020-05-27 16:09] LABS: CREATININE 1.43 mg/dL (0.7-1.3); FREE T4 (FREE THYROXINE) 1.38 ng/dL (0.76-1.46); TROPONIN I < 0.015 ng/mL (0.000-0.045)
--- NOTE | 2020-05-27 16:11 | NUR ---
Report provided to Lilia. Zofran given for nausea. Fluids infusing.
[2020-05-27 16:20] LABS: HCT (SEDRATE) 47.5 % (39.2-51.8)
[2020-05-27 16:53] VITALS: BP 111/61
[2020-05-27] MEDS: SUCRALFATE 1 GM TABLET PO SCH ×2 (17:16→20:22)
[2020-05-27] MEDS: PANTOPRAZOLE 40 MG IV IVPush SCH (17:46)
[2020-05-27 18:26] VITALS: BP 122/81
[2020-05-27 19:58] LABS: TROPONIN I < 0.015 ng/mL (0.000-0.045)
[2020-05-27] MEDS: ONDANSETRON 2MG/ML, 2ML IVPush PRN (20:06)
[2020-05-27] MEDS: TRAZODONE 50MG TABLET PO SCH (20:22)
[2020-05-27] MEDS: GABAPENTIN 300 MG CAPSULE PO SCH (20:22)
[2020-05-27 20:25] VITALS: BP 122/81
[2020-05-27 20:41] VITALS: BP 112/64
[2020-05-27] MEDS ORDERED: LEVETIRACETAM 500 MG TABLET PO SCH (21:00)
[2020-05-27] MEDS ORDERED: PANTOPRAZOLE 40MG TABLET PO SCH (21:00)
[2020-05-27] MEDS ORDERED: LEVETIRACETAM 500 MG in SODIUM CHLORIDE 0.9% 100 ML IV ONE (21:00)
[2020-05-27] MEDS: INSULIN LISPRO 100 UNITS/ML, PEN SQ-INSULIN SCH (21:04)
[2020-05-27] MEDS: morphine SULFATE 10 MG/ML, 1ML IVPush PRN (21:52)
[2020-05-27 23:33] VITALS: BP 120/82
[2020-05-28 00:03] VITALS: BP 125/79
[2020-05-28] MEDS: SODIUM CHLORIDE 0.9% 1,000 ML IV SCH ×3 (00:36→14:24)
[2020-05-28 01:19] VITALS: BP 125/79
[2020-05-28] MEDS: INSULIN LISPRO 100 UNITS/ML, PEN SQ-INSULIN SCH ×2 (07:00→11:00)
[2020-05-28 07:15] VITALS: BP 129/81
[2020-05-28 07:43] LABS: MEAN CORPUSCULAR HEMOGLOBIN 29.4 pg (27.5-34.5); MEAN CORPUSCULAR HGB CONC 32.2 g/dL (33.2-36.2); MEAN CORPUSCULAR VOLUME 91.3 fL (81-97); MEAN PLATELET VOLUME 9.5 fL (7.4-10.4); PLATELET COUNT 233 x10^3/uL (130-400); RED BLOOD COUNT 5.58 x10^6/uL (4.38-5.82); RED CELL DISTRIBUTION WIDTH 13.9 % (9.4-14.8)
[2020-05-28 07:52] LABS: ANION GAP 19 mmol/L (5-15); CALCIUM 10.2 mg/dL (8.5-10.1); CHLORIDE 106 mmol/L (98-107); CREATININE 1.72 mg/dL (0.7-1.3)
[2020-05-28] MEDS: PANTOPRAZOLE 40 MG IV IVPush SCH (08:00)
[2020-05-28] MEDS: HEPARIN 5,000 UNITS/ML, 1ML SQ SCH ×3 (08:01→23:30)
[2020-05-28 08:18] LABS: BASOPHILS # (AUTO) 0.03 x10^3/uL (0-0.1); BASOPHILS % (AUTO) 0 % (0-1); EOSINOPHILS % (AUTO) 0 % (1-7); LYMPHOCYTES # (AUTO) 1.55 x10^3/uL (1-3.4); LYMPHOCYTES % (AUTO) 7 % (22-44); MD SCAN; MONOCYTES # (AUTO) 1.09 x10^3/uL (0.2-0.8); MONOCYTES % (AUTO) 5 % (2-9); NEUTROPHILS # (AUTO) 18.93 x10^3/uL (1.8-6.8); NEUTROPHILS % (AUTO) 88 % (42-75)
[2020-05-28] MEDS ORDERED: INSULIN REGULAR 100 UNITS/ML, 3ML VIAL IVPush STA (08:37)
[2020-05-28] MEDS: GABAPENTIN 300 MG CAPSULE PO SCH ×2 (09:00→21:00)
[2020-05-28] MEDS: SUCRALFATE 1 GM TABLET PO SCH ×3 (09:00→20:45)
[2020-05-28] MEDS: LEVETIRACETAM 500 MG in SODIUM CHLORIDE 0.9% 100 ML IV SCH ×2 (09:28→21:59)
[2020-05-28] MEDS ORDERED: INSULIN REGULAR 100 UNITS/ML, 3ML VIAL IV STA (09:55)
[2020-05-28 10:09] LABS: ANION GAP 23 mmol/L (5-15); CHLORIDE 104 mmol/L (98-107); CREATININE 1.88 mg/dL (0.7-1.3)
[2020-05-28 10:22] VITALS: BP 119/82
[2020-05-28 11:42] LABS: FIO2 ROOM AIR %
[2020-05-28] MEDS ORDERED: INSULIN REGULAR 100 UNITS/ML, 3ML VIAL IVPush ONE (12:30)
[2020-05-28 13:37] VITALS: BP 144/88
[2020-05-28 13:46] LABS: ANION GAP 17 mmol/L (5-15); CALCIUM 9.6 mg/dL (8.5-10.1); CHLORIDE 108 mmol/L (98-107)
[2020-05-28 13:51] LABS: CREATININE 1.98 mg/dL (0.7-1.3); TROPONIN I < 0.015 ng/mL (0.000-0.045)
[2020-05-28] MEDS: ONDANSETRON 2MG/ML, 2ML IVPush PRN ×2 (14:23→20:53)
[2020-05-28] MEDS: LIDODERM 5% PATCH TD PRN (14:24)
[2020-05-28] MEDS: REGULAR INSULIN 100 UNITS in SODIUM CHLORIDE 0.9% 99 ML IV PRN ×2 (14:48→23:39)
[2020-05-28] MEDS ORDERED: VANCOMYCIN PER PHARMACY MC PRN (16:30)
[2020-05-28] MEDS ORDERED: PIPERACILLIN/TAZO/PMX 3.375GM 50 ML IV SCH (16:30)
[2020-05-28] MEDS ORDERED: VANCOMYCIN PMX 1GM/200ML 200 ML IV ONE (16:30)
[2020-05-28] MEDS ORDERED: VANCOMYCIN 2,000 MG in SODIUM CHLORIDE 0.9% 500 ML IV ONE (17:00)
[2020-05-28] MEDS ORDERED: PHARMACOKINETIC MONITORING MC PRN (17:00)
[2020-05-28] MEDS ORDERED: PHARMACOKINETIC CONSULTATION MC ONE (17:00)
[2020-05-28] MEDS: CEFTRIAXONE PMX 1GM/50ML 50 ML IV SCH (17:30)
[2020-05-28 19:31] LABS: ANION GAP 21 mmol/L (5-15); CALCIUM 9.5 mg/dL (8.5-10.1); CHLORIDE 110 mmol/L (98-107); CREATININE 1.81 mg/dL (0.7-1.3)
[2020-05-28 19:35] LABS: TROPONIN I < 0.015 ng/mL (0.000-0.045)
[2020-05-28] MEDS: TRAZODONE 50MG TABLET PO SCH (21:00)
[2020-05-28 21:36] LABS: AMPHETAMINE SCREEN, URINE Negative (Negative); BARBITURATE SCREEN, URINE Negative (Negative); BENZODIAZEPINE SCREEN, URINE Negative (Negative); CANNABINOID SCREEN, URINE Negative (Negative); COCAINE SCREEN, URINE Negative (Negative); METHADONE SCREEN, URINE Negative (Negative); OPIATE SCREEN, URINE Negative (Negative)
[2020-05-28] MEDS: METRONIDAZOLE PMX 500MG/100ML 100 ML IVPB SCH (21:59)
[2020-05-28] MEDS ORDERED: 0.9 % SODIUM CHLORIDE 10 ML VIAL IV STA (22:41)
[2020-05-28] MEDS ORDERED: SODIUM CHLORIDE 0.9%, 500ML IVBOLUS ONE (23:00)
[2020-05-28] MEDS: morphine SULFATE 10 MG/ML, 1ML IVPush PRN (23:06)
[2020-05-29 00:18] LABS: ANION GAP 9 mmol/L (5-15); CALCIUM 9.3 mg/dL (8.5-10.1); CHLORIDE 115 mmol/L (98-107); CREATININE 1.81 mg/dL (0.7-1.3)
[2020-05-29 00:22] LABS: TROPONIN I < 0.015 ng/mL (0.000-0.045)
[2020-05-29] MEDS ORDERED: D5%-0.45NACL+KCL 20MEQ 1,000 ML IV SCH (00:30)
[2020-05-29 04:28] LABS: MEAN CORPUSCULAR HEMOGLOBIN 29.7 pg (27.5-34.5); MEAN CORPUSCULAR HGB CONC 33.2 g/dL (33.2-36.2); MEAN CORPUSCULAR VOLUME 89.3 fL (81-97); PLATELET COUNT 243 x10^3/uL (130-400); RED BLOOD COUNT 5.48 x10^6/uL (4.38-5.82); RED CELL DISTRIBUTION WIDTH 13.6 % (9.4-14.8)
[2020-05-29 04:38] LABS: ALANINE AMINOTRANSFERASE 28 U/L (12-78); ANION GAP 10 mmol/L (5-15); CALCIUM 9.3 mg/dL (8.5-10.1); CHLORIDE 118 mmol/L (98-107); CREATININE 1.52 mg/dL (0.7-1.3)
[2020-05-29 04:40] LABS: ALKALINE PHOSPHATASE 82 U/L (45-117); BILIRUBIN,TOTAL 0.5 mg/dL (0.2-1.0); TOTAL PROTEIN 7.4 g/dL (6.4-8.2)
[2020-05-29 04:43] LABS: MD YES
[2020-05-29] MEDS: METRONIDAZOLE PMX 500MG/100ML 100 ML IVPB SCH ×3 (04:43→21:19)
[2020-05-29 04:46] LABS: <PLATELET ESTIMATE> ADEQUATE; <PLT MORPHOLOGY> NORMAL PLT MORPH; <RBC MORPHOLOGY> NORMAL; BAND#(MANUAL) 0.76 x10^3/uL; BANDS%(MANUAL) 7 % (0-7); LYMPH#(MANUAL) 1.42 x10^3/uL (1-3.4); LYMPHS% (MANUAL) 13 % (22-44); MONOS#(MANUAL) 1.31 x10^3/uL (0.3-2.7); MONOS% (MANUAL) 12 % (2-9); REACTIVE LYMPHS # (MANUAL) 0.11 x10^3/uL (0-0); REACTIVE LYMPHS % (MANUAL) 1 % (0-0); SEGS% (MANUAL) 67 % (42-75)
[2020-05-29] MEDS ORDERED: INSULIN GLARGINE 100 UNITS/ML, PEN SQ-INSULIN ONE (05:00)
[2020-05-29] MEDS ORDERED: VANCOMYCIN 1,500 MG in SODIUM CHLORIDE 0.9% 250 ML IV SCH (05:00)
[2020-05-29] MEDS: INSULIN LISPRO 100 UNITS/ML, PEN SQ-INSULIN SCH ×4 (07:51→21:49)
[2020-05-29] MEDS: LEVETIRACETAM 500 MG in SODIUM CHLORIDE 0.9% 100 ML IV SCH ×2 (08:31→21:19)
[2020-05-29] MEDS: PANTOPRAZOLE 40 MG IV IVPush SCH (08:31)
[2020-05-29] MEDS: HEPARIN 5,000 UNITS/ML, 1ML SQ SCH ×3 (08:31→22:46)
[2020-05-29] MEDS: GABAPENTIN 300 MG CAPSULE PO SCH ×2 (08:37→21:18)
[2020-05-29] MEDS: SUCRALFATE 1 GM TABLET PO SCH ×2 (08:37→16:22)
[2020-05-29] MEDS: ONDANSETRON 2MG/ML, 2ML IVPush PRN ×3 (11:26→21:48)
[2020-05-29] MEDS: SODIUM CHLORIDE 0.45% 1,000 ML IV SCH (13:24)
[2020-05-29] MEDS: POTASSIUM ACID PHOSPHATE 500 MG TABLET.SOL PO SCH ×2 (13:37→21:17)
[2020-05-29] MEDS: CEFTRIAXONE PMX 1GM/50ML 50 ML IV SCH (17:47)
[2020-05-29] MEDS: VANCOMYCIN 1,300 MG in SODIUM CHLORIDE 0.9% 250 ML IV SCH (18:38)
[2020-05-29 19:43] VITALS: BP 127/76
[2020-05-29] MEDS: SUCRALFATE 1 GM/10 ML UDC PO SCH (21:18)
[2020-05-29] MEDS: TRAZODONE 50MG TABLET PO SCH (21:18)
[2020-05-30 00:29] VITALS: BP 130/80
[2020-05-30] MEDS: POTASSIUM ACID PHOSPHATE 500 MG TABLET.SOL PO SCH ×2 (02:36→08:59)
[2020-05-30] MEDS: SODIUM CHLORIDE 0.45% 1,000 ML IV SCH ×3 (02:36→17:59)
[2020-05-30] MEDS: VANCOMYCIN 1,300 MG in SODIUM CHLORIDE 0.9% 250 ML IV SCH ×2 (05:43→17:50)
[2020-05-30] MEDS: METRONIDAZOLE PMX 500MG/100ML 100 ML IVPB SCH ×3 (06:39→21:33)
[2020-05-30 07:01] LABS: BASOPHILS # (AUTO) 0.03 x10^3/uL (0-0.1); BASOPHILS % (AUTO) 0 % (0-1); EOSINOPHILS % (AUTO) 0 % (1-7); LYMPHOCYTES # (AUTO) 1.44 x10^3/uL (1-3.4); LYMPHOCYTES % (AUTO) 15 % (22-44); MD NO; MEAN CORPUSCULAR HEMOGLOBIN 29.4 pg (27.5-34.5); MEAN CORPUSCULAR HGB CONC 32.6 g/dL (33.2-36.2); MEAN CORPUSCULAR VOLUME 90.3 fL (81-97); MEAN PLATELET VOLUME 8.7 fL (7.4-10.4); MONOCYTES # (AUTO) 0.71 x10^3/uL (0.2-0.8); MONOCYTES % (AUTO) 8 % (2-9); NEUTROPHILS # (AUTO) 7.21 x10^3/uL (1.8-6.8); NEUTROPHILS % (AUTO) 77 % (42-75); PLATELET COUNT 185 x10^3/uL (130-400); RED BLOOD COUNT 5.38 x10^6/uL (4.38-5.82); RED CELL DISTRIBUTION WIDTH 13.7 % (9.4-14.8)
[2020-05-30 07:10] LABS: ALANINE AMINOTRANSFERASE 26 U/L (12-78); ALBUMIN 3.7 g/dL (3.4-5.0); ANION GAP 17 mmol/L (5-15); CALCIUM 9.2 mg/dL (8.5-10.1); CHLORIDE 103 mmol/L (98-107)
[2020-05-30 07:13] LABS: ALKALINE PHOSPHATASE 82 U/L (45-117); BILIRUBIN,TOTAL 0.9 mg/dL (0.2-1.0); CREATININE 1.47 mg/dL (0.7-1.3); TOTAL PROTEIN 7.2 g/dL (6.4-8.2)
[2020-05-30 07:15] VITALS: BP 129/81
[2020-05-30 07:27] LABS: VANCOMYCIN,TROUGH 29.7 mcg/mL (5.0-10.0)
[2020-05-30] MEDS ORDERED: REGADENOSON 0.4 MG/5 ML SYRINGE ONE (08:24)
[2020-05-30] MEDS: ONDANSETRON 2MG/ML, 2ML IVPush PRN (08:47)
[2020-05-30] MEDS: SUCRALFATE 1 GM/10 ML UDC PO SCH ×3 (08:52→20:14)
[2020-05-30] MEDS: PANTOPRAZOLE 40 MG IV IVPush SCH (08:55)
[2020-05-30] MEDS: GABAPENTIN 300 MG CAPSULE PO SCH ×2 (08:58→20:15)
[2020-05-30] MEDS ORDERED: INSULIN GLARGINE 100 UNITS/ML, PEN SQ-INSULIN SCH (09:00)
[2020-05-30] MEDS: INSULIN LISPRO 100 UNITS/ML, PEN SQ-INSULIN SCH ×4 (09:00→20:14)
[2020-05-30] MEDS: HEPARIN 5,000 UNITS/ML, 1ML SQ SCH ×2 (09:04→16:16)
[2020-05-30] MEDS: LEVETIRACETAM 500 MG in SODIUM CHLORIDE 0.9% 100 ML IV SCH ×2 (09:05→20:13)
[2020-05-30 12:50] VITALS: BP 130/80
[2020-05-30] MEDS: CEFTRIAXONE PMX 1GM/50ML 50 ML IV SCH (17:12)
[2020-05-30 20:10] VITALS: BP 123/78
[2020-05-30] MEDS: TRAZODONE 50MG TABLET PO SCH (20:14)
[2020-05-31] MEDS: HEPARIN 5,000 UNITS/ML, 1ML SQ SCH ×3 (00:47→17:52)
[2020-05-31 00:52] VITALS: BP 125/81
[2020-05-31] MEDS: SODIUM CHLORIDE 0.45% 1,000 ML IV SCH (03:20)
[2020-05-31] MEDS: METRONIDAZOLE PMX 500MG/100ML 100 ML IVPB SCH (05:07)
[2020-05-31 05:17] LABS: BASOPHILS # (AUTO) 0.07 x10^3/uL (0-0.1); BASOPHILS % (AUTO) 1 % (0-1); EOSINOPHILS % (AUTO) 0 % (1-7); LYMPHOCYTES # (AUTO) 1.48 x10^3/uL (1-3.4); LYMPHOCYTES % (AUTO) 18 % (22-44); MD NO; MEAN CORPUSCULAR HEMOGLOBIN 29.4 pg (27.5-34.5); MEAN CORPUSCULAR HGB CONC 32.7 g/dL (33.2-36.2); MEAN CORPUSCULAR VOLUME 89.9 fL (81-97); MONOCYTES # (AUTO) 0.53 x10^3/uL (0.2-0.8); MONOCYTES % (AUTO) 6 % (2-9); NEUTROPHILS # (AUTO) 6.18 x10^3/uL (1.8-6.8); NEUTROPHILS % (AUTO) 75 % (42-75); PLATELET COUNT 194 x10^3/uL (130-400); RED BLOOD COUNT 5.26 x10^6/uL (4.38-5.82); RED CELL DISTRIBUTION WIDTH 13.3 % (9.4-14.8)
[2020-05-31 05:27] LABS: ANION GAP 18 mmol/L (5-15); CALCIUM 8.8 mg/dL (8.5-10.1); CHLORIDE 99 mmol/L (98-107)
[2020-05-31 05:29] LABS: CREATININE 1.38 mg/dL (0.7-1.3); VANCOMYCIN,TROUGH 6.8 mcg/mL (5.0-10.0)
[2020-05-31] MEDS ORDERED: VANCOMYCIN 1,500 MG in SODIUM CHLORIDE 0.9% 250 ML IV SCH (06:00)
[2020-05-31 06:59] VITALS: BP 136/80
[2020-05-31] MEDS: INSULIN GLARGINE 100 UNITS/ML, PEN SQ-INSULIN SCH (08:37)
[2020-05-31] MEDS: INSULIN LISPRO 100 UNITS/ML, PEN SQ-INSULIN SCH ×4 (08:38→23:00)
[2020-05-31] MEDS: PANTOPRAZOLE 40 MG IV IVPush SCH (08:41)
[2020-05-31] MEDS: SUCRALFATE 1 GM/10 ML UDC PO SCH ×3 (08:44→22:33)
[2020-05-31] MEDS: GABAPENTIN 300 MG CAPSULE PO SCH ×2 (08:45→21:00)
[2020-05-31] MEDS: LEVETIRACETAM 500 MG in SODIUM CHLORIDE 0.9% 100 ML IV SCH ×2 (08:50→22:32)
[2020-05-31] MEDS: CLINDAMYCIN PMX 600MG/50ML 50 ML IV SCH ×2 (10:02→17:52)
[2020-05-31 12:08] VITALS: BP 116/75
[2020-05-31] MEDS: TRAZODONE 50MG TABLET PO SCH (21:00)
[2020-05-31] MEDS ORDERED: INSULIN GLARGINE 100 UNITS/ML, PEN SQ-INSULIN SCH (21:00)
[2020-05-31 22:30] VITALS: BP 124/83
[2020-05-31] MEDS: METOPROLOL TARTRATE 25 MG TAB PO SCH (22:34)
[2020-05-31] MEDS: LIDODERM 5% PATCH TD PRN (22:37)
[2020-06-01 01:59] VITALS: BP 124/81
[2020-06-01] MEDS: CLINDAMYCIN PMX 600MG/50ML 50 ML IV SCH ×2 (01:59→09:42)
[2020-06-01] MEDS: HEPARIN 5,000 UNITS/ML, 1ML SQ SCH ×2 (01:59→14:00)
[2020-06-01] MEDS: METOPROLOL TARTRATE 25 MG TAB PO SCH (06:12)
[2020-06-01 06:18] VITALS: BP 128/85
[2020-06-01 07:07] VITALS: BP 121/78
[2020-06-01] MEDS: INSULIN GLARGINE 100 UNITS/ML, PEN SQ-INSULIN SCH (08:32)
[2020-06-01] MEDS: INSULIN LISPRO 100 UNITS/ML, PEN SQ-INSULIN SCH ×2 (08:32→12:40)
[2020-06-01] MEDS: SUCRALFATE 1 GM/10 ML UDC PO SCH (08:33)
[2020-06-01] MEDS: GABAPENTIN 300 MG CAPSULE PO SCH (08:33)
[2020-06-01] MEDS: PANTOPRAZOLE 40 MG IV IVPush SCH (08:33)
[2020-06-01] MEDS: LEVETIRACETAM 500 MG in SODIUM CHLORIDE 0.9% 100 ML IV SCH (11:04)
[2020-06-01] MEDS ORDERED: METO25TA35 PO (12:43)
[2020-06-01] MEDS ORDERED: CLIN300C8 PO (12:43)
[2020-06-01] MEDS ORDERED: METOPROLOL TARTRATE 25 MG TAB PO SCH (18:00)
[2020-06-01] MEDS ORDERED: INSULIN GLARGINE 100 UNITS/ML, PEN SQ-INSULIN SCH (21:00)
== END 2020-06-01 16:10 | disposition home or self-care (01) | DRG 871 ==
LOC: ED 13:35 → SUATTDRO 14:46 → 3N 16:46 → CCU 05-28 13:54 → 5SO 05-29 15:41
PROVIDERS: ADMIT Hospitalist; ATTEND Hospitalist
DX: A41.9 Sepsis, unspecified organism (principal); E10.10 Type 1 diabetes mellitus with ketoacidosis without coma; N17.0 Acute kidney failure with tubular necrosis; E87.0 Hyperosmolality and hypernatremia; N13.30 Unspecified hydronephrosis; E10.22 Type 1 diabetes mellitus with diabetic chronic kidney disease; E83.39 Other disorders of phosphorus metabolism; E86.0 Dehydration; E87.5 Hyperkalemia; G40.909 Epilepsy, unspecified, not intractable, without status epilepticus; K76.0 Fatty (change of) liver, not elsewhere classified; M16.12 Unilateral primary osteoarthritis, left hip; N18.9 Chronic kidney disease, unspecified; K29.70 Gastritis, unspecified, without bleeding; K20.9 Esophagitis, unspecified; M43.16 Spondylolisthesis, lumbar region; Z79.4 Long term (current) use of insulin; Z79.899 Other long term (current) drug therapy; Z91.19 Patient's noncompliance with other medical treatment and regimen; Z91.14 Patient's other noncompliance with medication regimen; Z88.0 Allergy status to penicillin
CPT/HCPCS: 36415; 36600; 71045; 71250; 74176; 78452; 80048; 80053; 80202; 80307; 81003; 82010; 82803; 82947; 82962; 83036; 83690; 83735; 84100; 84439; 84443; 84484; 85025; 85651; 87040; 87081; 93005; 93017; 96361; 96374; 96375; 96376; G0378; J0696; J1644; J1815; J1953; J2405; J2785; J3370; A9502; C9113; J2270; J3480; J7030; J7040; J7050

== ENCOUNTER 2020-06-16 21:10 | Observation (INO) | payer MEDICAID, OTHER ==
[~2020-06-16] VITALS: Ht 185.4 cm; Wt 61.3 kg
[~2020-06-16 21:10] MED LIST changes: +CLIN300C8 PO; +METO25TA35 PO; +TRAZ-175 PO
--- NOTE | 2020-06-16 21:20 | NUR ---
Pt arrives from [facility] with two officers present. Per EMS and police, pt has had multiple visits to hospital for uncontrolled type I diabetes. Police reports he is non-compliant in [facility]. EMS reports pt was vomiting on scene with BS of 398. PO zofran given. Pt is alert and oriented. Pt reports nausea and a dry mouth. Pt reports he has "a slew of health problems". Pt noted to be tachy on monitor - HR 115-135.
[2020-06-16] MEDS ORDERED: ONDANSETRON 2MG/ML, 2ML IVPush ONE (21:30)
[2020-06-16] MEDS ORDERED: SODIUM CHLORIDE 0.9% 1,000ML IVBOLUS ONE (21:30)
[2020-06-16 21:46] LABS: ACETONE, SERUM Large (80mg/dL) (Negative); BASOPHILS # (AUTO) 0.01 x10^3/uL (0-0.1); BASOPHILS % (AUTO) 0 % (0-1); EOSINOPHILS % (AUTO) 0 % (1-7); LYMPHOCYTES % (AUTO) 24 % (22-44); MD NO; MEAN CORPUSCULAR HEMOGLOBIN 29.3 pg (27.5-34.5); MEAN CORPUSCULAR HGB CONC 32.7 g/dL (33.2-36.2); MEAN CORPUSCULAR VOLUME 89.5 fL (81-97); MEAN PLATELET VOLUME 8.7 fL (7.4-10.4); MONOCYTES # (AUTO) 0.28 x10^3/uL (0.2-0.8); MONOCYTES % (AUTO) 4 % (2-9); NEUTROPHILS # (AUTO) 5.23 x10^3/uL (1.8-6.8); NEUTROPHILS % (AUTO) 72 % (42-75); PLATELET COUNT 408 x10^3/uL (130-400); RED BLOOD COUNT 5.46 x10^6/uL (4.38-5.82); RED CELL DISTRIBUTION WIDTH 14.1 % (9.4-14.8)
[2020-06-16 21:52] LABS: ALANINE AMINOTRANSFERASE 38 U/L (12-78); ANION GAP 16 mmol/L (5-15); CALCIUM 9.9 mg/dL (8.5-10.1); CHLORIDE 97 mmol/L (98-107); CREATININE 1.21 mg/dL (0.7-1.3)
[2020-06-16 21:54] LABS: ALKALINE PHOSPHATASE 88 U/L (45-117); BILIRUBIN,TOTAL 0.8 mg/dL (0.2-1.0); TOTAL PROTEIN 8.4 g/dL (6.4-8.2)
[2020-06-16] MEDS ORDERED: ONDANSETRON 2MG/ML, 2ML ONE (21:54)
--- NOTE | 2020-06-16 22:09 | NUR ---
PIV placed. Fluids started. Zofran given. VS retaken. Urinal at bedside.
--- NOTE | 2020-06-16 23:22 | NUR ---
BS via fingerstick 390 after 1L. Pt reports feeling better, but refuses to drink water because it's not cold enough. Pt remains on pulse ox/HR monitor.
[2020-06-16] MEDS ORDERED: INSULIN SINGLE DOSE, ER SQ-INSULIN ONE (23:30)
[2020-06-16] MEDS ORDERED: INSULIN SINGLE DOSE, ER ONE (23:58)
--- NOTE | 2020-06-17 00:53 | NUR ---
BS 322 after 2L. Pt remains tachy with HR 113-117. Pt has urinated twice in bedside urinals.
[2020-06-17] MEDS ORDERED: ONDANSETRON 2MG/ML, 2ML IVPush ONE (01:00)
--- NOTE | 2020-06-17 01:15 | NUR ---
TP RN: HOSPITAL BED REQUESTED
--- NOTE | 2020-06-17 01:35 | NUR ---
Spoke with pt's alirio RN. Per alirio RN, pt has been medically cleared by multiple ER's and alirio CROOKS. Pt has received full body MRI and has been cleared. Alirio HARTMAN states that pt has been trying to get medical order for wheelchair or ambulatory assist devices so pt can be moved out of current assisted cell. Per alirio HARTMAN, pt refuses BS checks and insulin until he makes himself unwell enough for an ER visit. Meds updated per alirio HARTMAN.
[2020-06-17] MEDS ORDERED: ONDANSETRON 2MG/ML, 2ML IVPush PRN (02:00)
[2020-06-17] MEDS ORDERED: hydrALAzine 20 MG/ML, 1ML IVPush PRN (02:00)
[2020-06-17] MEDS ORDERED: PROMETHAZINE 25 MG/ML, 1ML IM PRN (02:00)
[2020-06-17] MEDS ORDERED: TRAZODONE 50MG TABLET PO PRN (02:00)
[2020-06-17] MEDS ORDERED: ACETAMINOPHEN 325 MG TABLET PO PRN (02:00)
--- NOTE | 2020-06-17 02:06 | NUR ---
Pt given ice water. Pt aware of unknown wait time for med upstairs. VSS.
[2020-06-17] MEDS ORDERED: PANTOPRAZOLE 40 MG IV ONE (02:20)
[2020-06-17] MEDS: PANTOPRAZOLE 40 MG IV IVPush SCH ×2 (02:27→15:43)
[2020-06-17] MEDS: LACTATED RINGERS 1,000 ML IV SCH ×3 (02:31→18:00)
--- NOTE | 2020-06-17 02:37 | NUR ---
Protonix given. LR started. Pt tolerating ice water. HR down to 105. New urinal given to pt.
--- NOTE | 2020-06-17 03:46 | NUR ---
Pt resting on gurney. No more vomiting. Pt has tolerated an additional 2 cups of water. VSS. Fluids going. Pt and officers updated on wait for room.
--- NOTE | 2020-06-17 05:00 | NUR ---
report from sabra contreras
--- NOTE | 2020-06-17 05:16 | NUR ---
pt denies nausea at this time. pt provided chicken broth
[2020-06-17 05:20] LABS: ANION GAP 8 mmol/L (5-15); CALCIUM 8.5 mg/dL (8.5-10.1); CHLORIDE 103 mmol/L (98-107)
[2020-06-17] MEDS: NICOTINE 14MG/24 HR PATCH.TD24 TD SCH (05:20)
[2020-06-17 05:21] LABS: CREATININE 1.03 mg/dL (0.7-1.3)
--- NOTE | 2020-06-17 05:21 | NUR ---
med request tubed to lab
[2020-06-17] MEDS: INSULIN GLARGINE 100 UNITS/ML, PEN SQ-INSULIN SCH ×3 (05:41→20:21)
--- NOTE | 2020-06-17 06:55 | NUR ---
REPORT TO DEVAN MONTENEGRO
--- NOTE | 2020-06-17 06:57 | NUR ---
REPORT RECEIVED FROM PAULIE HARTMAN. THIS IS A 40 YO M W/ C/O HIGH BS, N/V. PER RN PT IS BEING ADMITTED FOR HYPERKALEMIA AND DEHYDRATION. PT RESTING ON HOSPITAL BED, CONNECTED TO ALL MONITORING, TACHYCARDIC, OTHER VS WDL. AWAITING ADMIT.
--- NOTE | 2020-06-17 07:34 | NUR ---
TELEPHONE CALL TO PHARMACY, REGARDING LANTUS ADMINISTRATION. PER CRISTIAN PHARMACIST WE SHOULD HOLD LANTUS TIL 1200PM THAN RESUME NORMAL SCHEDULE AT 2100.
[2020-06-17] MEDS ORDERED: LEVETIRACETAM 500 MG TABLET ONE (08:15)
--- NOTE | 2020-06-17 08:35 | NUR ---
TELEPHONE CALL TO PROVIDER THO GEE [phone] Addendum: 06/17/20 at 0836 by LIZZIE TELEPHONE CALL TO PROVIDER THO GEE [phone]. NO ANSWER, MESSAGE LEFT.
--- NOTE | 2020-06-17 08:39 | NUR ---
TELEPHONE CALL RECEIVED FROM . NATY TO CHANGE DIET TO DIABETIC DIET.
[2020-06-17] MEDS ORDERED: INSULIN LISPRO SINGLE DOSE, ER SQ-INSULIN ONE (08:41)
[2020-06-17] MEDS: INSULIN LISPRO 100 UNITS/ML, PEN SQ-INSULIN SCH ×4 (08:44→20:22)
[2020-06-17] MEDS ORDERED: LEVETIRACETAM 500 MG TABLET PO SCH (09:00)
--- NOTE | 2020-06-17 11:19 | NUR ---
RECEIVED REPORT FROM MONI HARTMAN. ASSUMING CARE AT THIS TIME.
--- NOTE | 2020-06-17 11:28 | NUR ---
Yanely inman in [facility] - 06/17/20 at 1129 by LIZZIE 150MG OF PROPOFOL WASTED AND OBSERVED BY SABRINA HARTMAN
--- NOTE | 2020-06-17 13:18 | NUR ---
REPORT GIVEN TO ERICK HARTMAN.
[2020-06-17 13:43] VITALS: BP 95/59
[2020-06-17 18:52] VITALS: BP 97/55
[2020-06-17] MEDS: LEVETIRACETAM 100 MG/ML ORAL SOL PO SCH (20:21)
[2020-06-18 00:36] VITALS: BP 95/56
[2020-06-18] MEDS: LACTATED RINGERS 1,000 ML IV SCH ×2 (02:45→10:00)
[2020-06-18] MEDS: NICOTINE 14MG/24 HR PATCH.TD24 TD SCH (02:49)
[2020-06-18] MEDS: PANTOPRAZOLE 40 MG IV IVPush SCH (05:59)
[2020-06-18] MEDS: INSULIN GLARGINE 100 UNITS/ML, PEN SQ-INSULIN SCH (08:03)
[2020-06-18] MEDS: LEVETIRACETAM 100 MG/ML ORAL SOL PO SCH (08:04)
[2020-06-18] MEDS: INSULIN LISPRO 100 UNITS/ML, PEN SQ-INSULIN SCH ×2 (08:04→11:00)
[2020-06-18 10:06] VITALS: BP 107/66
== END 2020-06-18 14:49 ==
LOC: ED 21:29 → EDIP 06-17 00:50 → INTOOBSV 06-17 00:50 → 4WST 06-17 13:29
PROVIDERS: ADMIT Family Medicine; ATTEND Family Medicine
DX: R11.2 Nausea with vomiting, unspecified (principal); E10.65 Type 1 diabetes mellitus with hyperglycemia; G40.909 Epilepsy, unspecified, not intractable, without status epilepticus; M16.12 Unilateral primary osteoarthritis, left hip; K29.70 Gastritis, unspecified, without bleeding; K20.9 Esophagitis, unspecified; G89.29 Other chronic pain; E87.5 Hyperkalemia; E86.0 Dehydration; Z72.0 Tobacco use; Z79.4 Long term (current) use of insulin; Z91.14 Patient's other noncompliance with medication regimen
CPT/HCPCS: 36415; 80048; 80053; 82010; 82962; 83036; 83690; 85025; 96361; 96374; 96375; 96376; 99284; C9113; G0378; J1815; J2405; J7030; J7120; 99285

== ENCOUNTER 2020-06-22 13:49 | Inpatient (IN) | payer MEDICAID, OTHER ==
[~2020-06-22] VITALS: Ht 185.4 cm; Wt 83.6 kg
--- NOTE | 2020-06-22 13:54 | NUR ---
PT IN CUSTODY, DEPUTIES AT BS. PT PLACED ON ALL ROOM MONITORING . CALL LIGHT WITHIN REACH.
--- NOTE | 2020-06-22 14:10 | NUR ---
PIV PLACED-MEDICATED PER EMAR VSS-HOWEVER REMAINS TACHYCARDIC 120-130 LABS AT BEDSIDE FOR FULL SET OF LABS INCLUDING DKA WORKUP FSBS 543
[2020-06-22 14:25] LABS: MEAN CORPUSCULAR HEMOGLOBIN 28.6 pg (27.5-34.5); MEAN CORPUSCULAR VOLUME 89.6 fL (81-97); MEAN PLATELET VOLUME 9.1 fL (7.4-10.4); PH, VENOUS 7.191 pH (7.320-7.420); PLATELET COUNT 318 x10^3/uL (130-400); RED BLOOD COUNT 5.65 x10^6/uL (4.38-5.82); RED CELL DISTRIBUTION WIDTH 14.1 % (9.4-14.8)
[2020-06-22] MEDS ORDERED: ONDANSETRON 2MG/ML, 2ML IVPush ONE (14:30)
[2020-06-22] MEDS ORDERED: SODIUM CHLORIDE FLUSH 10ML SYR IVF ONE (14:30)
[2020-06-22] MEDS ORDERED: SODIUM CHLORIDE 0.9% 1,000ML IVBOLUS ONE (14:30)
[2020-06-22] MEDS ORDERED: ONDANSETRON 2MG/ML, 2ML ONE (14:31)
[2020-06-22] MEDS ORDERED: MORPHINE SULFATE 4 MG/ML, 1ML ONE (14:31)
[2020-06-22] MEDS: MORPHINE SULFATE 4 MG/ML, 1ML IVPush PRN ×2 (14:34→21:38)
[2020-06-22 14:37] LABS: ALANINE AMINOTRANSFERASE 30 U/L (12-78); ALBUMIN 4.3 g/dL (3.4-5.0); ANION GAP 21 mmol/L (5-15); CALCIUM 9.4 mg/dL (8.5-10.1); CHLORIDE 93 mmol/L (98-107); CREATININE 1.69 mg/dL (0.7-1.3)
[2020-06-22 14:39] LABS: ALKALINE PHOSPHATASE 87 U/L (45-117); BILIRUBIN,TOTAL 0.9 mg/dL (0.2-1.0); TOTAL PROTEIN 8.3 g/dL (6.4-8.2)
[2020-06-22 14:50] LABS: ACETONE, SERUM Large (80mg/dL) (Negative)
[2020-06-22 14:57] LABS: BASOPHILS % (AUTO) 0 % (0-1); EOSINOPHILS % (AUTO) 0 % (1-7); LYMPHOCYTES # (AUTO) 1.33 x10^3/uL (1-3.4); LYMPHOCYTES % (AUTO) 9 % (22-44); MD SCAN; MONOCYTES # (AUTO) 0.04 x10^3/uL (0.2-0.8); MONOCYTES % (AUTO) 0 % (2-9); NEUTROPHILS # (AUTO) 12.87 x10^3/uL (1.8-6.8); NEUTROPHILS % (AUTO) 90 % (42-75)
[2020-06-22] MEDS: SODIUM CHLORIDE 0.9% 1,000 ML IV SCH ×5 (15:30→21:42)
--- NOTE | 2020-06-22 15:54 | NUR ---
ADMIT ORDER IN PLACE. WARM BLANKET GIVEN AND ICE CHIPS PROVIDED WITH ERP APPROVAL. PT RESTING QUIETLY, NO VOMITING SINCE ARRIVAL TO ED. DEPUTIES AT BS, CALL LIGHT WITHIN REACH.
--- NOTE | 2020-06-22 16:05 | NUR ---
URINE COLLECTED/SENT TO LAB. 2ND WARM BLANKET PROVIDED.
[2020-06-22 16:14] LABS: MICROSCOPIC INDICATED
--- NOTE | 2020-06-22 16:59 | NUR ---
DR REICH IN TO SEE PT. IVF BOLUS NOT INFUSING, IV FLUSHED, INFUSING BETTER AT THIS TIME. VO DR REICH FOR BMP STAT/ORDER PLACED, LAB ALERTED.
[2020-06-22 17:48] LABS: ANION GAP 23 mmol/L (5-15); CALCIUM 9.1 mg/dL (8.5-10.1); CHLORIDE 98 mmol/L (98-107); CREATININE 1.43 mg/dL (0.7-1.3)
--- NOTE | 2020-06-22 18:25 | NUR ---
IV NOT INFUSING, IV SITE CHECKED AGAIN AND NOT WORKING. INFILTRATE WITH FLUSH. FIELD HEALTH OFFICER NOTIFIED OF NEED FOR POSSIBLE US GUIDED IV.
[2020-06-22] MEDS ORDERED: GLUCAGON 1 MG IM PRN (19:00)
[2020-06-22] MEDS ORDERED: morphine SULFATE 10 MG/ML, 1ML IVPush PRN (19:00)
[2020-06-22] MEDS ORDERED: DEXTROSE 4 GM TAB.CHEW PO PRN (19:00)
[2020-06-22] MEDS ORDERED: DEXTROSE 50%, 50ML SYRINGE IVPush PRN (19:00)
[2020-06-22 19:14] LABS: INTERNATIONAL NORMALIZED RATIO 1.04 (0.93-1.1); PROTHROMBIN TIME 10.7 Seconds (9.6-11.5)
--- NOTE | 2020-06-22 19:21 | NUR ---
This rn attempted multiple iv's, including US iv, without success. Will attempt to get another RN for iv.
--- NOTE | 2020-06-22 19:24 | NUR ---
Katherine montaño at bedside to attempt iv.
[2020-06-22 19:26] LABS: TROPONIN I < 0.015 ng/mL (0.000-0.045)
--- NOTE | 2020-06-22 19:30 | NUR ---
ERMD notified of situation and at bedside for iv.
--- NOTE | 2020-06-22 19:57 | NUR ---
ERMD was successful on iv access and fluids reinitiated. 1L NS bolus reinitiated.
--- NOTE | 2020-06-22 20:06 | NUR ---
Insulin requested from rx.
--- NOTE | 2020-06-22 20:31 | NUR ---
FSBG of "exceeding unit capabilities" noted.
[2020-06-22] MEDS: REGULAR INSULIN 100 UNITS in SODIUM CHLORIDE 0.9% 99 ML IV PRN (20:34)
[2020-06-22] MEDS ORDERED: PANTOPRAZOLE 80 MG in SODIUM CHLORIDE 0.9% 50 ML IV ONE (20:52)
[2020-06-22] MEDS: LEVETIRACETAM 500 MG in SODIUM CHLORIDE 0.9% 100 ML IV SCH (21:42)
[2020-06-22] MEDS: PANTOPRAZOLE 80 MG in SODIUM CHLORIDE 0.9% 100 ML IV SCH (21:42)
[2020-06-22] MEDS: SODIUM CHLORIDE FLUSH 10ML SYR IVF SCH (21:43)
[2020-06-23 01:19] LABS: ANION GAP 20 mmol/L (5-15); CHLORIDE 104 mmol/L (98-107); CREATININE 1.77 mg/dL (0.7-1.3)
[2020-06-23 01:23] LABS: TROPONIN I 0.041 ng/mL (0.000-0.045)
[2020-06-23] MEDS: SODIUM CHLORIDE 0.9% 1,000 ML IV SCH ×3 (02:48→22:45)
[2020-06-23] MEDS: REGULAR INSULIN 100 UNITS in SODIUM CHLORIDE 0.9% 99 ML IV PRN (02:52)
[2020-06-23] MEDS: PANTOPRAZOLE 80 MG in SODIUM CHLORIDE 0.9% 100 ML IV SCH (02:52)
[2020-06-23 03:31] LABS: MEAN CORPUSCULAR HGB CONC 32.7 g/dL (33.2-36.2); MEAN CORPUSCULAR VOLUME 88.6 fL (81-97); MEAN PLATELET VOLUME 8.9 fL (7.4-10.4); PLATELET COUNT 300 x10^3/uL (130-400); RED BLOOD COUNT 5.59 x10^6/uL (4.38-5.82); RED CELL DISTRIBUTION WIDTH 14.4 % (9.4-14.8)
[2020-06-23 03:44] VITALS: BP 102/66
[2020-06-23 04:21] LABS: BASOPHILS # (AUTO) 0.03 x10^3/uL (0-0.1); BASOPHILS % (AUTO) 0 % (0-1); EOSINOPHILS # (AUTO) 0.12 x10^3/uL (0-0.4); EOSINOPHILS % (AUTO) 1 % (1-7); LYMPHOCYTES # (AUTO) 1.53 x10^3/uL (1-3.4); LYMPHOCYTES % (AUTO) 7 % (22-44); MD SCAN; MONOCYTES # (AUTO) 0.64 x10^3/uL (0.2-0.8); MONOCYTES % (AUTO) 3 % (2-9); NEUTROPHILS # (AUTO) 19.12 x10^3/uL (1.8-6.8); NEUTROPHILS % (AUTO) 89 % (42-75)
[2020-06-23] MEDS: D5%-0.45NACL+KCL 20MEQ 1,000 ML IV SCH ×2 (04:49→05:15)
[2020-06-23 05:31] LABS: ALANINE AMINOTRANSFERASE 28 U/L (12-78); ALBUMIN 3.4 g/dL (3.4-5.0); ANION GAP 7 mmol/L (5-15); CALCIUM 8.4 mg/dL (8.5-10.1); CHLORIDE 112 mmol/L (98-107); CREATININE 1.42 mg/dL (0.7-1.3)
[2020-06-23 05:33] LABS: ALKALINE PHOSPHATASE 74 U/L (45-117); BILIRUBIN,TOTAL 0.4 mg/dL (0.2-1.0)
[2020-06-23] MEDS ORDERED: INSULIN GLARGINE 100 UNITS/ML, PEN SQ-INSULIN SCH (07:00)
[2020-06-23] MEDS: PANTOPRAZOLE 40 MG IV IVPush SCH ×2 (08:25→20:21)
[2020-06-23] MEDS: INSULIN LISPRO 100 UNITS/ML, PEN SQ-INSULIN SCH ×4 (08:26→20:23)
[2020-06-23] MEDS: LEVETIRACETAM 500 MG in SODIUM CHLORIDE 0.9% 100 ML IV SCH ×2 (08:26→20:21)
[2020-06-23] MEDS: SODIUM CHLORIDE FLUSH 10ML SYR IVF SCH ×2 (08:27→21:08)
[2020-06-23] MEDS ORDERED: SODIUM PHOSPHATE 40 MMOL in SODIUM CHLORIDE 0.9% 500 ML IV ONE (10:00)
[2020-06-23 11:15] VITALS: BP 124/78
[2020-06-23] MEDS: ONDANSETRON 2MG/ML, 2ML IVPush PRN (11:48)
[2020-06-23 16:00] VITALS: BP 119/76
[2020-06-23 19:58] VITALS: BP 101/62
[2020-06-23] MEDS: INSULIN GLARGINE 100 UNITS/ML, PEN SQ-INSULIN SCH (20:22)
[2020-06-24 01:39] VITALS: BP 99/62
[2020-06-24 06:02] LABS: CHLORIDE 106 mmol/L (98-107)
[2020-06-24 06:08] LABS: BASOPHILS # (AUTO) 0.04 x10^3/uL (0-0.1); BASOPHILS % (AUTO) 0 % (0-1); EOSINOPHILS # (AUTO) 0.01 x10^3/uL (0-0.4); EOSINOPHILS % (AUTO) 0 % (1-7); LYMPHOCYTES # (AUTO) 1.79 x10^3/uL (1-3.4); LYMPHOCYTES % (AUTO) 12 % (22-44); MD NO; MEAN CORPUSCULAR HEMOGLOBIN 29.4 pg (27.5-34.5); MEAN CORPUSCULAR HGB CONC 33.1 g/dL (33.2-36.2); MEAN CORPUSCULAR VOLUME 88.8 fL (81-97); MEAN PLATELET VOLUME 9.2 fL (7.4-10.4); MONOCYTES # (AUTO) 0.77 x10^3/uL (0.2-0.8); MONOCYTES % (AUTO) 5 % (2-9); NEUTROPHILS # (AUTO) 12.65 x10^3/uL (1.8-6.8); NEUTROPHILS % (AUTO) 83 % (42-75); PLATELET COUNT 249 x10^3/uL (130-400); RED BLOOD COUNT 4.25 x10^6/uL (4.38-5.82); RED CELL DISTRIBUTION WIDTH 14.2 % (9.4-14.8)
[2020-06-24 06:12] LABS: ANION GAP 7 mmol/L (5-15); CALCIUM 8.2 mg/dL (8.5-10.1); CREATININE 1.08 mg/dL (0.7-1.3)
[2020-06-24] MEDS: SODIUM CHLORIDE 0.9% 1,000 ML IV SCH ×2 (07:15→21:11)
[2020-06-24] MEDS: PANTOPRAZOLE 40 MG IV IVPush SCH ×2 (07:27→21:09)
[2020-06-24] MEDS: INSULIN GLARGINE 100 UNITS/ML, PEN SQ-INSULIN SCH ×2 (07:27→20:00)
[2020-06-24] MEDS: INSULIN LISPRO 100 UNITS/ML, PEN SQ-INSULIN SCH ×4 (07:28→21:00)
[2020-06-24 08:05] VITALS: BP 130/71
[2020-06-24] MEDS: ONDANSETRON 2MG/ML, 2ML IVPush PRN (09:18)
[2020-06-24] MEDS: LEVETIRACETAM 500 MG in SODIUM CHLORIDE 0.9% 100 ML IV SCH ×2 (09:19→21:10)
[2020-06-24] MEDS: SODIUM CHLORIDE FLUSH 10ML SYR IVF SCH ×2 (09:19→21:10)
[2020-06-24] MEDS ORDERED: SUCCINYLCHOLINE 20 MG/ML, 10ML ONE (11:11)
[2020-06-24] MEDS ORDERED: PROPOFOL 10 MG/ML, 20ML ONE (11:11)
[2020-06-24] MEDS ORDERED: CHLORHEXIDINE 15 ML UDC MM ONE (12:30)
[2020-06-24 12:42] VITALS: BP 105/67
[2020-06-24] MEDS ORDERED: ALBUTEROL SULFATE 2.5 MG/3 ML NPPB PRN (17:00)
[2020-06-24] MEDS ORDERED: HYDROmorphone 1 MG/ML, 1ML INJ IV PRN (17:00)
[2020-06-24] MEDS ORDERED: LABETALOL 5MG/ML, 20ML IV PRN (17:00)
[2020-06-24] MEDS ORDERED: METOCLOPRAMIDE 5 MG/ML, 2ML IV PRN (17:00)
[2020-06-24] MEDS ORDERED: DIAZEPAM 5 MG/ML, 2ML IV PRN ×2 (17:00)
[2020-06-24] MEDS ORDERED: OXYcodone 5 MG/5 ML ORAL.SOL UDC PO PRN (17:00)
[2020-06-24] MEDS ORDERED: PROMETHAZINE 25 MG/ML, 1ML IV PRN (17:00)
[2020-06-24] MEDS ORDERED: ONDANSETRON 2MG/ML, 2ML IVPush PRN (17:00)
[2020-06-24] MEDS ORDERED: hydrALAzine 20 MG/ML, 1ML IV PRN (17:00)
[2020-06-24] MEDS ORDERED: KETOROLAC 30 MG/1 ML IV PRN (17:00)
[2020-06-24] MEDS ORDERED: MEPERIDINE/PF 25MG/0.5ML IVPush PRN (17:00)
[2020-06-24] MEDS ORDERED: KETOROLAC 30 MG/1 ML ONE (17:07)
[2020-06-24] MEDS ORDERED: FENTANYL PF 100 MCG/2ML ONE (17:07)
[2020-06-24] MEDS: FENTANYL PF 100 MCG/2ML IV PRN ×2 (17:10→17:15)
[2020-06-24] MEDS: SUCRALFATE 1 GM/10 ML UDC PO SCH ×2 (17:55→21:11)
[2020-06-24 19:11] VITALS: BP 101/62
[2020-06-25 02:00] VITALS: BP 115/67
[2020-06-25 03:14] LABS: BASOPHILS # (AUTO) 0.14 x10^3/uL (0-0.1); BASOPHILS % (AUTO) 1 % (0-1); EOSINOPHILS # (AUTO) 0.01 x10^3/uL (0-0.4); EOSINOPHILS % (AUTO) 0 % (1-7); LYMPHOCYTES # (AUTO) 2.74 x10^3/uL (1-3.4); LYMPHOCYTES % (AUTO) 27 % (22-44); MD NO; MEAN CORPUSCULAR HEMOGLOBIN 29.3 pg (27.5-34.5); MEAN CORPUSCULAR VOLUME 88.8 fL (81-97); MEAN PLATELET VOLUME 8.5 fL (7.4-10.4); MONOCYTES # (AUTO) 0.52 x10^3/uL (0.2-0.8); MONOCYTES % (AUTO) 5 % (2-9); NEUTROPHILS # (AUTO) 6.72 x10^3/uL (1.8-6.8); NEUTROPHILS % (AUTO) 66 % (42-75); PLATELET COUNT 205 x10^3/uL (130-400); RED BLOOD COUNT 4.24 x10^6/uL (4.38-5.82); RED CELL DISTRIBUTION WIDTH 14.3 % (9.4-14.8)
[2020-06-25 03:28] LABS: ANION GAP 6 mmol/L (5-15); CALCIUM 8.3 mg/dL (8.5-10.1); CHLORIDE 107 mmol/L (98-107)
[2020-06-25] MEDS ORDERED: POTASSIUM CHLORIDE 20 MEQ TAB.ER.PRT PO ONE (07:00)
[2020-06-25] MEDS: SUCRALFATE 1 GM/10 ML UDC PO SCH ×4 (07:34→19:46)
[2020-06-25] MEDS: INSULIN LISPRO 100 UNITS/ML, PEN SQ-INSULIN SCH ×4 (07:38→21:58)
[2020-06-25] MEDS: INSULIN GLARGINE 100 UNITS/ML, PEN SQ-INSULIN SCH ×2 (07:41→21:58)
[2020-06-25] MEDS: PANTOPRAZOLE 40MG TABLET PO SCH ×2 (08:42→16:50)
[2020-06-25] MEDS: LEVETIRACETAM 100 MG/ML ORAL SOL PO SCH ×2 (08:46→19:36)
[2020-06-25 09:00] VITALS: BP 127/72
[2020-06-25] MEDS: SODIUM CHLORIDE FLUSH 10ML SYR IVF SCH ×2 (09:00→19:37)
[2020-06-25] MEDS ORDERED: KETOROLAC 30 MG/1 ML IVPush SCH (13:00)
[2020-06-25] MEDS: SODIUM CHLORIDE 0.9% 1,000 ML IV SCH ×3 (13:42→23:56)
[2020-06-25 15:05] VITALS: BP 102/67
[2020-06-25 18:55] VITALS: BP 113/72
[2020-06-25] MEDS: KETOROLAC 30 MG/1 ML IVPush PRN (19:36)
[2020-06-26 01:10] VITALS: BP 135/72
[2020-06-26] MEDS: KETOROLAC 30 MG/1 ML IVPush PRN ×3 (03:05→20:10)
[2020-06-26 04:28] LABS: BASOPHILS # (AUTO) 0.03 x10^3/uL (0-0.1); BASOPHILS % (AUTO) 1 % (0-1); EOSINOPHILS # (AUTO) 0.06 x10^3/uL (0-0.4); EOSINOPHILS % (AUTO) 1 % (1-7); LYMPHOCYTES % (AUTO) 45 % (22-44); MD NO; MEAN CORPUSCULAR HGB CONC 32.9 g/dL (33.2-36.2); MEAN CORPUSCULAR VOLUME 88.2 fL (81-97); MEAN PLATELET VOLUME 8.6 fL (7.4-10.4); MONOCYTES # (AUTO) 0.42 x10^3/uL (0.2-0.8); MONOCYTES % (AUTO) 7 % (2-9); NEUTROPHILS # (AUTO) 2.62 x10^3/uL (1.8-6.8); NEUTROPHILS % (AUTO) 46 % (42-75); PLATELET COUNT 199 x10^3/uL (130-400); RED CELL DISTRIBUTION WIDTH 13.6 % (9.4-14.8)
[2020-06-26 04:34] LABS: ANION GAP 3 mmol/L (5-15); CALCIUM 7.6 mg/dL (8.5-10.1); CHLORIDE 107 mmol/L (98-107); CREATININE 0.72 mg/dL (0.7-1.3)
[2020-06-26] MEDS: SUCRALFATE 1 GM/10 ML UDC PO SCH ×4 (06:42→20:11)
[2020-06-26] MEDS: PANTOPRAZOLE 40MG TABLET PO SCH ×2 (06:42→16:41)
[2020-06-26] MEDS: INSULIN LISPRO 100 UNITS/ML, PEN SQ-INSULIN SCH ×4 (07:00→22:19)
[2020-06-26 08:07] VITALS: BP 104/66
[2020-06-26] MEDS: LEVETIRACETAM 100 MG/ML ORAL SOL PO SCH ×2 (11:13→20:11)
[2020-06-26] MEDS: SODIUM CHLORIDE FLUSH 10ML SYR IVF SCH ×2 (11:13→20:11)
[2020-06-26] MEDS: INSULIN GLARGINE 100 UNITS/ML, PEN SQ-INSULIN SCH ×2 (11:13→22:18)
[2020-06-26] MEDS: ONDANSETRON 2MG/ML, 2ML IVPush PRN (11:14)
[2020-06-26] MEDS: SODIUM CHLORIDE 0.9% 1,000 ML IV SCH ×3 (12:18→23:23)
[2020-06-26 13:47] VITALS: BP 105/62
[2020-06-26] MEDS ORDERED: MAGNESIUM SULFATE PMX 2GM/50ML 50 ML IV ONE (14:00)
[2020-06-26] MEDS ORDERED: METOCLOPRAMIDE 5 MG/ML, 2ML IVPush PRN (14:00)
[2020-06-26] MEDS: POTASSIUM CHLORIDE 20 MEQ TAB.ER.PRT PO SCH ×2 (14:53→16:41)
[2020-06-26] MEDS: DIPHENHYDRAMINE 50 MG/ML, 1ML IVPush PRN ×2 (16:49→22:17)
[2020-06-26 18:50] VITALS: BP 101/66
[2020-06-27 00:44] VITALS: BP 106/72
[2020-06-27 05:40] LABS: BASOPHILS # (AUTO) 0.03 x10^3/uL (0-0.1); BASOPHILS % (AUTO) 1 % (0-1); EOSINOPHILS % (AUTO) 2 % (1-7); LYMPHOCYTES # (AUTO) 2.64 x10^3/uL (1-3.4); LYMPHOCYTES % (AUTO) 54 % (22-44); MD NO; MEAN CORPUSCULAR HEMOGLOBIN 29.2 pg (27.5-34.5); MEAN CORPUSCULAR HGB CONC 32.9 g/dL (33.2-36.2); MEAN CORPUSCULAR VOLUME 88.6 fL (81-97); MEAN PLATELET VOLUME 8.6 fL (7.4-10.4); MONOCYTES # (AUTO) 0.33 x10^3/uL (0.2-0.8); MONOCYTES % (AUTO) 7 % (2-9); NEUTROPHILS # (AUTO) 1.79 x10^3/uL (1.8-6.8); NEUTROPHILS % (AUTO) 37 % (42-75); PLATELET COUNT 192 x10^3/uL (130-400); RED BLOOD COUNT 4.52 x10^6/uL (4.38-5.82); RED CELL DISTRIBUTION WIDTH 13.8 % (9.4-14.8)
[2020-06-27 05:51] LABS: ALBUMIN 2.7 g/dL (3.4-5.0); ANION GAP 5 mmol/L (5-15); CALCIUM 8.2 mg/dL (8.5-10.1); CHLORIDE 107 mmol/L (98-107)
[2020-06-27 05:56] LABS: ALANINE AMINOTRANSFERASE 19 U/L (12-78); ALKALINE PHOSPHATASE 73 U/L (45-117); BILIRUBIN,TOTAL 0.7 mg/dL (0.2-1.0); CREATININE 0.72 mg/dL (0.7-1.3); TOTAL PROTEIN 5.6 g/dL (6.4-8.2)
[2020-06-27] MEDS: SUCRALFATE 1 GM/10 ML UDC PO SCH ×3 (06:35→16:35)
[2020-06-27] MEDS: PANTOPRAZOLE 40MG TABLET PO SCH ×2 (06:35→16:35)
[2020-06-27] MEDS: SODIUM CHLORIDE 0.9% 1,000 ML IV SCH (06:39)
[2020-06-27 06:50] VITALS: BP 107/70
[2020-06-27] MEDS: POTASSIUM CHLORIDE 20 MEQ TAB.ER.PRT PO SCH (08:58)
[2020-06-27] MEDS: LEVETIRACETAM 100 MG/ML ORAL SOL PO SCH (08:58)
[2020-06-27] MEDS ORDERED: MAGNESIUM OXIDE 400 MG TABLET PO SCH (09:00)
[2020-06-27] MEDS: INSULIN GLARGINE 100 UNITS/ML, PEN SQ-INSULIN SCH (09:08)
[2020-06-27] MEDS: ONDANSETRON 2MG/ML, 2ML IVPush PRN (09:09)
[2020-06-27] MEDS: KETOROLAC 30 MG/1 ML IVPush PRN (09:09)
[2020-06-27] MEDS: INSULIN LISPRO 100 UNITS/ML, PEN SQ-INSULIN SCH ×3 (09:09→16:35)
[2020-06-27] MEDS: SODIUM CHLORIDE FLUSH 10ML SYR IVF SCH (09:10)
[2020-06-27 12:46] VITALS: BP 103/66
[2020-06-27] MEDS ORDERED: PANT40TA5 PO (15:18)
[2020-06-27] MEDS ORDERED: INSU100I13 SQ-INSULIN (15:18)
[2020-06-27] MEDS ORDERED: MAGN400T50 PO (15:18)
[2020-06-27] MEDS ORDERED: SUCR1ORA5 PO (15:18)
[2020-06-28] MEDS ORDERED: INSU100C5 SQ-INSULIN (20:21)
[2020-06-28] MEDS ORDERED: SUCR1TAB33 PO (20:21)
[2020-06-28] MEDS ORDERED: PANT40TA5 PO (20:21)
[2020-06-28] MEDS ORDERED: INSU100I13 SQ (20:21)
[2020-06-28] MEDS ORDERED: MAGN400T9 PO (20:21)
[2020-06-28] MEDS ORDERED: LEVE500T8 PO (20:21)
== END 2020-06-27 18:47 | disposition home or self-care (01) | DRG 637 ==
LOC: ED 15:28 → EDIP 15:44 → CCU 20:39 → 4NW 06-23 11:05
PROVIDERS: ADMIT Internal Medicine; ATTEND Internal Medicine
PROC: 0DJ08ZZ Inspection of Upper Intestinal Tract, Via Natural or Artificial Opening Endoscopic (ICD-10-PCS; principal; 2020-06-24 13:00)
DX: E10.10 Type 1 diabetes mellitus with ketoacidosis without coma (principal); N17.0 Acute kidney failure with tubular necrosis; S02.91XA Unspecified fracture of skull, initial encounter for closed fracture; E87.1 Hypo-osmolality and hyponatremia; K92.0 Hematemesis; R65.10 Systemic inflammatory response syndrome (SIRS) of non-infectious origin without acute organ dysfunction; D63.8 Anemia in other chronic diseases classified elsewhere; E83.39 Other disorders of phosphorus metabolism; E87.6 Hypokalemia; G40.909 Epilepsy, unspecified, not intractable, without status epilepticus; M51.36 Other intervertebral disc degeneration, lumbar region; W18.39XA Other fall on same level, initial encounter; K76.0 Fatty (change of) liver, not elsewhere classified; M16.12 Unilateral primary osteoarthritis, left hip; Z53.20 Procedure and treatment not carried out because of patient's decision for unspecified reasons; Z79.4 Long term (current) use of insulin; Z82.49 Family history of ischemic heart disease and other diseases of the circulatory system; Z87.19 Personal history of other diseases of the digestive system; Z91.19 Patient's noncompliance with other medical treatment and regimen; Y93.89 Activity, other specified; Y92.89 Other specified places as the place of occurrence of the external cause; Y99.8 Other external cause status; Z90.49 Acquired absence of other specified parts of digestive tract; Z79.899 Other long term (current) drug therapy; E83.42 Hypomagnesemia; Z88.0 Allergy status to penicillin; Z20.828 Contact with and (suspected) exposure to other viral communicable diseases
CPT/HCPCS: 36415; 36556; 71045; 80048; 80053; 81001; 82010; 82803; 82962; 83690; 83735; 84100; 84484; 85014; 85018; 85025; 85610; 85730; 87081; 87635; 93005; 96374; 96375; G0378; J1815; J1885; J1953; J2405; J2704; J3010; C9113; J0330; J1200; J2270; J3475; J3480; J7030; J7040

== ENCOUNTER 2020-06-28 19:56 | Inpatient (IN) | payer MEDICAID, OTHER ==
[~2020-06-28] VITALS: Ht 185.4 cm; Wt 75.2 kg
[~2020-06-28 19:56] MED LIST changes: +MAGN400T50 PO
--- NOTE | 2020-06-28 20:00 | NUR ---
LOTUS FROM [facility] FOR ABD PAIN, N/V +GI BLEED PER REPORT PT WAS TESTED AT NURSING HOME. FSBS WAS "HIGH" ON EMS GLUCOMETER. PLACED ON CARDIAC AND VITAL SIGNS MONITORS.
[2020-06-28] MEDS ORDERED: SODIUM CHLORIDE 0.9% 1,000 ML IV ONE (20:03)
[2020-06-28] MEDS ORDERED: PANTOPRAZOLE 80 MG in SODIUM CHLORIDE 0.9% 100 ML IV SCH ×2 (20:03→23:30)
[2020-06-28] MEDS ORDERED: PANT40TA5 PO (20:21)
[2020-06-28] MEDS ORDERED: SUCR1TAB33 PO (20:21)
[2020-06-28] MEDS ORDERED: INSU100C5 SQ-INSULIN (20:21)
[2020-06-28] MEDS ORDERED: LEVE500T8 PO (20:21)
[2020-06-28] MEDS ORDERED: INSU100I13 SQ (20:21)
[2020-06-28] MEDS ORDERED: MAGN400T9 PO (20:21)
[2020-06-28] MEDS ORDERED: SODIUM CHLORIDE FLUSH 10ML SYR IVF ONE (20:30)
[2020-06-28] MEDS ORDERED: SODIUM CHLORIDE 0.9% 1,000ML IVBOLUS ONE (20:30)
[2020-06-28] MEDS ORDERED: PANTOPRAZOLE 40 MG IV IVPush ONE (20:30)
[2020-06-28] MEDS ORDERED: PANTOPRAZOLE 40 MG IV ONE (20:46)
[2020-06-28 20:51] LABS: PH, VENOUS 7.361 pH (7.320-7.420)
[2020-06-28 20:52] LABS: O2 FLOW ROOM AIR L/min
[2020-06-28 20:53] LABS: BASOPHILS % (AUTO) 0 % (0-1); EOSINOPHILS # (AUTO) 0.03 x10^3/uL (0-0.4); EOSINOPHILS % (AUTO) 0 % (1-7); LYMPHOCYTES # (AUTO) 0.98 x10^3/uL (1-3.4); LYMPHOCYTES % (AUTO) 8 % (22-44); MD NO; MEAN CORPUSCULAR HEMOGLOBIN 29.1 pg (27.5-34.5); MEAN PLATELET VOLUME 9.2 fL (7.4-10.4); MONOCYTES # (AUTO) 0.54 x10^3/uL (0.2-0.8); MONOCYTES % (AUTO) 4 % (2-9); NEUTROPHILS # (AUTO) 10.89 x10^3/uL (1.8-6.8); NEUTROPHILS % (AUTO) 88 % (42-75); PLATELET COUNT 269 x10^3/uL (130-400); RED BLOOD COUNT 5.15 x10^6/uL (4.38-5.82); RED CELL DISTRIBUTION WIDTH 13.8 % (9.4-14.8)
[2020-06-28 21:03] LABS: INTERNATIONAL NORMALIZED RATIO 1.04 (0.93-1.1); PROTHROMBIN TIME 10.7 Seconds (9.6-11.5)
[2020-06-28 21:05] LABS: ALBUMIN 3.9 g/dL (3.4-5.0); ANION GAP 18 mmol/L (5-15); CALCIUM 9.1 mg/dL (8.5-10.1); CHLORIDE 93 mmol/L (98-107)
[2020-06-28 21:08] LABS: ALANINE AMINOTRANSFERASE 21 U/L (12-78); ALKALINE PHOSPHATASE 81 U/L (45-117); BILIRUBIN,TOTAL 1.3 mg/dL (0.2-1.0); CREATININE 1.22 mg/dL (0.7-1.3); TOTAL PROTEIN 7.7 g/dL (6.4-8.2)
[2020-06-28 21:10] LABS: ACETONE, SERUM Large (80mg/dL) (Negative)
[2020-06-28 21:17] LABS: MICROSCOPIC NOT IND
[2020-06-28] MEDS ORDERED: SODIUM CHLORIDE FLUSH 10ML SYR IVF PRN (23:00)
--- NOTE | 2020-06-28 23:00 | NUR ---
REPORT GIVEN TO AKANKSHA HARTMAN.
[2020-06-28 23:18] VITALS: BP 114/68
[2020-06-28] MEDS: SODIUM CHLORIDE 0.9% 1,000 ML IV SCH (23:42)
[2020-06-29] MEDS ORDERED: morphine SULFATE 10 MG/ML, 1ML IVPush PRN
[2020-06-29] MEDS ORDERED: BISACODYL 10 MG SUPP PR PRN
[2020-06-29] MEDS: ONDANSETRON 2MG/ML, 2ML IVPush PRN (00:18)
[2020-06-29] MEDS: INSULIN LISPRO 100 UNITS/ML, PEN SQ-INSULIN SCH ×5 (00:37→20:46)
[2020-06-29] MEDS: LEVETIRACETAM 500 MG in SODIUM CHLORIDE 0.9% 100 ML IV SCH ×3 (00:40→23:44)
[2020-06-29 00:51] VITALS: BP 99/59
[2020-06-29 02:39] LABS: TROPONIN I < 0.015 ng/mL (0.000-0.045)
[2020-06-29 03:52] VITALS: BP 128/77
[2020-06-29 04:02] LABS: MEAN CORPUSCULAR HEMOGLOBIN 28.8 pg (27.5-34.5); MEAN CORPUSCULAR HGB CONC 32.9 g/dL (33.2-36.2); MEAN CORPUSCULAR VOLUME 87.4 fL (81-97); MEAN PLATELET VOLUME 8.8 fL (7.4-10.4); PLATELET COUNT 269 x10^3/uL (130-400); RED BLOOD COUNT 4.53 x10^6/uL (4.38-5.82); RED CELL DISTRIBUTION WIDTH 13.5 % (9.4-14.8)
[2020-06-29 04:10] LABS: ANION GAP 17 mmol/L (5-15); CALCIUM 8.2 mg/dL (8.5-10.1); CHLORIDE 106 mmol/L (98-107); CREATININE 1.06 mg/dL (0.7-1.3)
[2020-06-29 04:35] LABS: BASOPHILS # (AUTO) 0.04 x10^3/uL (0-0.1); BASOPHILS % (AUTO) 0 % (0-1); EOSINOPHILS # (AUTO) 0.03 x10^3/uL (0-0.4); EOSINOPHILS % (AUTO) 0 % (1-7); LYMPHOCYTES # (AUTO) 1.71 x10^3/uL (1-3.4); LYMPHOCYTES % (AUTO) 8 % (22-44); MD SCAN; MONOCYTES # (AUTO) 0.88 x10^3/uL (0.2-0.8); MONOCYTES % (AUTO) 4 % (2-9); NEUTROPHILS # (AUTO) 18.98 x10^3/uL (1.8-6.8); NEUTROPHILS % (AUTO) 88 % (42-75)
[2020-06-29 06:34] VITALS: BP 123/71
[2020-06-29] MEDS: SODIUM CHLORIDE 0.9% 1,000 ML IV SCH ×3 (07:16→23:44)
[2020-06-29] MEDS ORDERED: SODIUM CHLORIDE 0.9% 1,000ML IVBOLUS ONE ×2 (10:00→16:00)
[2020-06-29] MEDS: CEFTRIAXONE PMX 1GM/50ML 50 ML IV SCH ×2 (10:04→21:45)
[2020-06-29] MEDS: FLUCONAZOLE 400 MG/200 ML 200 ML IV SCH (10:55)
[2020-06-29] MEDS: METRONIDAZOLE PMX 500MG/100ML 100 ML IV SCH ×3 (10:55→23:44)
[2020-06-29 11:14] LABS: ANION GAP 16 mmol/L (5-15); CHLORIDE 108 mmol/L (98-107)
[2020-06-29] MEDS ORDERED: CHLORHEXIDINE 15 ML UDC ONE (12:31)
[2020-06-29] MEDS ORDERED: FENTANYL PF 100 MCG/2ML ONE (13:02)
[2020-06-29] MEDS ORDERED: CEFAZOLIN 1,000 MG ONE (13:10)
[2020-06-29] MEDS ORDERED: DEXAMETHASONE 4 MG/ML, 1ML ONE (13:10)
[2020-06-29] MEDS ORDERED: NEOSTIGMINE 1 MG/ML, 10ML ONE (13:10)
[2020-06-29] MEDS ORDERED: SUCCINYLCHOLINE 20 MG/ML, 10ML ONE (13:10)
[2020-06-29] MEDS ORDERED: PROPOFOL 10 MG/ML, 20ML ONE (13:10)
[2020-06-29] MEDS ORDERED: GLYCOPYRROLATE 0.2MG/1ML, 5ML ONE (13:10)
[2020-06-29] MEDS ORDERED: ONDANSETRON 2MG/ML, 2ML ONE (13:10)
[2020-06-29] MEDS ORDERED: ROCURONIUM 10MG/ML,5ML ONE (13:10)
[2020-06-29 14:28] VITALS: BP 111/72
[2020-06-29 15:06] VITALS: BP 101/68
[2020-06-29 16:14] LABS: ANION GAP 13 mmol/L (5-15); CALCIUM 8.4 mg/dL (8.5-10.1); CHLORIDE 107 mmol/L (98-107); CREATININE 1.03 mg/dL (0.7-1.3)
[2020-06-29] MEDS: SUCRALFATE 1 GM/10 ML UDC PO SCH ×2 (17:41→20:46)
[2020-06-29 20:22] VITALS: BP 112/74
[2020-06-29] MEDS: PANTOPRAZOLE 80 MG in SODIUM CHLORIDE 0.9% 100 ML IV SCH (20:46)
[2020-06-29] MEDS ORDERED: LEVETIRACETAM 500 MG TABLET PO SCH (21:00)
[2020-06-29] MEDS: INSULIN GLARGINE 100 UNITS/ML, PEN SQ-INSULIN SCH (21:46)
[2020-06-29 23:40] LABS: ANION GAP 7 mmol/L (5-15); CALCIUM 7.7 mg/dL (8.5-10.1); CHLORIDE 105 mmol/L (98-107); CREATININE 0.97 mg/dL (0.7-1.3)
[2020-06-30 01:12] VITALS: BP 119/68
[2020-06-30 05:23] LABS: BASOPHILS # (AUTO) 0.04 x10^3/uL (0-0.1); BASOPHILS % (AUTO) 0 % (0-1); EOSINOPHILS # (AUTO) 0.11 x10^3/uL (0-0.4); EOSINOPHILS % (AUTO) 1 % (1-7); LYMPHOCYTES # (AUTO) 1.94 x10^3/uL (1-3.4); LYMPHOCYTES % (AUTO) 16 % (22-44); MD NO; MEAN CORPUSCULAR HEMOGLOBIN 29.2 pg (27.5-34.5); MEAN CORPUSCULAR HGB CONC 33.1 g/dL (33.2-36.2); MEAN CORPUSCULAR VOLUME 88.3 fL (81-97); MEAN PLATELET VOLUME 8.6 fL (7.4-10.4); MONOCYTES % (AUTO) 6 % (2-9); NEUTROPHILS # (AUTO) 9.58 x10^3/uL (1.8-6.8); NEUTROPHILS % (AUTO) 77 % (42-75); PLATELET COUNT 261 x10^3/uL (130-400); RED BLOOD COUNT 4.02 x10^6/uL (4.38-5.82); RED CELL DISTRIBUTION WIDTH 14.1 % (9.4-14.8)
[2020-06-30 05:34] LABS: ANION GAP 13 mmol/L (5-15); CHLORIDE 101 mmol/L (98-107)
[2020-06-30 05:43] LABS: ALANINE AMINOTRANSFERASE 12 U/L (12-78); ALBUMIN 2.5 g/dL (3.4-5.0); ALKALINE PHOSPHATASE 60 U/L (45-117); BILIRUBIN,TOTAL 0.7 mg/dL (0.2-1.0); CALCIUM 7.5 mg/dL (8.5-10.1); CREATININE 0.95 mg/dL (0.7-1.3); TOTAL PROTEIN 5.2 g/dL (6.4-8.2)
[2020-06-30] MEDS: METRONIDAZOLE PMX 500MG/100ML 100 ML IV SCH ×4 (05:49→23:42)
[2020-06-30] MEDS ORDERED: OMEPRAZOLE 20 MG CAPSULE.DR PO SCH (06:00)
[2020-06-30] MEDS: ONDANSETRON 2MG/ML, 2ML IVPush PRN (06:04)
[2020-06-30] MEDS: SUCRALFATE 1 GM/10 ML UDC PO SCH ×4 (06:04→20:44)
[2020-06-30] MEDS: PANTOPRAZOLE 80 MG in SODIUM CHLORIDE 0.9% 100 ML IV SCH ×2 (06:12→16:58)
[2020-06-30] MEDS ORDERED: MAGNESIUM SULFATE PMX 2GM/50ML 50 ML IV ONE (06:30)
[2020-06-30] MEDS ORDERED: SODIUM PHOSPHATE 10 MMOL in SODIUM CHLORIDE 0.9% 500 ML IV ONE (06:30)
[2020-06-30 06:39] VITALS: BP 115/69
[2020-06-30] MEDS: SODIUM CHLORIDE 0.9% 1,000 ML IV SCH ×3 (06:48→17:15)
[2020-06-30] MEDS: INSULIN LISPRO 100 UNITS/ML, PEN SQ-INSULIN SCH ×4 (07:28→20:45)
[2020-06-30] MEDS: CEFTRIAXONE PMX 1GM/50ML 50 ML IV SCH ×2 (08:54→21:54)
[2020-06-30] MEDS: INSULIN GLARGINE 100 UNITS/ML, PEN SQ-INSULIN SCH ×2 (09:31→20:45)
[2020-06-30] MEDS: LEVETIRACETAM 500 MG in SODIUM CHLORIDE 0.9% 100 ML IV SCH ×2 (10:45→23:20)
[2020-06-30 12:00] VITALS: BP 105/66
[2020-06-30] MEDS: FLUCONAZOLE 400 MG/200 ML 200 ML IV SCH (12:23)
[2020-06-30 20:17] VITALS: BP 116/74
[2020-07-01 00:28] VITALS: BP 118/69
[2020-07-01] MEDS: SODIUM CHLORIDE 0.9% 1,000 ML IV SCH ×4 (00:40→22:38)
[2020-07-01] MEDS: PANTOPRAZOLE 80 MG in SODIUM CHLORIDE 0.9% 100 ML IV SCH (02:54)
[2020-07-01 05:04] LABS: BASOPHILS # (AUTO) 0.05 x10^3/uL (0-0.1); BASOPHILS % (AUTO) 1 % (0-1); EOSINOPHILS # (AUTO) 0.07 x10^3/uL (0-0.4); EOSINOPHILS % (AUTO) 1 % (1-7); LYMPHOCYTES # (AUTO) 2.93 x10^3/uL (1-3.4); LYMPHOCYTES % (AUTO) 35 % (22-44); MD NO; MEAN CORPUSCULAR HEMOGLOBIN 29.3 pg (27.5-34.5); MEAN CORPUSCULAR HGB CONC 33.5 g/dL (33.2-36.2); MEAN CORPUSCULAR VOLUME 87.5 fL (81-97); MONOCYTES # (AUTO) 0.71 x10^3/uL (0.2-0.8); MONOCYTES % (AUTO) 8 % (2-9); NEUTROPHILS # (AUTO) 4.66 x10^3/uL (1.8-6.8); NEUTROPHILS % (AUTO) 55 % (42-75); PLATELET COUNT 277 x10^3/uL (130-400); RED BLOOD COUNT 4.18 x10^6/uL (4.38-5.82); RED CELL DISTRIBUTION WIDTH 13.9 % (9.4-14.8)
[2020-07-01 05:11] LABS: ANION GAP 7 mmol/L (5-15); CALCIUM 7.9 mg/dL (8.5-10.1); CHLORIDE 104 mmol/L (98-107); CREATININE 0.92 mg/dL (0.7-1.3)
[2020-07-01] MEDS: METRONIDAZOLE PMX 500MG/100ML 100 ML IV SCH ×4 (05:50→22:38)
[2020-07-01 06:23] VITALS: BP 123/68
[2020-07-01] MEDS: SUCRALFATE 1 GM/10 ML UDC PO SCH ×4 (06:27→20:07)
[2020-07-01] MEDS ORDERED: POTASSIUM CHLORIDE 40 MEQ in SODIUM CHLORIDE 0.9% 500 ML IV ONE (06:30)
[2020-07-01] MEDS ORDERED: MAGNESIUM SULFATE/D5W 100 ML IVPB ONE (06:30)
[2020-07-01] MEDS ORDERED: POTASSIUM PHOSPHATE 44 MEQ in SODIUM CHLORIDE 0.9% 500 ML IV ONE (06:30)
[2020-07-01] MEDS ORDERED: CALCIUM CHLORIDE 13.6 MEQ in SODIUM CHLORIDE 0.9% 100 ML IV ONE (06:30)
[2020-07-01] MEDS: PANTOPRAZOLE GRAN. PKT 40 MG PO SCH (06:33)
[2020-07-01] MEDS: INSULIN LISPRO 100 UNITS/ML, PEN SQ-INSULIN SCH ×4 (07:00→20:06)
[2020-07-01] MEDS: LEVETIRACETAM 100 MG/ML ORAL SOL PO SCH ×2 (08:40→20:07)
[2020-07-01] MEDS: INSULIN GLARGINE 100 UNITS/ML, PEN SQ-INSULIN SCH ×2 (08:41→20:07)
[2020-07-01] MEDS: CEFTRIAXONE PMX 1GM/50ML 50 ML IV SCH ×2 (10:39→22:38)
[2020-07-01 13:52] VITALS: BP 102/70
--- NOTE | 2020-07-01 15:46 | NUR ---
Pt being provided Glucerna with meals & HS. Signed: 07/01/20 at [address]
[2020-07-01] MEDS: ONDANSETRON 2MG/ML, 2ML IVPush PRN (16:56)
[2020-07-01 19:46] VITALS: BP 114/78
[2020-07-02] MEDS ORDERED: DEXTROSE 50%, 50ML SYRINGE IVPush PRN
[2020-07-02] MEDS ORDERED: GLUCAGON 1 MG IM PRN
[2020-07-02] MEDS ORDERED: DEXTROSE 4 GM TAB.CHEW PO PRN
[2020-07-02] MEDS: SODIUM CHLORIDE FLUSH 10ML SYR IVF SCH ×3 (00:18→21:00)
[2020-07-02 01:17] VITALS: BP 123/77
[2020-07-02 04:47] LABS: BASOPHILS # (AUTO) 0.03 x10^3/uL (0-0.1); BASOPHILS % (AUTO) 1 % (0-1); EOSINOPHILS # (AUTO) 0.02 x10^3/uL (0-0.4); EOSINOPHILS % (AUTO) 0 % (1-7); LYMPHOCYTES % (AUTO) 46 % (22-44); MD NO; MEAN CORPUSCULAR HEMOGLOBIN 28.7 pg (27.5-34.5); MEAN CORPUSCULAR HGB CONC 32.5 g/dL (33.2-36.2); MEAN CORPUSCULAR VOLUME 88.5 fL (81-97); MEAN PLATELET VOLUME 8.1 fL (7.4-10.4); MONOCYTES # (AUTO) 0.47 x10^3/uL (0.2-0.8); MONOCYTES % (AUTO) 9 % (2-9); NEUTROPHILS # (AUTO) 2.35 x10^3/uL (1.8-6.8); NEUTROPHILS % (AUTO) 45 % (42-75); PLATELET COUNT 247 x10^3/uL (130-400); RED BLOOD COUNT 4.08 x10^6/uL (4.38-5.82); RED CELL DISTRIBUTION WIDTH 13.4 % (9.4-14.8)
[2020-07-02 04:58] LABS: ANION GAP 3 mmol/L (5-15); CALCIUM 7.8 mg/dL (8.5-10.1); CHLORIDE 104 mmol/L (98-107); CREATININE 0.86 mg/dL (0.7-1.3)
[2020-07-02] MEDS: METRONIDAZOLE PMX 500MG/100ML 100 ML IV SCH ×4 (05:49→23:37)
[2020-07-02] MEDS: PANTOPRAZOLE GRAN. PKT 40 MG PO SCH ×2 (05:49→05:55)
[2020-07-02] MEDS: SODIUM CHLORIDE 0.9% 1,000 ML IV SCH (05:49)
[2020-07-02 06:23] VITALS: BP 122/74
[2020-07-02] MEDS ORDERED: MAGNESIUM SULFATE PMX 2GM/50ML 50 ML IV ONE (07:00)
[2020-07-02] MEDS ORDERED: POTASSIUM CHLORIDE 40 MEQ in SODIUM CHLORIDE 0.9% 500 ML IV ONE (07:00)
[2020-07-02] MEDS: INSULIN LISPRO 100 UNITS/ML, PEN SQ-INSULIN SCH ×4 (07:25→21:00)
[2020-07-02] MEDS: SUCRALFATE 1 GM/10 ML UDC PO SCH ×4 (07:41→20:59)
[2020-07-02] MEDS: LEVETIRACETAM 100 MG/ML ORAL SOL PO SCH ×2 (07:41→21:00)
[2020-07-02] MEDS: INSULIN GLARGINE 100 UNITS/ML, PEN SQ-INSULIN SCH ×2 (07:42→20:58)
[2020-07-02] MEDS: CEFTRIAXONE PMX 1GM/50ML 50 ML IV SCH ×2 (09:37→21:30)
[2020-07-02 14:55] VITALS: BP 116/80
[2020-07-02 20:00] VITALS: BP 113/77
[2020-07-03 02:30] VITALS: BP 116/67
[2020-07-03] MEDS: METRONIDAZOLE PMX 500MG/100ML 100 ML IV SCH (05:38)
[2020-07-03] MEDS: PANTOPRAZOLE GRAN. PKT 40 MG PO SCH (05:38)
[2020-07-03] MEDS ORDERED: POTASSIUM CHLORIDE 20 MEQ PACKET PO SCH (08:00)
[2020-07-03] MEDS: LEVETIRACETAM 100 MG/ML ORAL SOL PO SCH (08:35)
[2020-07-03] MEDS: SUCRALFATE 1 GM/10 ML UDC PO SCH (08:35)
[2020-07-03] MEDS: SODIUM CHLORIDE FLUSH 10ML SYR IVF SCH (08:36)
[2020-07-03] MEDS: INSULIN GLARGINE 100 UNITS/ML, PEN SQ-INSULIN SCH (08:36)
[2020-07-03] MEDS: INSULIN LISPRO 100 UNITS/ML, PEN SQ-INSULIN SCH (08:36)
[2020-07-03] MEDS ORDERED: MAGNESIUM OXIDE 400 MG TABLET PO SCH (09:00)
[2020-07-03] MEDS ORDERED: POTA20PA31 PO (09:30)
[2020-07-03] MEDS ORDERED: PANT20TA3 PO (09:31)
[2020-07-03] MEDS ORDERED: LEVE100S6 PO (09:32)
== END 2020-07-03 10:05 | disposition home or self-care (01) | DRG 377 ==
LOC: ED 22:45 → MERGE 22:45 → 4WST 23:27
PROVIDERS: ADMIT Internal Medicine; ATTEND Internal Medicine
PROC: 0DJ08ZZ Inspection of Upper Intestinal Tract, Via Natural or Artificial Opening Endoscopic (ICD-10-PCS; principal; 2020-06-29 11:00)
DX: K92.2 Gastrointestinal hemorrhage, unspecified (principal); E11.10 Type 2 diabetes mellitus with ketoacidosis without coma; E87.1 Hypo-osmolality and hyponatremia; R65.10 Systemic inflammatory response syndrome (SIRS) of non-infectious origin without acute organ dysfunction; K20.8 Other esophagitis; D72.829 Elevated white blood cell count, unspecified; K92.0 Hematemesis; E83.39 Other disorders of phosphorus metabolism; E83.51 Hypocalcemia; E83.42 Hypomagnesemia; E86.0 Dehydration; E87.6 Hypokalemia; F17.200 Nicotine dependence, unspecified, uncomplicated; F31.9 Bipolar disorder, unspecified; F39 Unspecified mood [affective] disorder; G40.909 Epilepsy, unspecified, not intractable, without status epilepticus; M16.12 Unilateral primary osteoarthritis, left hip; K21.9 Gastro-esophageal reflux disease without esophagitis; R01.1 Cardiac murmur, unspecified; Z82.49 Family history of ischemic heart disease and other diseases of the circulatory system; Z79.4 Long term (current) use of insulin; Z87.820 Personal history of traumatic brain injury; Z88.0 Allergy status to penicillin; Z91.19 Patient's noncompliance with other medical treatment and regimen; Z90.49 Acquired absence of other specified parts of digestive tract; Z03.818 Encounter for observation for suspected exposure to other biological agents ruled out
CPT/HCPCS: 36415; 71046; 80048; 80053; 81003; 82010; 82140; 82803; 82947; 82962; 83036; 83605; 83690; 83735; 84100; 84484; 85025; 85610; 85730; 86850; 86900; 87040; 87635; 93005; G0378; J0690; J0696; J1100; J1450; J1953; J2405; J2704; J2710; J3010; J3480; C9113; J0330; J1815; J3475; J7030; J7040

== ENCOUNTER 2020-09-14 21:22 | Emergency (ER) | payer MEDICAID, OTHER ==
[~2020-09-14] VITALS: Ht 185.4 cm; Wt 70.0 kg
[~2020-09-14 21:22] MED LIST changes: +LEVE100S6 PO; +MAGN400T9 PO; -PANT20TA3 PO; +PANT20TA4 PO; -PANT40TA5 PO; +PANT40TA6 PO; +POTA20PA31 PO; +SUCR1TAB33 PO
[2020-09-14] MEDS ORDERED: ONDANSETRON 2MG/ML, 2ML ONE (21:42)
[2020-09-14 21:59] LABS: BASOPHILS % (AUTO) 1 % (0-1); EOSINOPHILS % (AUTO) 0 % (1-7); LYMPHOCYTES % (AUTO) 30 % (22-44); MEAN CORPUSCULAR HEMOGLOBIN 29.2 pg (27.5-34.5); MEAN PLATELET VOLUME 8.4 fL (7.4-10.4); MONOCYTES % (AUTO) 6 % (2-9); NEUTROPHILS % (AUTO) 64 % (42-75); PLATELET COUNT 323 x10^3/uL (130-400); RED BLOOD COUNT 5.37 x10^6/uL (4.38-5.82); RED CELL DISTRIBUTION WIDTH 14.4 % (9.4-14.8)
[2020-09-14 22:00] LABS: MD NO
[2020-09-14] MEDS ORDERED: ONDANSETRON 2MG/ML, 2ML IVPush ONE (22:00)
[2020-09-14] MEDS ORDERED: SODIUM CHLORIDE 0.9% 1,000ML IVBOLUS ONE (22:00)
[2020-09-14 22:07] LABS: ALANINE AMINOTRANSFERASE 23 U/L (12-78); ALBUMIN 4.5 g/dL (3.4-5.0); ANION GAP 10 mmol/L (5-15); CALCIUM 10.1 mg/dL (8.5-10.1); CHLORIDE 92 mmol/L (98-107); CREATININE 1.37 mg/dL (0.7-1.3)
[2020-09-14 22:09] LABS: ALKALINE PHOSPHATASE 108 U/L (45-117); BILIRUBIN,TOTAL 0.9 mg/dL (0.2-1.0); TOTAL PROTEIN 8.8 g/dL (6.4-8.2)
--- NOTE | 2020-09-14 22:20 | NUR ---
PT REMAINS IN BED. CONNECTED TO BP, CARDIAC, AND O2 MONITORS. NADN. CALL LIGHT IN REACH. LAW ENFORCEMENT REMAINS AT BEDSIDE.
[2020-09-14] MEDS ORDERED: INSULIN SINGLE DOSE, ER ONE (22:48)
[2020-09-14] MEDS ORDERED: INSULIN REGULAR 100 UNITS/ML, 3ML VIAL IVPush ONE (23:00)
[2020-09-14 23:29] VITALS: BP 99/63
== END 2020-09-14 23:33 | disposition home or self-care (01) ==
LOC: ED 23:15
DX: E10.43 Type 1 diabetes mellitus with diabetic autonomic (poly)neuropathy (principal); K31.84 Gastroparesis; E10.65 Type 1 diabetes mellitus with hyperglycemia; R00.0 Tachycardia, unspecified
CPT/HCPCS: 36415; 80053; 82962; 83690; 85025; 93005; 96361; 96374; 96375; 99284; J1815; J2405; J7030